=== PATIENT | female | born 1940 | race Caucasian/White ===

== ENCOUNTER 2019-11-28 21:37 | Inpatient (IN) | payer MEDICARE, OTHER ==
[~2019-11-28] VITALS: Ht 160 cm; Wt 57.7 kg
[~2019-11-28 21:37] MED LIST: CORDARONE200 MG PO; LOSARTAN-HCTZ1 EACH PO; METOPROLOL SUCC25 MG PO; PILOCARPINE HCL5 MG PO; Z.0.HYZAAR 50-12.51 PO; Z.0.PRILOSEC20 MG PO
--- OUTSIDE RECORDS SUMMARY | 2019-11-28 21:40 | XMS REPORT ---
Author Author [facility] Address Unknown Phone Unavailable Care Team Providers Care Assistant Corporate Controller Name Role Phone Unavailable Unavailable Problems This patient has no known problems. Allergies, Adverse Reactions, Alerts This patient has no known allergies or adverse reactions. Medications This patient has no known medications. Encounters Start Date/Time End Date/Time Encounter Type Admission Type Attending Clinicians Care Facility Care Department Encounter ID 2019-10-13 06:11:00 2019-10-13 06:11:00 Outpatient [facility] [id number] Results Test Description Test Time Test Comments Text Results Atomic Results Result Comments BREAST ULTRASOUND BILATERAL 2019-06-17 09:25:17 - BREAST ULTRASOUND BILATERALULTRASOUND OF BOTH BREASTS AND BOTH AXILLA: 06/16/2019CLINICAL: Supplemental Screening for Dense Breast. Comparison is made to exams dated 05/19/2019 mammogram, 04/24/2016 mammogram, 05/09/2015 mammogram, and 05/09/2015 ultrasound - [facility]. Real-time ultrasound of both breasts and both axilla and clinical breast exam were performed. No abnormalities were seen sonographically in either axilla. Benign cysts and dilated ducts were seen bilaterally. No solid masses were seen. IMPRESSION: BENIGN There is no sonographic evidence of malignancy. Patient has been informed that she has areas of dense breast tissue that could make it difficult to find a small cancer. A screening mammogram and supplemental ultrasound for dense breast tissue is recommended in 1 year.Stephany Ramsey M.D. dm/:06/17/2019 09:25:17 Supervisor Intermediates: Dory Clemente FW, [facility] sent: BIRADS 1-2 Combo FU Letter Ultrasound BI-RADS: 2 Benign SCR MAMM BILATERAL LORENA CAD DIGITAL 2019-05-20 18:03:23 - SCR MAMM BILATERAL LORENA CAD DIGITALBILATERAL DIGITAL SCREENING MAMMOGRAM 3D/2D WITH CAD: 05/19/2019CLINICAL: Asymptomatic. Digital breast tomosynthesis was performed in addition to routine CC and MLO views. Current mammographic images were evaluated by either a Altruja M-Vu or a MobiTX ImageChecker CAD (computer aided detection system). Comparison is made to exams dated 04/24/2016 mammogram, 04/23 mammogram, and 04/20/2014 mammogram - [facility]. The tissue of both breasts is heterogeneously dense. This may lower the sensitivity of mammography. There is a benign calcification in the left breast. No suspicious mass, architectural distortion, malignant type calcification, or lymph node abnormality detected. Breast architecture is stable compared to prior exams.IMPRESSION: BENIGNThere is no mammographic evidence of malignancy. Resume annual screening mammography in one year. [facility]inai goetz/scooter:05/20/2019 18:03:23 Supervisor Intermediates: Regina WILDE, [facility] sent: BIRADS 1-2 Normal Mammogram BI-RADS: 2 Benign
[2019-11-28] MEDS ORDERED: SODIUM CHLORIDE 0.9% 1000ML 1,000 ML IV ONE (22:00)
[2019-11-28 22:03] LABS: BASOPHILS % 0.3 % (0.0-1.0); EOSINOPHILS # (AUTO) 0.2 (0.0-0.4); EOSINOPHILS % 1.6 % (0.0-6.0); HEMATOCRIT 34.7 % (34.2-44.1); LYMPHOCYTES # (AUTO) 1.9 (1.0-3.2); LYMPHOCYTES % 17.3 % (18.0-39.1); MEAN CORPUSCULAR HEMOGLOBIN 25.7 pg (28-32); MEAN CORPUSCULAR HGB CONC 31.7 g/dL (31-35); MEAN CORPUSCULAR VOLUME 81.1 fL (81-99); MONOCYTES # (AUTO) 1.1 (0.2-0.8); MONOCYTES % 10.3 % (4.4-11.3); NEUTROPHILS # (AUTO) 7.7 (2.1-6.9); NEUTROPHILS % 70.1 % (38.7-80.0); PLATELET COUNT 430 x10e3/uL (140-360); RED BLOOD COUNT 4.28 x10e6/uL (3.6-5.1); RED CELL DISTRIBUTION WIDTH 15.1 % (11.7-14.4)
[2019-11-28] MEDS ORDERED: ONDANSETRON HCL INJ 2MG/ML 2ML 2 MG/ML VIAL IV STA (22:08)
[2019-11-28] MEDS ORDERED: CIPROFLOXACIN 400 MG/D5W 200ML 200 ML IV STA (22:08)
[2019-11-28] MEDS ORDERED: METRONIDAZOLE 500MG/NS 100ML 100 ML IV STA (22:08)
[2019-11-28] MEDS ORDERED: MORPHINE SULFATE INJ 4 MG/ML INJ 1ML IV PRN (22:15)
[2019-11-28 22:21] LABS: ALANINE AMINOTRANSFERASE 13 IU/L (0-55); ALBUMIN 3.8 g/dL (3.5-5.0); ALBUMIN/GLOBULIN RATIO 0.7 (0.8-2.0); ALKALINE PHOSPHATASE 84 IU/L (40-150); ANION GAP 16.6 mmol/L (8-16); BLOOD UREA NITROGEN 12 mg/dL (7-26); BUN/CREATININE RATIO 13 (6-25); CALCIUM 9.7 mg/dL (8.4-10.2); CARBON DIOXIDE 26 mmol/L (22-29); CHLORIDE 99 mmol/L (98-107); CREATINE KINASE 37 IU/L (29-168); EST GLOMERULAR FILTRATION RATE > 60 ML/MIN (60-); GLUCOSE 111 mg/dL (74-118); POTASSIUM 3.6 mmol/L (3.5-5.1); SODIUM 138 mmol/L (136-145)
--- NOTE | 2019-11-28 23:59 | Diagnostic Imaging Report ---
EXAMINATION: CHEST SINGLE (PORTABLE) INDICATION: Abdominal pain COMPARISON: None FINDINGS: TUBES and LINES: None. LUNGS: Normal lung volumes. Lungs are clear. No consolidations. PLEURA: No pleural effusion or pneumothorax. HEART AND MEDIASTINUM: Lobular soft tissue fullness in the lower mediastinum. The cardiomediastinal silhouette is within normal size limits. Aortic calcifications. BONES AND SOFT TISSUES: Degenerative changes in the spine and shoulders. Soft tissues are unremarkable. UPPER ABDOMEN: No free air under the diaphragm. IMPRESSION: Findings of a sliding hiatal hernia. Signed by: Morales Jimenez DO on 11/28/2019 11:55 PM
[2019-11-29] VITALS (7 sets, daily range): BP systolic 102–151; BP diastolic 74–95
[2019-11-29 00:02] LABS: CLARITY,URINE CLEAR (CLEAR); COLOR,URINE YELLOW (YELLOW); LEUKOCYTE ESTERASE ,URINE NEGATIVE (NEGATIVE); NITRITE,URINE NEGATIVE (NEGATIVE)
[2019-11-29 00:03] LABS: BILIRUBIN,URINE NEGATIVE (NEGATIVE); KETONES,URINE NEGATIVE (NEGATIVE); PROTEIN,URINE DIPSTICK NEGATIVE (NEGATIVE); URINE UROBILINOGEN 0.2 mg/dL (0.2 - 1)
[2019-11-29 00:19] LABS: BACTERIA,URINE RARE /HPF; EPITHELIAL CELLS,URINE FEW /LPF; RBC,URINE 0-5 /HPF (0-5); WBC,URINE (MAN) 0-5 /HPF (0-5)
[2019-11-29] MEDS ORDERED: SODIUM CHLORIDE 0.9% 50ML 50 ML ONE (00:30)
[2019-11-29] MEDS ORDERED: IOPAMIDOL 370 MG/ML 200 ML INFUS..BTL INJ ONE (00:30)
--- NOTE | 2019-11-29 01:16 | Diagnostic Imaging Report ---
EXAM: CT Abdomen and Pelvis WITH contrast INDICATION: Diarrhea, cough COMPARISON: Chest x-ray 11/28/2019 TECHNIQUE: Abdomen and pelvis were scanned utilizing a multidetector helical scanner from the lung base to the pubic symphysis after administration of IV contrast. Coronal and sagittal reformations were obtained. Routine protocol was performed. Scan was performed when during portal venous phase. IV CONTRAST: 100 mL of Isovue 370 ORAL CONTRAST: None COMPLICATIONS: None RADIATION DOSE: Total DLP: 567 mGy*cm Estimated effective dose: (DLP x 0.015 x size factor) mSv CTDIvol has been reviewed. It is below the limits set by the Radiation Protocol Committee (RPC). Dose modulation, iterative reconstruction, and/or weight based adjustment of the mA/kV was utilized to reduce the radiation dose to as low as reasonably achievable. FINDINGS: LINES and TUBES: None. LOWER THORAX: Unremarkable HEPATOBILIARY: Subcentimeter hypodensity in the right hepatic lobe, too small to characterize, likely benign. No biliary ductal dilation. GALLBLADDER: There are cholecystectomy clips. SPLEEN: No splenomegaly. PANCREAS: There is fatty infiltration of the pancreas. No focal mass. ADRENALS: No adrenal nodules KIDNEYS/URETERS: Kidneys enhance symmetrically. No hydronephrosis. Right renal superior pole simple cyst. There are a few other scattered too small to characterize hypodensites, likely benign. No stones. GI TRACT: Partially visualized large sliding gastric hiatal hernia. Sigmoid colonic wall thickening and pericolonic fat stranding, with a 7 mm hypodensity within the wall of the sigmoid colon (series 300 image 55).. Extensive colonic diverticulosis, worst in the sigmoid colon. No abnormal distention evidence of bowel obstruction. Appendix is not clearly identified. There is however no fat stranding or adenopathy in the right lower quadrant to suggest appendicitis. PELVIC ORGANS/BLADDER: Hysterectomy. No adnexal masses. Urinary bladder unremarkable. LYMPH NODES: No lymphadenopathy. VESSELS: Scattered mild arterial vascular calcifications. PERITONEUM / RETROPERITONEUM: No free air or fluid. BONES: Degenerative changes in the spine hips and pelvis. SOFT TISSUES: Unremarkable. IMPRESSION: 1. Acute sigmoid diverticulitis, with a 7 mm intramural abscess. 2. Partially visualized large sliding gastric hiatal hernia. Signed by: Morales Jimenez DO on 11/29/2019 1:13 AM
[2019-11-29] MEDS ORDERED: METRONIDAZOLE 500MG/NS 100ML 100 ML IV STA (01:31)
[2019-11-29] MEDS ORDERED: CIPROFLOXACIN 400 MG/D5W 200ML 200 ML IV SCH ×2 (01:45→09:00)
[2019-11-29] MEDS ORDERED: OMEPRAZOLE40 MG PO (02:39)
[2019-11-29] MEDS ORDERED: AMLODIPINE BESYL5 MG PO (02:39)
[2019-11-29] MEDS ORDERED: LOSARTAN POTAS100 MG PO (02:39)
[2019-11-29] MEDS ORDERED: HYDROCHLOROTH12.5 MG PO (02:39)
[2019-11-29] MEDS ORDERED: GABAPENTIN100 MG PO (02:39)
--- NOTE | 2019-11-29 02:42 | NUR ---
Patient placed in hospital bed at this time.
[2019-11-29] MEDS: FENTANYL CITRATE/PF 100MCG/2 ML INJ IV ONE ×2 (03:21→05:24)
[2019-11-29] MEDS: METRONIDAZOLE 500MG/NS 100ML 100 ML IV SCH ×3 (05:12→21:39)
[2019-11-29] MEDS: ONDANSETRON HCL INJ 2MG/ML 2ML 2 MG/ML VIAL IV PRN (05:24)
--- NOTE | 2019-11-29 06:48 | History and Physical ---
REASON FOR ADMISSION: Diverticulitis with abscess. HISTORY OF PRESENT ILLNESS: The patient is a 79-year-old lady with a history of irritable bowel syndrome with diarrhea, who presented with a 1-week history of diarrhea, low-grade temps and increasing abdominal pain, last week went to the emergency room where she was found to have sigmoid diverticulitis with about a 7-mm abscess, so she has been admitted for further evaluation and treatment. PAST MEDICAL HISTORY: Significant for irritable bowel syndrome and hypertension. MEDICATIONS: See MAR. ALLERGIES: CODEINE, MORPHINE, SULFA, AND TRAZODONE. SOCIAL HISTORY: Nonsmoker and nondrinker. FAMILY HISTORY: Noncontributory. PHYSICAL EXAMINATION: VITAL SIGNS: Temperature 98.6, blood pressure 156/74, pulse 74, and sats 97%. GENERAL: She is in no apparent distress, lying in bed. NECK: Supple. CARDIOVASCULAR: Regular rate and rhythm. LUNGS: Clear to auscultation bilaterally. ABDOMEN: Good bowel sounds. She is soft and nondistended, but she is tender in the left lower quadrant area without peritoneal signs. EXTREMITIES: No clubbing or cyanosis. NEUROLOGIC: Nonfocal. ASSESSMENT AND PLAN: 1. Sigmoid diverticulitis with abscess. Continue with the current antibiotic regimen and we will consult Surgery to evaluate her. 2. Hypertension. We will continue to monitor. 3. Leukocytosis. Continue to monitor. 4. Anemia. We will continue to monitor. 5. Irritable bowel syndrome with diarrhea. We will also continue to monitor. Place the patient on antibiotics. Please see hospital chart for full details. MD MAURILIO Lerma/LEONARD /[id number]
--- NOTE | 2019-11-29 06:49 | NUR ---
Report to ANNAMARIE Watts.
--- NOTE | 2019-11-29 08:00 | NUR ---
Patient arrived from the ER at 0742 via a wheelchair. Patient was AOx3, VS WNL, c/o of pain in her knee and Dr. Saldana was called. Dr. Saldana did continue all over her medications and also ordered saline nasal spray due to SJ syndrome (c/o dry nasal cavity). Patient is NPO until the next steps are determined. Patient has a 20g in the R AC. Patient is ordered 2 IV antibiotics. Will continue to monitor.
[2019-11-29] MEDS ORDERED: SODIUM CHLORIDE 0.9% 250ML 250 ML ONE (08:38)
[2019-11-29] MEDS: PIPER-TAZ 3.375 GM 50 ML IV SCH ×3 (08:49→16:39)
--- NOTE | 2019-11-29 10:24 | Consultation ---
DATE OF CONSULTATION: 11/29/2019 CHIEF COMPLAINT: Abdominal pain. HISTORY OF PRESENT ILLNESS: This patient is a 79-year-old female with 1-week history of progressive abdominal pain, particularly in the lower abdomen with anorexia, nausea, but no vomiting. Obstipations and constipations present. The patient denies fever or chills. PAST MEDICAL HISTORY: Positive for atrial fibrillation, hypertension, and Sjogren syndrome. PAST SURGICAL HISTORY: 1. Positive for hysterectomy. 2. Cholecystectomy. 3. Bilateral knee replacement. ALLERGIES: SHE HAS ALLERGIC REACTIONS TO SULFA, TRAZODONE, CODEINE AND MORPHINE. SOCIAL HABITS: She denies smoking or alcohol use. REVIEW OF SYSTEMS: As in HPI. PHYSICAL EXAMINATION: VITAL SIGNS: Stable. She had a T-max of 100. GENERAL: The patient is awake, alert, in moderate discomfort. HEENT: Sclerae anicteric. NECK: Supple. LUNGS: Clear. HEART: Regular rate and rhythm. ABDOMEN: Soft with mild distention and some minimal guarding in the left lower quadrant with no rebound. EXTREMITIES: No cyanosis or edema. LABORATORY DATA: White cell count is 11, hemoglobin 11. Creatinine of 0.9. CT of the abdomen shows sigmoid diverticulitis with a small 7 mm focus of intramural abscess. Large gastric hiatal hernia noted. ASSESSMENT: Acute sigmoid diverticulitis with small perforations intramurally. PLAN: Continue IV antibiotics. N.p.o. until the GI activity resume. We will follow the patient. MD NICO Soares/LEONARD /[id number]
[2019-11-29] MEDS: GABAPENTIN 300 MG CAP PO SCH ×2 (11:50→16:39)
[2019-11-29] MEDS ORDERED: SALINE 0.65% NAS SOLN 1 SPRAY BTL PRN (12:15)
[2019-11-29] MEDS: AMLODIPINE BESYLATE 5 MG TAB PO SCH (16:39)
--- NOTE | 2019-11-29 19:14 | NUR ---
Received bedside from day nurse. Patient awake and sitting up in bed, no s/s of distress at this time. Bed locked and in low position, call light placed within reach. All safety measures in place. Will continue to monitor.
--- NOTE | 2019-11-29 21:47 | NUR ---
Patient complaining of abdominal pain. Paged Dr. Saldana and received orders to give IV Tylenol Q6 PRN.
[2019-11-29] MEDS ORDERED: ACETAMINOPHEN 1000 MG/100 ML IV PRN (22:00)
[2019-11-30] VITALS (9 sets, daily range): BP systolic 94–116; BP diastolic 53–70
[2019-11-30] MEDS: PIPER-TAZ 3.375 GM 50 ML IV SCH ×4 (00:17→17:11)
[2019-11-30] MEDS: METRONIDAZOLE 500MG/NS 100ML 100 ML IV SCH ×3 (05:14→21:42)
[2019-11-30 05:28] LABS: BASOPHILS % 0.4 % (0.0-1.0); EOSINOPHILS # (AUTO) 0.3 (0.0-0.4); EOSINOPHILS % 3.5 % (0.0-6.0); HEMATOCRIT 31.4 % (34.2-44.1); HEMOGLOBIN 9.7 g/dL (12.0-16.0); LYMPHOCYTES # (AUTO) 1.6 (1.0-3.2); LYMPHOCYTES % 19.9 % (18.0-39.1); MEAN CORPUSCULAR HEMOGLOBIN 25.3 pg (28-32); MEAN CORPUSCULAR HGB CONC 30.9 g/dL (31-35); MONOCYTES # (AUTO) 1.2 (0.2-0.8); MONOCYTES % 14.3 % (4.4-11.3); NEUTROPHILS % 61.5 % (38.7-80.0); PLATELET COUNT 369 x10e3/uL (140-360); RED BLOOD COUNT 3.83 x10e6/uL (3.6-5.1); RED CELL DISTRIBUTION WIDTH 15.1 % (11.7-14.4)
[2019-11-30 06:00] LABS: ALANINE AMINOTRANSFERASE 11 IU/L (0-55); ALBUMIN/GLOBULIN RATIO 0.7 (0.8-2.0); ALKALINE PHOSPHATASE 65 IU/L (40-150); ANION GAP 10.4 mmol/L (8-16); BLOOD UREA NITROGEN 13 mg/dL (7-26); BUN/CREATININE RATIO 15 (6-25); CALCIUM 8.8 mg/dL (8.4-10.2); CARBON DIOXIDE 26 mmol/L (22-29); CHLORIDE 104 mmol/L (98-107); CREATININE, SERUM 0.87 mg/dL (0.57-1.11); EST GLOMERULAR FILTRATION RATE > 60 ML/MIN (60-); GLUCOSE 75 mg/dL (74-118); POTASSIUM 3.4 mmol/L (3.5-5.1); SODIUM 137 mmol/L (136-145)
--- NOTE | 2019-11-30 07:04 | NUR ---
Paged Dr. Saldana regarding patient's potassium level of 3.4. Awaiting reply at this time.
--- NOTE | 2019-11-30 07:06 | NUR ---
Bedside report given to day nurse. Patient awake and resting in bed, no s/s of distress at this time. All safety measures in place.
[2019-11-30] MEDS ORDERED: POTASSIUM CHLORIDE 20 MEQ TAB CR PO STA (07:11)
--- NOTE | 2019-11-30 07:11 | NUR ---
Received orders from Dr. Saldana to give 40 mEq potassium PO once. Addendum: 11/30/19 at 0713 by Madalyn Matthews RN Give IV, not PO, due to patient's NPO status.
[2019-11-30] MEDS ORDERED: PANTOPRAZOLE SOD 40 MG TABEC PO SCH (07:30)
[2019-11-30] MEDS: POTASSIUM CHLORIDE 20MEQ/100ML 200 ML IV ONE ×2 (08:04→09:50)
[2019-11-30] MEDS ORDERED: SODIUM CHLORIDE 0.9% 250ML 250 ML ONE (08:37)
[2019-11-30] MEDS: PANTOPRAZOLE SOD 40 MG TABEC PO SCH ×3 (09:00→17:11)
[2019-11-30] MEDS ORDERED: HYDROCHLOROTHIAZIDE 25 MG TAB PO SCH (09:00)
[2019-11-30] MEDS: AMLODIPINE BESYLATE 5 MG TAB PO SCH ×2 (09:00→17:11)
[2019-11-30] MEDS ORDERED: LOSARTAN POTASSIUM 100 MG TAB PO SCH (09:00)
[2019-11-30] MEDS: GABAPENTIN 300 MG CAP PO SCH ×3 (09:00→17:11)
[2019-11-30] MEDS: ONDANSETRON HCL INJ 2MG/ML 2ML 2 MG/ML VIAL IV PRN (09:51)
[2019-11-30] MEDS ORDERED: POTASSIUM CHLORIDE 20 MEQ TAB CR PO ONE (10:55)
[2019-11-30] MEDS: ZOLPIDEM TARTRATE 5 MG TAB PO PRN (23:24)
[2019-12-01] VITALS (11 sets, daily range): BP systolic 95–127; BP diastolic 59–70
[2019-12-01] MEDS: PIPER-TAZ 3.375 GM 50 ML IV SCH ×4 (00:06→18:19)
--- NOTE | 2019-12-01 03:50 | NUR ---
PATIENT WAS GIVEN AMBIEN OVERNIGHT FOR SLEEPLESSNESS, PATIENT SEEN DURING HOURLY ROUNDING AWAKE IN BED, C/O RIGHT LEG PAIN, R/T SCIATIC NERVE PAIN 12/15, ASKING FOR HEATING PAD, GIVEN DIY WARM COMPRESS FOR RIGHT LEG, PATIENT TOLERATED WARMTH OF COMPRESS WELL, RESTING IN BED CALL LIGHT WITHIN RECH
[2019-12-01] MEDS: METRONIDAZOLE 500MG/NS 100ML 100 ML IV SCH ×3 (05:24→21:59)
--- NOTE | 2019-12-01 09:00 | NUR ---
aware of B/P 102/59. BP medications on hold.
[2019-12-01] MEDS: PANTOPRAZOLE SOD 40 MG TABEC PO SCH ×2 (09:20→17:56)
[2019-12-01] MEDS: GABAPENTIN 300 MG CAP PO SCH ×2 (09:20→17:56)
[2019-12-01] MEDS ORDERED: MAGNESIUM HYDROXIDE 30 ML UDC PO ONE (10:20)
[2019-12-01] MEDS ORDERED: SODIUM CHLORIDE 0.9% 250ML 250 ML ONE (11:58)
[2019-12-01] MEDS: ONDANSETRON HCL INJ 2MG/ML 2ML 2 MG/ML VIAL IV PRN (12:20)
[2019-12-01] MEDS: DOCUSATE SODIUM 100 MG CAP PO SCH (17:00)
--- NOTE | 2019-12-01 19:04 | NUR ---
Report given to oncoming nurse. AAOx4. Call light within reach, bed locked and in low position, and SR up X2.
--- NOTE | 2019-12-01 22:00 | NUR ---
PATIENT REQUESTING PRN INSOMNIA MEDICATION, REQUEST CARRIED OUT, GIVEN AMBIEN PO, TOLERATED WELL
[2019-12-02] VITALS (10 sets, daily range): BP systolic 102–149; BP diastolic 61–81
[2019-12-02] MEDS: PIPER-TAZ 3.375 GM 50 ML IV SCH ×4 (00:50→18:50)
--- NOTE | 2019-12-02 01:49 | NUR ---
call light answered, pt seen lying in bed, grimacing, c/o pain level 7-8/10 r/t sciatic right leg pain,
[2019-12-02] MEDS: ONDANSETRON HCL 4 MG ORAL DISINTEGRATING TAB PO PRN ×2 (02:10→16:12)
[2019-12-02] MEDS: HYDROCODONE/APAP 5MG-325MG TAB PO PRN ×2 (02:11→12:53)
--- NOTE | 2019-12-02 04:57 | NUR ---
patient c/o heartburn and diarrhea, MD JACKSON MADE AWARE VERBALLY DURING ROUNDING, ORDER MAALOX q4H PRN FOR INDIGESTION TO START CHYNA, ORDER CARRIED OUT Addendum: 12/02/19 at 0459 by ALMA RECINOS RN PER MD JACKSON HE WILL ADD TO eMAR MEDICATION FOR DIARRHEA PRN
[2019-12-02] MEDS: METRONIDAZOLE 500MG/NS 100ML 100 ML IV SCH ×2 (05:02→13:38)
[2019-12-02 05:23] LABS: BASOPHILS % 0.4 % (0.0-1.0); EOSINOPHILS # (AUTO) 0.3 (0.0-0.4); EOSINOPHILS % 4.4 % (0.0-6.0); HEMATOCRIT 29.8 % (34.2-44.1); HEMOGLOBIN 9.4 g/dL (12.0-16.0); LYMPHOCYTES # (AUTO) 1.8 (1.0-3.2); LYMPHOCYTES % 23.2 % (18.0-39.1); MEAN CORPUSCULAR HEMOGLOBIN 25.8 pg (28-32); MEAN CORPUSCULAR HGB CONC 31.5 g/dL (31-35); MEAN CORPUSCULAR VOLUME 81.6 fL (81-99); MONOCYTES # (AUTO) 0.9 (0.2-0.8); NEUTROPHILS # (AUTO) 4.7 (2.1-6.9); NEUTROPHILS % 59.6 % (38.7-80.0); PLATELET COUNT 377 x10e3/uL (140-360); RED BLOOD COUNT 3.65 x10e6/uL (3.6-5.1); RED CELL DISTRIBUTION WIDTH 14.8 % (11.7-14.4)
[2019-12-02] MEDS: MAGNESIUM/ALUMINUM/SIMETHICONE 30 ML UDC PO PRN ×2 (05:30→16:11)
[2019-12-02] MEDS ORDERED: LOPERAMIDE HCL 2 MG CAP PO PRN (05:30)
[2019-12-02] MEDS: LOPERAMIDE HCL 2 MG CAP PO SCH ×2 (05:30→05:57)
[2019-12-02] MEDS ORDERED: OMEPRAZOLE 20 MG CAP PO STA (05:31)
[2019-12-02 05:57] LABS: ALANINE AMINOTRANSFERASE 11 IU/L (0-55); ALBUMIN 2.9 g/dL (3.5-5.0); ALBUMIN/GLOBULIN RATIO 0.6 (0.8-2.0); ALKALINE PHOSPHATASE 67 IU/L (40-150); ANION GAP 11.6 mmol/L (8-16); BLOOD UREA NITROGEN 7 mg/dL (7-26); BUN/CREATININE RATIO 9 (6-25); CALCIUM 8.8 mg/dL (8.4-10.2); CARBON DIOXIDE 22 mmol/L (22-29); CHLORIDE 105 mmol/L (98-107); CREATININE, SERUM 0.76 mg/dL (0.57-1.11); EST GLOMERULAR FILTRATION RATE > 60 ML/MIN (60-); GLUCOSE 103 mg/dL (74-118); MAGNESIUM 1.5 MG/DL (1.3-2.1); POTASSIUM 3.6 mmol/L (3.5-5.1); SODIUM 135 mmol/L (136-145)
[2019-12-02] MEDS: ONDANSETRON HCL INJ 2MG/ML 2ML 2 MG/ML VIAL IV PRN (05:57)
--- NOTE | 2019-12-02 07:00 | NUR ---
Notified of blood culture results. No new orders at this time.
[2019-12-02] MEDS: DOCUSATE SODIUM 100 MG CAP PO SCH ×2 (07:07→16:13)
[2019-12-02] MEDS: LOPERAMIDE HCL 2 MG CAP PO PRN ×2 (07:08→15:27)
--- NOTE | 2019-12-02 07:52 | NUR ---
Patient c/o heartburn see orders.
[2019-12-02] MEDS: PANTOPRAZOLE SOD 40 MG TABEC PO SCH ×2 (08:18→16:11)
[2019-12-02] MEDS: GABAPENTIN 300 MG CAP PO SCH ×2 (08:18→16:11)
[2019-12-02] MEDS: CALCIUM CARBONATE 500 MG CHEWABLE TABS PO PRN ×2 (13:13→13:15)
--- NOTE | 2019-12-02 19:10 | NUR ---
Report given to oncoming nurse. AAOx4. Resting in bed. Bed locked and in low position, SR up x2, call light within reach.
[2019-12-03] VITALS (9 sets, daily range): BP systolic 112–159; BP diastolic 70–90
[2019-12-03] MEDS: METRONIDAZOLE 500MG/NS 100ML 100 ML IV SCH ×4 (00:40→22:15)
[2019-12-03] MEDS: PIPER-TAZ 3.375 GM 50 ML IV SCH ×4 (00:50→20:20)
[2019-12-03] MEDS: LOPERAMIDE HCL 2 MG CAP PO SCH (03:52)
--- NOTE | 2019-12-03 06:11 | Progress Note ---
DATE: SUBJECTIVE: The patient came in with diverticulitis with abscess, currently on a soft mechanical diet. The patient had diarrhea yesterday, 1 bout of diarrhea and 1 bowel movement. No chest pain. No shortness of breath. Complains of allergic symptoms, which she takes nasal spray at home. CURRENT MEDICATIONS: Include amlodipine for blood pressure, hydrochlorothiazide, hydrocodone as needed, losartan, magnesium, Zofran as needed, pantoprazole, and Zosyn. OBJECTIVE: VITAL SIGNS: Temperature is 98.2, pulse of 76, respirations of 18, blood pressure is 112/70, pulse oximetry of 97% on room air. HEENT: Normocephalic and atraumatic. Pupils are reactive. CVS: S1 and S2 normal. Regular rate and rhythm. ABDOMEN: Soft, slightly tender in the left lower quadrant. EXTREMITIES: No clubbing, no cyanosis, no edema. LABORATORY VALUES: From yesterday, white count 7.1, hemoglobin of 9.4, hematocrit of 29.8. Chemistries; sodium of 135, potassium is 3.6. MICROBIOLOGY: Blood culture grew Staphylococcus aureus, sensitive to Levaquin. PLAN: Continue to monitor the patient. The patient is doing better. Continue current diet. X-rays and CT scans reviewed. Again, diagnosis will be diverticular abscess and positive blood culture Gram stain. Further recommendation per clinical course. We will continue to monitor the patient and blood work in the morning. DISPOSITION: Plan to discharge in 1 to 2 days. MD TESSIE Martinez/MODL /[id number]
[2019-12-03] MEDS: AZELASTINE HCL 137 MCG NASAL SPRAY NS SCH ×2 (09:00→12:42)
[2019-12-03] MEDS: DOCUSATE SODIUM 100 MG CAP PO SCH ×2 (09:00→12:42)
[2019-12-03] MEDS: LORATADINE 10 MG TAB PO SCH (11:20)
[2019-12-03] MEDS: GABAPENTIN 300 MG CAP PO SCH ×2 (11:20→17:26)
[2019-12-03] MEDS: PANTOPRAZOLE SOD 40 MG TABEC PO SCH ×2 (11:20→17:27)
[2019-12-03] MEDS: HYDROCODONE/APAP 5MG-325MG TAB PO PRN (17:44)
--- NOTE | 2019-12-03 19:41 | NUR ---
Received bedside report from day nurse. Patient awake and resting in place, no s/s of distress at this time. Bed locked and in low position, call light placed within reach. All safety measures in place. Will continue to monitor.
[2019-12-03] MEDS: ZOLPIDEM TARTRATE 5 MG TAB PO PRN (22:30)
[2019-12-04] VITALS (9 sets, daily range): BP systolic 126–147; BP diastolic 69–91
[2019-12-04] MEDS: PIPER-TAZ 3.375 GM 50 ML IV SCH ×4 (01:30→20:29)
[2019-12-04] MEDS: METRONIDAZOLE 500MG/NS 100ML 100 ML IV SCH ×3 (05:44→21:37)
[2019-12-04 06:02] LABS: BASOPHILS % 0.6 % (0.0-1.0); EOSINOPHILS # (AUTO) 0.5 (0.0-0.4); HEMATOCRIT 29.9 % (34.2-44.1); HEMOGLOBIN 9.6 g/dL (12.0-16.0); LYMPHOCYTES # (AUTO) 1.7 (1.0-3.2); LYMPHOCYTES % 33.5 % (18.0-39.1); MEAN CORPUSCULAR HGB CONC 32.1 g/dL (31-35); MONOCYTES # (AUTO) 0.8 (0.2-0.8); MONOCYTES % 14.7 % (4.4-11.3); NEUTROPHILS # (AUTO) 2.1 (2.1-6.9); PLATELET COUNT 408 x10e3/uL (140-360); RED BLOOD COUNT 3.69 x10e6/uL (3.6-5.1); RED CELL DISTRIBUTION WIDTH 14.9 % (11.7-14.4)
[2019-12-04 06:29] LABS: ANION GAP 9.6 mmol/L (8-16); BLOOD UREA NITROGEN 5 mg/dL (7-26); BUN/CREATININE RATIO 7 (6-25); CARBON DIOXIDE 27 mmol/L (22-29); CHLORIDE 106 mmol/L (98-107); CREATININE, SERUM 0.69 mg/dL (0.57-1.11); EST GLOMERULAR FILTRATION RATE > 60 ML/MIN (60-); GLUCOSE 89 mg/dL (74-118); POTASSIUM 3.6 mmol/L (3.5-5.1); SODIUM 139 mmol/L (136-145)
--- NOTE | 2019-12-04 07:06 | NUR ---
Bedside report given to day nurse. Patient awake and resting in bed, no s/s of distress at this time. Bed locked and in low position, call light placed within reach. All safety measures in place.
--- NOTE | 2019-12-04 07:06 | NUR ---
bedside shift report received from PM nurse. pt in stable condition. will continue to monitor.
--- NOTE | 2019-12-04 08:09 | Progress Note ---
DATE: SUBJECTIVE: The patient is a 79-year-old female, who came in with diverticulitis with an abscess, which is contained. Currently, the patient is feeling better. Positive for flatus and positive for bowel movements, which are more consistent compared to diarrhea yesterday. Medicines are reviewed. The patient's nasal congestion is better. OBJECTIVE: VITAL SIGNS: Temperature is 96.9, afebrile, pulse of 75, respirations of 18, blood pressure is 147/91, pulse oximetry of 98%. HEENT: Normocephalic and atraumatic. Pupils are reactive to light and accommodation. CVS: S1 and S2 are normal. Regular rate and rhythm. ABDOMEN: Nontender, nondistended. EXTREMITIES: No clubbing, no cyanosis, no edema. LABORATORY VALUES: White count today was 5.10, hemoglobin of 9.6, hematocrit of 29.2. Chemistry shows sodium of 139, potassium of 3.6, BUN of 5, and creatinine of 0.69. ASSESSMENT: Ms. Lan Cuff with: 1. Diverticulitis with abscess. Plan, continue to monitor the patient. X-rays and CT scans are reviewed, doing better. 2. Nasal congestion. Continue on current medication. 3. Nausea. Continue medication. 4. Pain medicine management, [place] 5/325. The patient is currently on and metronidazole. Further recommendation per clinical course. We will continue to monitor the patient. Advance her diet today and possible discharge in 1 to 2 days. MD TESSIE Martinez/LEONARD /[id number]
[2019-12-04] MEDS: LORATADINE 10 MG TAB PO SCH (08:38)
[2019-12-04] MEDS: DOCUSATE SODIUM 100 MG CAP PO SCH ×2 (08:38→16:11)
[2019-12-04] MEDS: GABAPENTIN 300 MG CAP PO SCH ×2 (08:38→17:49)
[2019-12-04] MEDS: PANTOPRAZOLE SOD 40 MG TABEC PO SCH ×2 (08:38→17:49)
[2019-12-04] MEDS: AZELASTINE HCL 137 MCG NASAL SPRAY NS SCH ×2 (08:38→16:11)
[2019-12-04] MEDS: HYDROCODONE/APAP 5MG-325MG TAB PO PRN ×2 (08:44→21:10)
--- NOTE | 2019-12-04 19:32 | NUR ---
Received bedside report from day nurse. Patient awake and resting in bed, no s/s of distress at this time. Bed locked and in low position, call light placed within reach. All safety measures in place. Will continue to monitor.
[2019-12-04] MEDS: ZOLPIDEM TARTRATE 5 MG TAB PO PRN (23:34)
[2019-12-05] VITALS (8 sets, daily range): BP systolic 126–161; BP diastolic 82–88
[2019-12-05] MEDS: PIPER-TAZ 3.375 GM 50 ML IV SCH ×4 (01:39→20:58)
--- NOTE | 2019-12-05 04:58 | NUR ---
Per radiology, keep patient NPO until CT scan scheduled for 0800. Patient verbalized understanding.
[2019-12-05] MEDS: METRONIDAZOLE 500MG/NS 100ML 100 ML IV SCH ×3 (05:02→21:49)
[2019-12-05 06:07] LABS: ANION GAP 8.6 mmol/L (8-16); BLOOD UREA NITROGEN 6 mg/dL (7-26); BUN/CREATININE RATIO 8 (6-25); CALCIUM 8.6 mg/dL (8.4-10.2); CARBON DIOXIDE 28 mmol/L (22-29); CHLORIDE 106 mmol/L (98-107); CREATININE, SERUM 0.76 mg/dL (0.57-1.11); EST GLOMERULAR FILTRATION RATE > 60 ML/MIN (60-); GLUCOSE 91 mg/dL (74-118); POTASSIUM 3.6 mmol/L (3.5-5.1); SODIUM 139 mmol/L (136-145)
--- NOTE | 2019-12-05 07:19 | NUR ---
Bedside report given to day nurses. Patient awake and resting in bed, no s/s of distress at this time. Bed locked and in low position, call light placed within reach. All safety measures in place.
[2019-12-05] MEDS ORDERED: SODIUM CHLORIDE 0.9% 50ML 50 ML ONE (08:49)
[2019-12-05] MEDS ORDERED: IOPAMIDOL 370 MG/ML 200 ML INFUS..BTL INJ ONE (08:49)
--- NOTE | 2019-12-05 08:57 | NUR ---
Nutrition Screen Note RD Recommendation for Physician: -Continue current diet per MD. Plan of Care: RD following, monitoring for tolerance and adequacy Nutrition reason for involvement: (LOS) Primary Diagnose(s): Generalized ab pain PMH: significant for irritable bowel syndrome and hypertension. Ht: 63 in Wt: 127 lb BMI: 22.5 kg/m2 IBW:[address] Assessment: (12/04) 79 YOF admitted for ab pain with PMH listed above. Per MD note the pt came in with diverticulitis with an abscess, which is contained. The pt was seen resting in bed. She reported her appetite has been in the middle of poor and good. Pt has been consuming 25-75% of her meals per EMR. Pt was unsure of any weight loss. Pt was here in Sep and she was 120 lbs suggesting no recent weight loss. The pt denied N/V/C/chewing or swallowing issues as well as any food allergies. Pt reported she did have some diarrhea but it is better now, LBM: 12/03. Pt is on colace and Imodium. Chart reviewed. Labs and meds reviewed. Pt had no other questions or concerns regarding her low fiber diet. Chart reviewed. Will continue to monitor. Current Diet: Gi soft Malnutrition Evaluation (12/04) The patient does not meet criteria for a specified degree of malnutrition at this time. Will re-evaluate at follow-up as appropriate. Diet Education Needs Assessment: Diet education not indicated. Diet Adequacy: (Meeting calorie needs, Meeting protein needs) Nutrition Care Level: low Signed: Laisha Dozier, RD, LD
[2019-12-05] MEDS: PANTOPRAZOLE SOD 40 MG TABEC PO SCH ×2 (11:34→16:47)
[2019-12-05] MEDS: GABAPENTIN 300 MG CAP PO SCH ×2 (11:34→16:47)
[2019-12-05] MEDS: DOCUSATE SODIUM 100 MG CAP PO SCH ×2 (11:34→16:47)
[2019-12-05] MEDS: LORATADINE 10 MG TAB PO SCH (11:35)
--- NOTE | 2019-12-05 12:24 | Diagnostic Imaging Report ---
EXAM: CT Abdomen and Pelvis WITH intravenous contrast INDICATION: Diverticular abscess COMPARISON: CT abdomen and pelvis of 11/29/2019 TECHNIQUE: Abdomen and pelvis were scanned utilizing a multidetector helical scanner from the lung base to the pubic symphysis after administration of IV contrast. Coronal and sagittal reformations were obtained. Routine protocol was performed. Scan was performed during portal venous phase. IV CONTRAST: 100mL of Isovue 370 ORAL CONTRAST: None RADIATION DOSE: Total DLP: 263 mGy*cm Dose modulation, iterative reconstruction, and/or weight based adjustment of the mA/kV was utilized to reduce the radiation dose to as low as reasonably achievable. FINDINGS: LOWER THORAX: Normal. HEPATOBILIARY: Diffuse hepatic steatosis. No focal liver lesion. Unchanged right hepatic cyst. No biliary ductal dilation. Status post cholecystectomy. SPLEEN: No splenomegaly. PANCREAS: No focal masses or ductal dilatation. ADRENALS: No adrenal nodules. KIDNEYS/URETERS: No hydronephrosis or renal calculi. Unchanged right renal cyst. PELVIC ORGANS/BLADDER: Hysterectomy. PERITONEUM / RETROPERITONEUM: No free air or fluid. LYMPH NODES: No lymphadenopathy. VESSELS: Moderate atherosclerotic calcifications of the nonaneurysmal abdominal aorta and major branches. GI TRACT: Diverticulosis. Interval resolution of intramural diverticular abscess. Reduction in wall thickening and fat stranding associated with the previously involved segment of sigmoid colon consistent with resolving diverticulitis. Unchanged hiatal hernia. BONES AND SOFT TISSUES: No acute osseous injury. IMPRESSION: Resolving diverticulitis. Interval resolution of intramural sigmoid colon diverticular abscess. Signed by: Oj Da Silva MD on 12/05/2019 12:21 PM
[2019-12-05] MEDS: AZELASTINE HCL 137 MCG NASAL SPRAY NS SCH ×2 (12:55→16:47)
[2019-12-05] MEDS: HYDROCODONE/APAP 5MG-325MG TAB PO PRN ×2 (15:11→21:24)
--- NOTE | 2019-12-05 19:15 | NUR ---
Received patient awake, not in distress, call light within easy reach, advised to call for assistance when needed, will continue to monitor closely
[2019-12-06] VITALS (10 sets, daily range): BP systolic 121–162; BP diastolic 65–97
[2019-12-06] MEDS: PIPER-TAZ 3.375 GM 50 ML IV SCH ×4 (02:04→20:19)
[2019-12-06] MEDS: HYDROCODONE/APAP 5MG-325MG TAB PO PRN ×3 (04:49→16:45)
[2019-12-06] MEDS: METRONIDAZOLE 500MG/NS 100ML 100 ML IV SCH ×3 (05:33→22:16)
[2019-12-06] MEDS: CYCLOBENZAPRINE HCL 10 MG TAB PO PRN ×2 (06:10→20:19)
[2019-12-06] MEDS ORDERED: SODIUM CHLORIDE 0.9% 250ML 250 ML ONE (06:17)
--- NOTE | 2019-12-06 07:12 | NUR ---
bedside rounding done with dayshift RN, call light within easy reach
[2019-12-06] MEDS: DOCUSATE SODIUM 100 MG CAP PO SCH ×2 (08:15→17:26)
[2019-12-06] MEDS: LORATADINE 10 MG TAB PO SCH (08:15)
[2019-12-06] MEDS: GABAPENTIN 300 MG CAP PO SCH ×2 (08:16→17:26)
[2019-12-06] MEDS: PANTOPRAZOLE SOD 40 MG TABEC PO SCH ×2 (08:16→17:26)
[2019-12-06] MEDS: AZELASTINE HCL 137 MCG NASAL SPRAY NS SCH ×2 (08:16→17:26)
[2019-12-06] MEDS: ZOLPIDEM TARTRATE 5 MG TAB PO PRN (22:24)
[2019-12-07] VITALS (8 sets, daily range): BP systolic 129–149; BP diastolic 81–89
[2019-12-07] MEDS: HYDROCODONE/APAP 5MG-325MG TAB PO PRN ×3 (00:46→23:40)
[2019-12-07] MEDS: PIPER-TAZ 3.375 GM 50 ML IV SCH ×4 (02:25→20:42)
[2019-12-07] MEDS: METRONIDAZOLE 500MG/NS 100ML 100 ML IV SCH ×3 (06:04→21:57)
--- NOTE | 2019-12-07 07:00 | NUR ---
bedside shift report received pt in stable condition, denies pain at this time, updated on poc voiced understanding, l fa 22 g no ss of infiltration noted , no other co voiced call light in reach will continue to monitor
[2019-12-07] MEDS: DOCUSATE SODIUM 100 MG CAP PO SCH ×2 (09:00→17:00)
[2019-12-07] MEDS: AZELASTINE HCL 137 MCG NASAL SPRAY NS SCH ×2 (09:37→17:00)
[2019-12-07] MEDS: LORATADINE 10 MG TAB PO SCH (09:37)
[2019-12-07] MEDS: GABAPENTIN 300 MG CAP PO SCH ×2 (09:38→17:00)
[2019-12-07] MEDS: PANTOPRAZOLE SOD 40 MG TABEC PO SCH ×2 (09:38→17:00)
[2019-12-07] MEDS: CYCLOBENZAPRINE HCL 10 MG TAB PO PRN (09:44)
--- NOTE | 2019-12-07 19:06 | NUR ---
RECEIVED THE PATIENT IN REPORT.AAOX3.SITTING IN THE RECYLINER.STABLE CONDITION.
[2019-12-07] MEDS: ZOLPIDEM TARTRATE 5 MG TAB PO PRN (21:57)
[2019-12-08 00:13] VITALS: BP 140/90
--- NOTE | 2019-12-08 01:19 | NUR ---
Resting well.phone and call light within reach.instructed to call for assistance as needed.
[2019-12-08] MEDS: PIPER-TAZ 3.375 GM 50 ML IV SCH ×3 (02:07→14:00)
[2019-12-08 04:00] VITALS: BP 150/85
[2019-12-08] MEDS: METRONIDAZOLE 500MG/NS 100ML 100 ML IV SCH ×2 (05:32→14:00)
--- NOTE | 2019-12-08 05:46 | Discharge Summary ---
DISCHARGE DIAGNOSIS: Diverticular abscess. HOSPITAL COURSE: The patient is a lady, who presented with lower abdominal pain, where she was noticed on CT scan to have a diverticulitis with an abscess formation. So, she was brought and placed on IV antibiotics. She did have 1 culture grew out Staph aureus out of 2. The patient made significant improvement in a very short period of time with her abdominal pain and repeat CT scan at a later date showed resolution of the abscess with just mild stranding in the diverticulitis area, so she was continued on IV antibiotics for a couple of more days. At discharge, the patient felt great. She really wanted to go home. Her belly exam was completely benign. White count was normal. She was afebrile. She was discharged home with p.o. Levaquin, to take for 10 more days, 500 mg, and she will follow up with me in 1 week. Please see hospital chart for full details. MD MAURILIO Lerma/LEONARD /[id number]
[2019-12-08] MEDS: HYDROCODONE/APAP 5MG-325MG TAB PO PRN (05:50)
--- NOTE | 2019-12-08 07:05 | NUR ---
Bed side shift report given to oncoming Rn.stable condition.
--- NOTE | 2019-12-08 07:10 | NUR ---
RECEIVED BEDSIDE SHIFT REPORT, PATIENT ASLEEP BUT EASILY AROUSED. NO VISIBLE SIGNS OF DISTRESS NOTED. CALL LIGHT WITHIN REACH.
[2019-12-08 07:46] VITALS: BP 158/89
[2019-12-08 08:50] VITALS: BP 158/89
--- NOTE | 2019-12-08 08:56 | NUR ---
DARK GREEN SOFT/LIQUID MEDIUM SIZED STOOL X1, NO FLATULENCE Addendum: 12/08/19 at 0857 by MICHAEL ROCK RN Amended: Links added. Addendum: 12/08/19 at 1140 by MICHAEL ROCK RN Error, wrong patient
[2019-12-08] MEDS: GABAPENTIN 300 MG CAP PO SCH (09:40)
[2019-12-08] MEDS: PANTOPRAZOLE SOD 40 MG TABEC PO SCH (09:40)
[2019-12-08] MEDS: DOCUSATE SODIUM 100 MG CAP PO SCH (09:41)
[2019-12-08] MEDS: AZELASTINE HCL 137 MCG NASAL SPRAY NS SCH (09:41)
[2019-12-08] MEDS: LORATADINE 10 MG TAB PO SCH (09:41)
--- NOTE | 2019-12-08 10:34 | NUR ---
GAVE BPCI LETTER FROM MEDICARE AND REPORTED PLAN OF HOME TO ADMIN FOR TRACKING
[2019-12-08] MEDS: CYCLOBENZAPRINE HCL 10 MG TAB PO PRN (11:55)
--- NOTE | 2019-12-08 13:45 | NUR ---
PATIENT DISCHARGED HOME WITHOUT INCIDENT. DISCHARGE INSTRUCTIONS AND PRESCRIPTIONS GIVEN TO PATIENT. VERBALIZED UNDERSTANDING OF INSTRUCTIONS. TRANSFERRED TO PRIVATE VEHICLE VIA WHEELCHAIR. ALL BELONGING RETURNED TO PATIENT.
== END 2019-12-08 18:12 | disposition home or self-care (01) | DRG 872 ==
LOC: ER 21:37 → ERHOLD 11-29 02:21 → MED/SURG 11-29 07:31
PROVIDERS: ADMIT Internal Medicine; ATTEND Internal Medicine
DX: A41.9 Sepsis, unspecified organism (principal); K57.20 Diverticulitis of large intestine with perforation and abscess without bleeding; I10 Essential (primary) hypertension; D64.9 Anemia, unspecified; K58.0 Irritable bowel syndrome with diarrhea; Z88.5 Allergy status to narcotic agent; Z88.2 Allergy status to sulfonamides; Z88.8 Allergy status to other drugs, medicaments and biological substances; Z90.49 Acquired absence of other specified parts of digestive tract; Z96.653 Presence of artificial knee joint, bilateral; B95.61 Methicillin susceptible Staphylococcus aureus infection as the cause of diseases classified elsewhere; R09.81 Nasal congestion; K21.9 Gastro-esophageal reflux disease without esophagitis; F41.9 Anxiety disorder, unspecified
CPT/HCPCS: 36415; 71045; 74177; 80048; 80053; 81001; 82550; 82553; 83735; 84484; 85025; 87040; 87071; 87186; 87205; 87400; 93005; 99284; J2405; J2543; J3010; J3480; J7030; J7050; Q0162; Q9967

== ENCOUNTER 2020-02-02 10:55 | Inpatient (IN) | payer MEDICARE, OTHER ==
[~2020-02-02] VITALS: Ht 160 cm; Wt 56.4 kg
[~2020-02-02 10:55] MED LIST changes: +AMLODIPINE BESYL5 MG PO; +GABAPENTIN100 MG PO; +HYDROCHLOROTH12.5 MG PO; +LOSARTAN POTAS100 MG PO; +OMEPRAZOLE40 MG PO
--- OUTSIDE RECORDS SUMMARY | 2020-02-02 11:20 | XMS REPORT | Summary of Care ---
Author Author [facility] Outpatient Imaging - [facility] Organization [facility] Outpatient Imaging - [facility] Address Unknown Phone Unavailable Encounter HQ Raul(FIN) [id number] Date(s): 05/14/18 - 05/14/18 [facility] Outpatient Imaging [address], [address] [place] [phone] Encounter Diagnosis Other specified abnormal immunological findings in serum (Final) - 05/19/18 Sicca syndrome, unspecified (Final) - Vitamin D deficiency, unspecified (Final) - Discharge Disposition: Home or Self Care Attending Physician: Briana Casarez MD Referring Physician: Briana Casarez MD Vital Signs No data available for this section Problem List No data available for this section Allergies, Adverse Reactions, Alerts Substance Reaction Severity Status sulfa drugs swelling, hives Active NKFA Active Medications No data available for this section Results No data available for this section Immunizations Given and Recorded Vaccine Date Status Refusal Reason pneumococcal 23-valent vaccine 06/05/07 Given Procedures No data available for this section Social History No data available for this section Assessment and Plan No data available for this section
--- OUTSIDE RECORDS SUMMARY | 2020-02-02 11:20 | XMS REPORT | Continuity of Care Document ---
Author Author Octavio Ashu [employer] CHRISTIANO [place] Organization [facility] [employer] Address Unknown Phone Unavailable Care Team Providers Care Human Relations Professor Name Role Phone [facility] Information [place] Unavailable Un available Problems Problem Status Onset Date Classification Date Reported Comments Source SPONDYLOSIS, CERVICAL DDD Acti ve 10/05/2019 [facility] Other specified abnormal immunological f indings in serum 05/20/2018 12/01/2018 DENNIS Mandujano R42 - DIZZINESS AND GIDDINESS Active 11/11/2017 DENNIS Torre 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 Active 08/08/2015 [facility] Sicca syndrome, unspecified [facility]01[facility] Vitamin D deficiency, unspecified 12/01/2018 [facility] Agency Anxiety (finding) Resolved Problem 10/16/2019 [facility] Colitis (disorder) Resolved Problem 10/16/2019 [facility] Depression - motion (qualifier value) Resolved Problem 10/16/2019 [facility] Diverticulitis (disorder) Reso lved Problem 05/2020 [facility] Gastroesophageal reflux disease (disorder) Active Problem 10/16/2019 [facility] Hypertensive disorder, systemic arterial (disorder) Active Problem 10/16/2019 [facility] Osteoporosis (disorder) Active Problem 10/16/2019 [facility] Sjgren's syndrome (disorder) Active Problem 05/2020 [facility] Medications Medication Details Route Status Patient Instructions Ordering Provider Order Date Source Ibuprofen Notes: (Same as: Mot rin) "Do Not Crush" Give with food. No Longer Active 10/13/2019 [facility] Sodium Chloride 0.9% IV 1,000 mL 1,000 mL, Rate: 75 ml/hr, Infuse over: 13.3 hr, Route: IV, Dosing Weight 60.909 kg, Total Volume: 1,000, Start date: 10/13/19 8:51:00 LEVELER, Duration: 30 day, Stop date: 11/12/19 8:50:00 LEVELER, 1.66, m2, 0 No Longer Active 10/13/2019 [facility] Acetaminophen 325 MG / Hydrocodone Henrique trate 10 MG Oral Tablet Notes: Do not exceed 4gm/day of acetamin ophen. (Same as: Kirkman 325/10) No Longer Active 10/13/2019 [facility] Hydromorphone Notes: Same as D ilaudid No Longer Active 10/13/2019 [facility] Ondansetron Notes: (Same as: Archie hoang) MEDICATION WASTE Product Size: 4 mg Product Wasted: ___ mg No Longer Active 10/13/2019 [facility] Lactated Ringers IV 1,000 mL 1 ,000 mL, Rate: 125 ml/hr, Infuse over: 8 hr, Route: IV, Dosing Weight 60.909 kg, Total Volume: 1,000, Start date: 10/13/19 8:51:00 LEVELER, Duration: 30 day, Stop date: 11/12/19 8:50:00 LEVELER, 1.66, m2, 0 No Longer Active 10/13/2019 [facility] Lactated Ringers IV 1,000 mL 1 ,000 mL, Rate: 125 ml/hr, Infuse over: 8 hr, Route: IV, Dosing Weight 60.909 kg, Total Volume: 1,000, Start date: 10/13/19 7:42:00 LEVELER, Duration: 30 day, Stop date: 11/12/19 7:41:00 LEVELER, 1.66, m2, 0 Inactive 10/13/2019 [facility] Saline Flush 0.9% Notes: (Same as: BD Posiflush) No Longer Active 10/13/2019 [facility] Calcium 500+D 1, PO, Daily, 0 Refill(s) Active 10/13/2019 [facility] tizanidine 2 mg oral capsule 2 mg = 1 cap, PO, Q8H, PRN for muscle spasms Active 10/10/2019 [facility] Melatonin 10 mg oral capsule 1 0 mg = 1 cap, PO, Bedtime, 0 Refill(s) Active 10/10/2019 [facility] meloxicam 7.5 mg oral tablet 7 .5 mg = 1 tab, PO, Daily, 0 Refill(s) Active 10/10/2019 [facility] gabapentin 200 mg, PO, TID, 0 Refill(s) Active 10/10/2019 [facility] Hydrochlorothiazide 12.5 MG / Losartan P otassium 100 MG Oral Tablet 1 tab, PO, Daily, 0 Refill(s) Active 10/10/2019 [facility] Amlodipine 5 MG Oral Tablet [Norvasc] 5 mg = 1 tab, PO, Daily, 0 Refill(s) Active 10/10/2019 [facility] Hydroxyzine Hydrochloride 10 MG Oral Tablet 20 mg = 2 tab, PO, Bedtime, PRN Insomnia, 0 Refill(s) Active 10/10/2019 [facility] omeprazole 20 mg oral delayed release capsule 20 mg = 1 cap, PO, Daily, 0 Refill(s) Active 10/10/2019 [facility] Allergies, Adverse Reactions, Alerts Substance Category Reaction Severity Reaction type Status Date Reported Comments Source sulfa drugs Assertion swelling, hives Drug allergy Active [facility] NKFA Assertion Propensity to adverse reacti ons to substance Active [facility] codeine Assertion Drug allergy Active [facility] Immunizations Immunization Date Given Site Status Last Updated Comments Source pneumococcal 23-valent vaccine 06/05/2007 Right gluteus medius completed [facility], DENNIS Torre, DENNIS Agency Results No Data Provided for This Section Pathology Reports No Data Provided for This Section Diagnostic Reports Report Value Date Source Spine cervical wo contrast MRI Spine cervical wo contrast MRI 09/02/2019 14:57 LEVELER CLINICAL: - M54.12 Radiculopathy, cervical region TECHNIQUE: Multiplanar multisequence imaging of the cervical spine was performed without administration of intravenous gadolinium. COMPARISON: No prior exam. FINDINGS: Multilevel disc desiccation is seen. The cervical cord signal is normal. C1-C2: No spinal stenosis or neural foraminal stenosis. C2-C3: Mild bilateral facet arthrosis. Mild left foraminal stenosis. No central canal stenosis. C3-C4: Severe left facet arthrosis with 1.2 mm anterolisthesis. No central canal stenosis. Severe left foraminal stenosis. C4-C5: Moderate to severe bilateral facet arthrosis with mild bilateral foraminal stenosis. 1.2 mm left paracentral osteophytes. No central canal stenosis. C5-C6: 2 mm right asymmetric disc bulge versus broad-based right paracentral disc protrusion. No central canal stenosis. Moderate bilateral facet arthrosis with mild bilateral foraminal stenosis. C6-C7: Severe disc narrowing with 2 mm broad-based central disc protrusion with mild central canal stenosis. No mass effect on spinal cord. Severe left facet arthrosis with right foraminal osteophytes, with moderate right foraminal stenosis and mild left foraminal stenosis. C7-T1: Mild bilateral facet arthrosis without central canal or foraminal stenosis. 1.2 mm left paracentral broad-based disc protrusion. Left thyroid lobe 1.2 cm lesion is likely benign and no additional follow-up is recommended based on current guidelines. IMPRESSION: 1. Multilevel cervical spine degenerativ e changes. 2. C5-C6, C6-C7, C7-T1 shallow disc prot rusions with mild central canal stenosis. C6-C7 and C7-T1 levels. 3. C3-C4 grade 1 degenerative anterolist hesis. 4. Several levels of [id number] fo raminal stenosis. 09/02/2019 DENNIS Torre Chest 2 views DX STUDY: Chest, 2 views. COMPARISON: None HISTORY: - R05 Cough. FINDINGS: The lungs are clear. No consolidation is seen. No pleural effusion is seen. No pneumothorax is seen. The heart is normal in size. Mild degenerative changes of spine are seen. Osteopenia is seen. Moderate to large hiatal hernia is seen. IMPRESSION: No acute cardiopulmonary abnormality. Moderate to large hiatal hernia. 09/02/2019 DENNIS Torre Spine thoracic 2 views DX EXAM : Spine cervical 2 or 3 view DX, Spine thoracic 2 views DX HISTORY: - M81.0 Age-related osteoporosis without current pathological fracture; M54.12 Radiculopathy, cervical region COMPARISON: None AP, lateral and odontoid views of the cervical spine AP and lateral views of the thoracic spine FINDINGS: Osteopenia. Cervical spine: AP alignment is normal. There is moderate to severe disc space narrowing from C4 through T2. Prevertebral soft tissues are normal. There is uncovertebral hypertrophic change and narrowing throughout the cervical spine. Thoracic spine: There is diffuse mild to moderate disc space narrowing. No vertebral body height loss. IMPRESSION: Degenerative changes of the spine as above. 09/02/2019 DENNIS Torre Spine cervical 2 or 3 view DX EXAM: Spine cervical 2 or 3 view DX, Spine thoracic 2 views DX HISTORY: - M81.0 Age-related osteoporosis without current pathological fracture; M54.12 Radiculopathy, cervical region COMPARISON: None AP, lateral and odontoid views of the cervical spine AP and lateral views of the thoracic spine FINDINGS: Osteopenia. Cervical spine: AP alignment is normal. There is moderate to severe disc space narrowing from C4 through T2. Prevertebral soft tissues are normal. There is uncovertebral hypertrophic change and narrowing throughout the cervical spine. Thoracic spine: There is diffuse mild to moderate disc space narrowing. No vertebral body height loss. IMPRESSION: Degenerative changes of the spine as above. 09/02/2019 DENNIS Torre Hand 3 views Bilateral DX EXAM : XR BILATERAL HAND 3 VIEWS DATE: 05/14/2018 11:40 AM CDT INDICATION: - R76.8 Other specified abnormal immunological findings in serum COMPARISON: 08/08/2015 3 view bilateral hand. TECHNIQUE: PA, lateral and oblique radiographs of the bilateral hands. FINDINGS: Minimal increase in bone demineralization relative to prior imaging. No acute fracture or malalignment is identified. Severe carpometacarpal joint space narrowing seen most prominently in the first CMC joint bilateral hands. Continued mild interphalangeal joint space narrowing with underlying subchondral sclerosis and bone cysts more severe in distal interphalangeal joints than proximal. No soft tissue abnormality is identified. IMPRESSION: Minimally increased osteopenia with unchanged degenerative joint disease relative to prior imaging. 05/14/2018 [facility] Knee 3 Views Bilateral DX EXAM : XR BILATERAL KNEE 3 VIEWS DATE: 08/08/2015 at 1542 hours INDICATION: M06.4 Inflammatory polyarthropathy COMPARISON: None available TECHNIQUE: Standing AP, sunrise and lateral radiographs of both knees FINDINGS: Bilateral medial compartment unicompartmental arthroplasties are present, without displacement of the polyethylene spacer on either side. Slight rotation of the right femoral component is present, without perihardware lucency. Lateral compartment osteoarthrosis is present, with calcified bodies most evident on the right. Subchondral cystic change is present at the dorsal aspect of the patella bilaterally, left greater than right. Osteopenia is present. IMPRESSION: 1. Bilateral medial unicompartmental art hroplasties without spacer displacement. Slight rotation of the right femoral component may be positional. 2. Osteophyte formation in the lateral a nd patellofemoral compartments. Subchondral cystic change most evident at the left patella. 08/08/2015 [facility] Foot 3 views bilateral DX EXAM : XR BILATERAL FOOT 3 VIEWS DATE: 08/08/2015 at 1542 hours INDICATION: M06.4 Inflammatory polyarthropathy COMPARISON: None available TECHNIQUE: AP, lateral and oblique radiographs of the bilateral feet FINDINGS: No acute fracture is identified. Lateral subluxation of the third metatarsophalangeal joint bilaterally is present, with mild lateral subluxation at the first and second MTP joints on the left. Osteophyte formation a nonspecific cystic change is most evident at the tarsometatarsal joints bilaterally, most evident at the third TMT joints. No soft tissue abnormality is identified. IMPRESSION: Subluxation at the metatarsophalangeal joints, and osteophyte formation is most evident at the tarsometatarsal joints. Nonspecific cystic change at the third tarsometatarsal joints bilaterally. 08/08/2015 [facility] Hand 3 views Bilateral DX EXAM : XR BILATERAL HAND 3 VIEWS DATE: 08/08/2015 at 1541 hours INDICATION: M06.4 Inflammatory polyarthropathy COMPARISON: None available TECHNIQUE: PA, lateral, and oblique radiographs of both hands FINDINGS: No fracture, dislocation or other acute bony abnormality is identified. Severe carpometacarpal joint space narrowing is present, with subchondral sclerosis, small fragmented intra-articular bodies. Milder interphalangeal joint narrowing is present, right slightly greater than left. Tiny, nonspecific cysts are present at the DIP joint of the right long finger, without definite erosions. No soft tissue abnormality is identified. IMPRESSION: Multifocal osteoarthrosis, most evident at the carpometacarpal joint of the thumb bilaterally. No definite erosions. 08/08/2015 [facility] Consultation Notes No Data Provided for This Section Discharge Summaries No Data Provided for This Section History and Physicals No Data Provided for This Section Vital Signs Vital Sign Value Date Comments Source Respitory Rate 16 10/13/2019 [facility] Systolic (mm Hg) 149 10/13/2019 [facility] Diastolic (mm Hg) 75 10/13/2019 [facility] Respitory Rate 16 10/13/2019 [facility] Systolic (mm Hg) 134 10/13/2019 [facility] Diastolic (mm Hg) 73 10/13/2019 [facility] Respitory Rate 17 10/13/2019 [facility] Systolic (mm Hg) 138 10/13/2019 [facility] Diastolic (mm Hg) 73 10/13/2019 [facility] Height 160.02 cm 10/10/2019 [facility] Weight 60.909 10/10/2019 [facility] BMI Calculated 23.79 10/10/2019 [facility] Encounters Location Location Details Encounter Type Encounter Number Reason For Visit Attending Provider ADM Date DC Date Status Source [facility] Outpatient Imaging - [facility] [id number] 00 Angelina Lares 08/08/2015 08/09/2015 [facility] Outpatient Imaging - [place] [facility] [id number] 01 Daxa Brown 11/20/2017 11/20/[address] [place] [facility] Outpatient Imaging - [facility] [id number] 02 Briana Casarez 05/14/2018 05/15/2018 [facility] Outpatient Imaging - [place] [facility] [id number] 03 Briana Casarez 09/02/2019 09/03/2019 [facility] [place] [facility] [id number] Cecil Alves 10/13/2019 10/14/2019 [facility] Procedures Procedure Code Date Perfomer Comments Source Cholecystectomy 49421698 [facility] Partial hysterectomy 641025229 [facility] Tonsillectomy 111469192 [facility] Total knee replacement<sup>1</sup> [id number] bilateral [facility] Assessment and Plan Assessment and Plan Date Source Extracted from:Title: Clinical Document Author: Cecil Alves MD Date: 10/13/19 History and Physical Update: 1. Required on all H&P's completed prior admission, within last 30 days. 2. Update must be completed post admissi on, within 24 hrs or prior to procedure, whichever comes first. Based on examination of the patient: No change in patient current condition 10/14/2019 [facility] Plan of Care No Data Provided for This Section Social History Social History Date Source Social History TypeResponse Alcohol Never Substance Abuse Use: None. Smoking Status Never smoker; Exposure to Tobacco Smoke None; Cigarette Smoking Last 365 Days No; Reg Smoking Cessation Counseling No entered on: 10/13/19 10/10/2019 [facility] Social History TypeResponse 09/03/2019 DUANE Torre No data available for this section 05/15/2018 DUANE COLLINS Agency Family History No Data Provided for This Section Advance Directives No Data Provided for This Section Functional Status No Data Provided for This Section
--- OUTSIDE RECORDS SUMMARY | 2020-02-02 11:20 | XMS REPORT | Summary of Care ---
Author Author [facility] Outpatient Imaging - [facility] Organization [facility] Outpatient Imaging - [facility] Address Unknown Phone Unavailable Care Team Providers Care Fighting Vehicle Infantryman Name Role Phone Daxa Brown PCP Encounter HQ Urielr_maksim(FIN) [id number] Date(s): 09/02/19 - 09/02/19 [facility] Outpatient Imaging - [employer] [address] [place], [place] [address] [phone] Discharge Disposition: Home or Self Care Attending [...] data available for this section Social History Social History Type Response Assessment and Plan No data available for this section
--- OUTSIDE RECORDS SUMMARY | 2020-02-02 11:20 | XMS REPORT | Summary of Care ---
Author Author [facility] Outpatient Imaging - [facility] Organization [facility] Outpatient Imaging - [facility] Address Unknown Phone Unavailable Encounter HQ Spencer_maksim(FIN) [id number] Date(s): 11/20/17 - 11/20/17 [facility] Outpatient Imaging - [address] [phone] Attending Physician: Daxa Brown MD Vital Signs No data available for [...]
--- OUTSIDE RECORDS SUMMARY | 2020-02-02 11:21 | XMS REPORT | Summary of Care ---
Author Author [facility] Outpatient Imaging - [facility] Organization [facility] Outpatient Imaging - [facility] Address Unknown Phone Unavailable Encounter HQ [email or web address](FIN) [id number] Date(s): 08/08/15 - 08/08/15 [facility] Outpatient Imaging - [place] [id number] [place] [address], [address] [place], [place] [id number] [place] [address] [phone] Discharge Disposition: Home Attending Physician: Angelina Lares MD Vital Signs No data available for this section Problem List No data available for this section Allergies, Adverse Reactions, Alerts Substance Reaction Severity Status NKFA Active sulfa drugs swelling, hives Active Medications No data available for this section Results No data available for this section Immunizations Vaccine Date Refusal Reason pneumococcal 23-valent vaccine 06/05/07 Procedures No data available for this section Social History No data available for this section Assessment and Plan No data available for this section
--- OUTSIDE RECORDS SUMMARY | 2020-02-02 11:21 | XMS REPORT | Summary of Care ---
Author Author [facility] Organization [facility] Address Unknown Phone Unavailable Care Team Providers Care Spray Foam Installer Name Role Phone Daxa Brown PCP Encounter HQ Raul([facility]) [phone] Date(s): 10/13/19 - 10/13/19 [facility] [address] [place] [phone] Discharge Disposition: Home or Self Care Attending Physician: Cecil Alves MD Referring Physician: Cecil Alves MD Vital Signs 1 2 3 Most recent to oldest [Reference Range]: 160.02 cm (10/10/19 8:31 AM) Height 149/75 mmHg *HI* (10/13/19 9:20 AM) 134/73 mmHg (10/13/19 9:05 AM) 138/73 mmHg (10/13/19 8:50 AM) Blood Pressure [90-140/60-90 mmHg] 16 BRMIN (10/13/19 9:20 AM) 16 BRMIN (10/13/19 9:05 AM) 17 BRMIN (10/13/19 8:50 AM) Respiratory Rate [14-20 BRMIN] 60.909 kg (10/10/19 8:31 AM) Weight 23.79 m2 (10/10/19 8:31 AM) Body Mass Index Problem List Condition Effective Dates Status Health Status Informan t Anxiety(Confirmed) Resolved Colitis(Confirmed) Resolved Depression(Confirmed Resolved ) Diverticulitis(Confi Resolved rmed) GERD Active (gastroesophageal reflux disease)(Confirmed) Hypertension(Confirm Active ed) Osteoporosis(Confirm Active ed) Sjogren's Active syndrome(Confirmed) Allergies, Adverse Reactions, Alerts Substance Reaction Severity Status sulfa drugs swelling, hives Active codeine Active NKFA Active Medications acetaminophen-hydrocodone 325 mg-10 mg oral tablet 1 tab, Route: PO, Drug Form: TAB, Dosing Weight 60.909, kg, Q4H, PRN Pain Score 4-6, Start date: 10/13/19 8:51:00 [employer], Duration: 30 day, Stop date: 11/12/19 8:5 0:00 [employer], 0 Notes: Do not exceed 4gm/day of acetaminophen. (Same as: [place] 325/10) Start Date: 10/13/19 Stop Date: 10/14/19 Status: Discontinued Calcium 500+D 1, PO, Daily, 0 Refill(s) Start Date: 10/13/19 Status: Ordered gabapentin 200 mg, PO, TID, 0 Refill(s) Start Date: 10/10/19 Status: Ordered hydrochlorothiazide-losartan 12.5 mg-100 mg oral tablet 1 tab, PO, Daily, 0 Refill(s) Start Date: 10/10/19 Status: Ordered hydromorphone 0.5 mg, 0.25 mL, Route: IVP, Drug form: INJ, PRN, Dosing Weight 60.909, kg, PRN Pain Score 4-6, Start date: 10/13/19 8:51:00 [employer], Duration: 30 day, Stop date: 0 11/12/19 8:50:00 [employer], 0 Notes: Same as Dilaudid Start Date: 10/13/19 Stop Date: 10/14/19 Status: Discontinued hydromorphone 1 mg, 0.5 mL, Route: IVP, Drug form: INJ, PRN, Dosing Weight 60.909, kg, PRN Deshawn n Score 7-10, Start date: 10/13/19 8:51:00 [employer], Duration: 30 day, Stop date: 03/26 8:50:00 [employer], 0 Notes: Same as Dilaudid Start Date: 10/13/19 Stop Date: 10/14/19 Status: Discontinued hydrOXYzine hydrochloride 10 mg oral tablet 20 mg = 2 tab, PO, Bedtime, PRN Insomnia, 0 Refill(s) Start Date: 10/10/19 Status: Ordered ibuprofen 800 mg, 2 tab, Route: PO, Drug form: TAB, Q8H, Dosing Weight 60.909, kg, Start d ate: 10/13/19 16:00:00 [employer], Duration: 30 day, Stop date: 11/12/19 8:00:00 [employer], 0 Notes: (Same as: Sharonarin)"Do Not Crush" Give with food. Start Date: 10/13/19 Stop Date: 10/14/19 Status: Discontinued Lactated Ringers IV 1,000 mL 1,000 mL, Rate: 125 ml/hr, Infuse over: 8 hr, Route: IV, Dosing Weight 60.909 kg , Total Volume: 1,000, Start date: 10/13/19 7:42:00 [employer], Duration: 30 day, Stop date: 11/12/19 7:41:00 [employer], 1.66, m2, 0 Start Date: 10/13/19 Stop Date: 10/13/19 Status: Discontinued Lactated Ringers IV 1,000 mL 1,000 mL, Rate: 125 ml/hr, Infuse over: 8 hr, Route: IV, Dosing Weight 60.909 kg , Total Volume: 1,000, Start date: 10/13/19 8:51:00 [employer], Duration: 30 day, Stop date: 11/12/19 8:50:00 [employer], 1.66, m2, 0 Start Date: 10/13/19 Stop Date: 10/14/19 Status: Discontinued Melatonin 10 mg oral capsule 10 mg = 1 cap, PO, Bedtime, 0 Refill(s) Start Date: 10/10/19 Status: Ordered meloxicam 7.5 mg oral tablet 7.5 mg = 1 tab, PO, Daily, 0 Refill(s) Start Date: 10/10/19 Status: Ordered Norvasc 5 mg oral tablet 5 mg = 1 tab, PO, Daily, 0 Refill(s) Start Date: 10/10/19 Status: Ordered omeprazole 20 mg oral delayed release capsule 20 mg = 1 cap, PO, Daily, 0 Refill(s) Start Date: 10/10/19 Status: Ordered ondansetron 4 mg, 2 mL, Route: IVP, Drug form: INJ, ONCE, Dosing Weight 60.909, kg, PRN Naus ea & Vomiting, Start date: 10/13/19 8:51:00 [employer], 0 Notes: (Same as: Jace) MEDICATION WASTE Product Size: 4 mgProduct Was ganga: ___ mg Start Date: 10/13/19 Stop Date: 10/14/19 Status: Discontinued Saline Flush 0.9% 10 ml, Route: IVP, Drug Form: INJ, Dosing Weight 60.909, kg, PRN, PRN Line Flush , Start date: 10/13/19 7:42:00 [employer], Duration: 30 day, Stop date: 11/12/19 7:41:0 0 [employer], 0 Notes: (Same as: BD Posiflush) Start Date: 10/13/19 Stop Date: 10/14/19 Status: Discontinued Sodium Chloride 0.9% IV 1,000 mL 1,000 mL, Rate: 75 ml/hr, Infuse over: 13.3 hr, Route: IV, Dosing Weight 60.909 kg, Total Volume: 1,000, Start date: 10/13/19 8:51:00 [employer], Duration: 30 day, Sto p date: 11/12/19 8:50:00 [employer], 1.66, m2, 0 Start Date: 10/13/19 Stop Date: 10/14/19 Status: Discontinued tizanidine 2 mg oral capsule 2 mg = 1 cap, PO, Q8H, PRN for muscle spasms Start Date: 10/10/19 Status: Ordered Results No data available for this section Immunizations Given and Recorded Vaccine Date Status Refusal Reason pneumococcal 23-valent vaccine 06/05/07 Given Procedures Procedure Date Related Diagnosis Body Site Status Cholecystectomy Completed Partial hysterectomy Completed Tonsillectomy Completed Total knee replacement1 Completed 1bilateral Social History Social History Type Response Alcohol Never Substance Abuse Use: None. Smoking Status Never smoker; Exposure to T obacco Smoke None; Cigarette Smoking Last 365 Days No; Reg Smoking Cessation Counseli ng No entered on: 10/13/19 Assessment and Plan Extracted from: Title: Clinical Document Author: Cecil Alves MD Sagar e: 10/13/19 History and Physical Update: 1. Required on all H&P's completed prior admission, within last 30 days. 2. Update must be completed post admissi on, within 24 hrs or prior to procedure, whichever comes first. Based on examination of the patient: No change in patient current condition
--- OUTSIDE RECORDS SUMMARY | 2020-02-02 11:21 | XMS REPORT ---
Author Author [facility] t Organization [facility] Address [address] [place] [address] Phone Unavailable Care Team Providers Care Welt Wheeler Name Role Phone Justien BROWN PCP CHIDI JACKSON Attphys Unavailable Carlo Alves Attphys Humaira Casarez Attphys Sayra Brown Attphys Kay Lares Attphys CHIDI JACKSON Admphys Unavailable Payers Payer Name Policy Type Policy Number Effective Date Expiration Date [id number] 2019 00:00:00 [facility] Medicare A & B [id number] 2007 00:00:00 [facility] Problems Condition Name Condition Details Condition Category Status Onset Date Resolution Date Last Treatment Date Treating Clinician Comments Source SPONDYLOSIS, CERVICAL DDD SPON DYLOSIS, CERVICAL DDD Active 10/05/2019 [facility] Diagnosis Active 2019-10-05 00:00: 00 2019-10-19 15:23:00 [facility] R42 - DIZZINESS AND GIDDINESS R42 - DIZZINESS AND GIDDINESS Active 11/11/2017 [facility] Diagnosis Active 2017-11-11 00:01:00 2018-02-23 21:11:00 [facility] Atrial fibrillation A-fib Problem Active 2015-09-08 00:00:00 [facility] 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 Active 08/08/2015 [facility] Diagnosis Active 2015-08-08 00:01:00 2015-08-08 15:50:00 M [facility] [place] GENERALIZED ABDOMINAL PAIN Problem Active [facility] Sicca syndrome, unspecified Si cca syndrome, unspecified 12/01/2018 [facility] Problem 2018-12-01 15:13:21 [facility] Vitamin D deficiency, unspecified Vitamin D deficiency, unspecified 12/01/2018 [facility] Problem 15:13:21 [facility] Anxiety (finding) Anxi ety (finding) Resolved Problem 10/16/2019 [facility] Problem Resolved 2019-10-16 00:21:07 [facility] Colitis (disorder) Coli tis (disorder) Resolved Problem 10/16/2019 [facility] Problem Resolved 2019-10-16 00:21:07 [facility] Depression - motion (qualifier value) Depression - motion (qualifier value) Resolved Problem 10/16/2019 [facility] Problem Resolved 2019-10-16 00:21:07 [facility] Diverticulitis (disorder) Dive rticulitis (disorder) Resolved Problem 10/16/2019 [facility] Problem Resolved 2019-10-16 00:21:07 [facility] Gastroesophageal reflux disease (disorder) Gastroesophageal reflux disease (disorder) Active Problem 10/16/2019 [facility] Problem Active 2019-10-16 00:21:07 [facility] Hypertensive disorder, systemic arterial (disorder) Hypertensive disorder, systemic arterial (disorder) Active Problem 10/16/2019 [facility] Problem Active 2019-10-16 00:21:07 [facility] Osteoporosis (disorder) Oste oporosis (disorder) Active Problem 10/16/2019 [facility] Problem Active 2019-10-16 0 0:21:07 [facility] Sjgren's syndrome (disorder) Sjgren's syndrome (disorder) Active Problem 10/16/2019 [facility] Problem Active 2019-10-16 00:21:07 [facility] Other specified abnormal immunological findings in ser um Other specified abnormal immunological findings in serum 05/20/2018 12/01/2018 [facility] Problem 2018-05-20 04:51:55 2018-12-01 15:13:21 2018-12-01 15:13:21 [facility] Allergies, Adverse Reactions, Alerts Allergy Name Allergy Type Status Severity Reaction(s) Onset Date Inacti ve Date Treating Clinician Comments Source Sulfa (Sulfonamide Antibiotics) Allergy to Substance Active 2019-11-28 00:00:00 [facility] Morphine Allergy to Substance Active 2019-11-28 00:00:00 [facility] Codeine Propensity to adverse reactions Active 2019-11-28 0 0:00:00 [facility] TRAZADONE Allergy to Substance Active 2019-11-28 00:00:00 [facility] sulfa drugs sulfa drugs Active [facility] NKFA NKFA Active [facility] codeine codeine Active [facility] Social History Social Habit Start Date Stop Date Quantity Comments Source Social History 2018-05-15 04:59:00 2018-05-15 04:59:00 [facility] Medications Ordered Medication Name Filled Medication Name Start Date Stop Da te Current Medication? Ordering Clinician Indication Dosage Frequency Signature (SIG) Comments Components Source Ibuprofen 2019-10-13 22:00:00 No Notes: (Same as: Motrin) "Do Not Crush" Give with food. [facility] Sodium Chloride 0.9% IV 1,000 mL 2019-10-13 14:51:00 No 1,000 mL, Rate: 75 ml/hr, Infuse over: 13.3 hr, Route: IV, Dosing Weight 60.909 kg, Total Volume: 1,000, Start date: 10/13/19 8:51:00 SPACE CONTROLLER, Duration: 30 day, Stop date: 11/12/19 8:50:00 SPACE CONTROLLER, 1.66, m2, 0 [facility] Acetaminophen 325 MG / Hydrocodone Bitartrate 10 MG Oral Tab let 2019-10-13 14:51:00 No Notes: Do not exceed 4gm/day of acetaminophen. (Same as: Pierson 325/10) [facility] Hydromorphone 2019-10-13 14:51:00 No Notes: Same as Dilaudid [facility] Ondansetron 2019-10-13 14:51:00 No Notes: (Same as: Jace) MEDICATION WASTE Product Size: 4 mg Product Wasted: ___ mg [facility] Lactated Ringers IV 1,000 mL 2019-10-13 14:51:00 No 1,000 mL, Rate: 125 ml/hr, Infuse over: 8 hr, Route: IV, Dosing Weight 60.909 kg, Total Volume: 1,000, Start date: 10/13/19 8:51:00 SPACE CONTROLLER, Duration: 30 day, Stop date: 11/12/19 8:50:00 SPACE CONTROLLER, 1.66, m2, 0 [facility] Lactated Ringers IV 1,000 mL 2019-10-13 13:42:00 No 1,000 mL, Rate: 125 ml/hr, Infuse over: 8 hr, Route: IV, Dosing Weight 60.909 kg, Total Volume: 1,000, Start date: 10/13/19 7:42:00 SPACE CONTROLLER, Duration: 30 day, Stop date: 11/12/19 7:41:00 SPACE CONTROLLER, 1.66, m2, 0 [facility] Saline Flush 0.9% 2019-10-13 13:42:00 No Notes: (Same as: BD Posiflush) [facility] Calcium 500+D 2019-10-13 12:58:00 Yes 1, PO, Daily, 0 Refill(s) [facility] tizanidine 2 mg oral capsule 2019-10-10 14:47:00 Yes 2 mg = 1 cap, PO, Q8H, PRN for muscle spasms [facility] Melatonin 10 mg oral capsule 2019-10-10 14:47:00 Yes 10 mg = 1 cap, PO, Bedtime, 0 Refill(s) [facility] meloxicam 7.5 mg oral tablet 2019-10-10 14:47:00 Yes 7.5 mg = 1 tab, PO, Daily, 0 Refill(s) [facility] gabapentin 2019-10-10 14:46:00 Yes 200 mg, P O, TID, 0 Refill(s) [facility] Hydrochlorothiazide 12.5 MG / Losartan Potassium 100 MG Oral Tablet 2019-10-10 14:45:00 Yes 1 tab, PO, Daily, 0 Refill(s) [facility] Amlodipine 5 MG Oral Tablet [Norvasc] 2019-10-10 14:45:00 Y es 5 mg = 1 tab, PO, Daily, 0 Refill(s) [facility] Hydroxyzine Hydrochloride 10 MG Oral Tablet 2019-10-10 14:45:00 Yes 20 mg = 2 tab, PO, Bedtime, PRN Insomnia, 0 Refill(s) [facility] omeprazole 20 mg oral delayed release capsule 2019-10-10 14:39:0 0 Yes 20 mg = 1 cap, PO, Daily, 0 Refill(s) [facility] Amiodarone Hcl (Cordarone) 200 Mg Tablet, 400 Mg Oral Amiodarone Hcl (Cordarone) 200 Mg Tablet, 400 Mg Oral 2015-09-13 00:00:00 2019-11-29 00:00:00 No Avni Wiley Md 400 Daily [facility] Metoprolol Succinate 25 Mg Tab.er.24h, 25 Mg Oral Meto prolol Succinate 25 Mg Tab.er.24h, 25 Mg Oral 2015-09-13 00:00:00 2019-11-29 00:00:00 No H juanita Wiley Md 25 Twice A Day [facility] Amlodipine Besylate 5 Mg Tablet Amlodipine Besylate 5 Mg Tablet Yes 5 Twice A Day [facility] Gabapentin 100 Mg Capsule Gabapentin 100 Mg Capsule Yes 300 Every 12 Hours [facility] Hydrochlorothiazide 12.5 Mg Tablet Hydrochlorothiazide 12.5 Mg Tablet Yes 12.5 Daily [facility] Losartan Potassium 100 Mg Tablet Losartan Potassium 100 Mg Tablet Yes 100 Daily [facility] Omeprazole 40 Mg Capsule. Omeprazole 40 Mg Capsule. Yes 40 Daily [facility] Omeprazole (Prilosec) 20 Mg Capsule., 20 Mg Oral Ome prazole (Prilosec) 20 Mg Capsule., 20 Mg Oral 2019-11-29 00:00:00 No 20 D aily [facility] Pilocarpine Hcl 5 Mg Tablet, 5 Mg Oral Pilocarpine Hcl 5 Mg Tabl et, 5 Mg Oral 2019-11-29 00:00:00 No 5 Three Times A Day [facility] Losartan/Hydrochlorothiazide (Losartan-H ctz 50-12.5 Mg Tab) 1 Each Tablet, 50 Mg Oral Losartan/Hydrochlorothiazide (Losartan-H ctz 50-12.5 Mg Tab) 1 Each Tablet, 50 Mg Oral 2015-09-13 00:00:00 No 50 Daily [facility] Losartan/Hydrochlorothiazide (Hyzaar 50-12.5 Tablet) 1 Each Tablet, 1 Each Oral Losartan/Hydrochlorothiazide (Hyzaar 50-12.5 Tablet) 1 Each Tablet, 1 Each Oral 2015-09-09 00:00:00 No 1 Daily [facility] Vital Signs Vital Name Observation Time Observation Value Comments Source Respitory Rate 2019-10-13 15:20:00 [facility] Systolic (mm Hg) 2019-10-13 15:20:00 [facility] Diastolic (mm Hg) 2019-10-13 15:20:00 [facility] Respitory Rate 2019-10-13 15:05:00 [facility] Systolic (mm Hg) 2019-10-13 15:05:00 [facility] Diastolic (mm Hg) 2019-10-13 15:05:00 [facility] Respitory Rate 2019-10-13 14:50:00 [facility] Systolic (mm Hg) 2019-10-13 14:50:00 [facility] Diastolic (mm Hg) 2019-10-13 14:50:00 [facility] Height 2019-10-10 14:31:00 160.02 cm [facility] Weight 2019-10-10 14:31:00 [facility] BMI Calculated 2019-10-10 14:31:00 [facility] Procedures Procedure Date / Time Performed Performing Clinician Sour e Computed tomography of abdomen and pelvis with contrast 2019 00:00:00 CHIDI JACKSON [facility] Computed tomography of abdomen and pelvis with contrast 2019 00:00:00 GRECIA GARCIA [facility] Cholecystectomy [facility] Partial hysterectomy [facility] Tonsillectomy [facility] Total knee replacement<sup>1</sup> [facility] Encounters Start Date/Time End Date/Time Encounter Type Admission Type Attendi [facility] Emergency Department Facility Care Department Encounter ID Source 2019-11-29 02:21:00 2019-12-08 18:12:00 Discharged Inpatient 1 CHIDI JACKSON [facility] [id number] [facility] 2019-10-13 12:11:00 2019-10-14 05:59:00 Day Surgery [facility] [id number] [facility] 2019-10-13 06:11:00 2019-10-13 23:59:00 Outpatient Cecil Alves [facility] [id number] 2019-10-13 06:11:00 2019-10-13 06:11:00 [facility] 2019-09-02 19:54:00 2019-09-03 05:59:00 [facility] [id number] [facility] 2019-09-02 13:54:00 2019-09-02 23:59:00 Outpatient Briana Casarez [facility] [id number] 2018-05-14 16:35:00 2018-05-15 04:59:00 [facility] [id number] [facility] 2018-05-14 11:35:00 2018-05-14 23:59:00 Outpatient Briana Casarez [facility] [id number] 2017-11-20 15:30:00 2017-11-20 15:30:00 [facility] [place] [id number] [facility] 2017-11-20 10:30:00 2017-11-20 10:30:00 Outpatient Daxa Brown [facility] [id number] 2015-08-08 21:39:00 2015-08-09 05:59:00 Outpt Di[facility] [place] [id number] [facility] 2015-08-08 15:39:00 2015-08-08 23:59:00 Outpatient Angelina Lares [facility] [id number] Results Test Description Test Time Test Comments Results Result Comments Source CT ABDOMEN/PELVIS W 2019-12-05 12:18:00 [facility] [address] [place], [place] [address] Patient Name: CHRISTIANO BAUTISTA MR #: [id number] : 1940 Age/Sex: 79/F Req #: [id number] Adm Physician: CHIDI JACKSON MD Ordered by: CHIDI JACKSON MD Report #: [id number] Location: MED/SURG Room/Bed: [facility] Procedure: [id number] CT/CT ABDOMEN/PELVIS W Exam Date: 12/05/19 Exam Time: 1020 REPORT STATUS: Signed EXAM: CT Abdomen and Pelvis WITH intravenous contrast INDICATION: Diverticular abscess COMPARISON: CT abdomen and pelvis of 11/29/2019 TECHNIQUE: Abdomen and pelvis were scanned utilizing a multidetector helical scanner from the lung base to the pubic symphysis after administration of IV contrast. Coronal and sagittal reformations were obtained. Routine protocol was performed. Scan was performed during portal venous phase. IV CONTRAST: 100mL of Isovue 370 ORAL CONTRAST: None RADIATION DOSE: Total DLP: 263 mGy*cm Dose modulation, iterative reconstruction, and/or weight based adjustment of the mA/kV was utilized to reduce the radiation dose to as low as reasonably achievable. FINDINGS: LOWER THORAX: Normal. HEPATOBILIARY: Diffuse hepatic steatosis. No focal liver lesion. Unchanged right hepatic cyst. No biliary ductal dilation. Status post cholecystectomy. SPLEEN: No splenomegaly. PANCREAS: No focal masses or ductal dilatation. ADRENALS: No adrenal nodules. KIDNEYS/URETERS: No hydronephrosis or renal calculi. Unchanged right renal cyst. PELVIC ORGANS/BLADDER: Hysterectomy. PERITONEUM / RETROPERITONEUM: No free air or fluid. LYMPH NODES: No lymphadenopathy. VESSELS: Moderate atherosclerotic calcifications of the nonaneurysmal abdominal aorta and major branches. GI TRACT: Diverticulosis. Interval resolution of intramural diverticular abscess. Reduc tion in wall thickening and fat stranding associated with the previously involved segment of sigmoid colon consistent with resolving diverticulitis. Unchanged hiatal hernia. BONES AND SOFT TISSUES: No acute osseous injury. IMPRESSION: Resolving diverticulitis. Interval resolution of intramural sigmoid colon diverticular abscess. Signed by: Vivi Rocha MD on 12/05/2019 12:21 PM Dictated By: VIVI ROCHA MD 1221 Transcribed By: AXEL on 12/05/19 1221 COPY TO: CHIDI JACKSON MD Sodium Level 2019-12-05 06:12:00 Test Item Sodium Level (test code = 2951-2) 139 136-145 [facility] Vwdvs9669-65-96 06:12:00* Test Item Value Reference Range Interpretation Comments Potassium Level (test code = 2823-3) 3.6 3.5-5.1 [facility] HospitalChloride Viowx3636-85-25 06:12:00* Test Item Value Reference Range Interpretation Comments Chloride Level (test code = 2075-0) 106 98-107 [facility] HospitalCarbon Dioxide Ppzfh2602-07-89 06:12:00* Test Item Value Reference Range Interpretation Comments Carbon Dioxide Level (test code = 2028-9) 28 22-29 [facility] HospitalAnion Cnu7217-15-83 06:12:00* Test Item Value Reference Range Interpretation Comments Anion Gap (test code = 41089-5) 8.6 8-16 [facility]Blood Urea Zpghacef7377-82-82 06:12:00* Test Item Value Reference Range Interpretation Comments Blood Urea Nitrogen (test code = 3094-0) 6 7-26 L [facility] HospitalCreatinine2020-03-30 06:12:00* Test Item Value Reference Range Interpretation Comments Creatinine (test code = 2160-0) 0.76 0.57-1.11 [facility] HospitalBUN/Creatinine Pevih3475-48-78 06:12:00* Test Item Value Reference Range Interpretation Comments BUN/Creatinine Ratio (test code = 3097-3) 8 6-25 [facility] HospitalEstimat Glomerular Filtration Rate 2019-12-05 06:12:00* Test Item Value Reference Range Interpretation Comments Estimat Glomerular Filtration Rate (test code = 057616301) > 60 >60 Ranges were taken from the National Kidney Disease Education Program and the [facility] Kidney Foundation literature.Reference ranges:60 or greater: Zdvcep61-67 ( for 3 consecutive months): Chronic kidney disease 15 or less: Kidney failureMemorial Hermann Southeast HospitalGlucose Yujjh4910-36-03 06:12:00* Test Item Value Reference Range Interpretation Comments Glucose Level (test code = XMF8945) 91 74-118 [facility] HospitalCalcium Mtpgr2457-61-00 06:12:00* Test Item Value Reference Range Interpretation Comments Calcium Level (test code = 62822-6) 8.6 8.4-10.2 [facility] HospitalBlood Wunfxvx2191-61-43 08:55:00* Test Item Value Reference Range Interpretation Comments Blood Culture (test code = 600-7) No Result Data Provided [facility] HospitalWhite Blood Ulctv7362-47-03 06:16:00* Test Item Value Reference Range Interpretation Comments White Blood Count (test code = 6690-2) 5.10 4.8-10.8 [facility] HospitalRed Blood Ppmno8462-34-65 06:16:00* Test Item Value Reference Range Interpretation Comments Red Blood Count (test code = 789-8) 3.69 3.6-5.1 [facility] HospitalHemoglobin2020-03-29 06:16:00* Test Item Value Reference Range Interpretation Comments Hemoglobin (test code = 89060-1) 9.6 12.0-16.0 L [facility] HospitalHematocrit2020-03-29 06:16:00* Test Item Value Reference Range Interpretation Comments Hematocrit (test code = 4544-3) 29.9 34.2-44.1 L [facility] HospitalMean Corpuscular Qkfznm8405-73-15 06:16:00* Test Item Value Reference Range Interpretation Comments Mean Corpuscular Volume (test code = 787-2) 81.0 81-99 [facility] HospitalMean Corpuscular Ytkfpbffgp3214-29-68 06:16:00* Test Item Value Reference Range Interpretation Comments Mean Corpuscular Hemoglobin (test code = 785-6) 26.0 28-32 L [facility] HospitalMean Corpuscular Hemoglobin Concent 2019-12-04 06:16:00* Test Item Value Reference Range Interpretation Comments Mean Corpuscular Hemoglobin Concent (test code = 786-4) 32.1 31-35 [facility] HospitalRed Cell Distribution Dxwrf3166-40-09 06:16:00* Test Item Value Reference Range Interpretation Comments Red Cell Distribution Width (test code = 30963-9) 14.9 11.7 -14.4 H [facility] HospitalPlatelet Nariu7539-49-12 06:16:00* Test Item Value Reference Range Interpretation Comments Platelet Count (test code = 777-3) 408 140-360 H [facility] HospitalNeutrophils (%) (Auto)2019-12-04 06:16:00 * Test Item Value Reference Range Interpretation Comments Neutrophils (%) (Auto) (test code = 13681-8) 42.0 38.7-80.0 [facility] HospitalLymphocytes (%) (Auto)2019-12-04 06:16:00 * Test Item Value Reference Range Interpretation Comments Lymphocytes (%) (Auto) (test code = 736-9) 33.5 18.0-39.1 [facility] HospitalMonocytes (%) (Auto)2019-12-04 06:16:00* Test Item Value Reference Range Interpretation Comments Monocytes (%) (Auto) (test code = 5905-5) 14.7 4.4-11.3 H [facility] HospitalEosinophils (%) (Auto)2019-12-04 06:16:00 * Test Item Value Reference Range Interpretation Comments Eosinophils (%) (Auto) (test code = 713-8) 9.0 0.0-6.0 H [facility] HospitalBasophils (%) (Auto)2019-12-04 06:16:00* Test Item Value Reference Range Interpretation Comments Basophils (%) (Auto) (test code = 706-2) 0.6 0.0-1.0 [facility] HospitalIM GRANULOCYTES %2019-12-04 06:16:00* Test Item Value Reference Range Interpretation Comments IM GRANULOCYTES % (test code = IM GRANULOCYTES %) 0.2 0.0- 1.0 [facility] HospitalNeutrophils # (Auto)2019-12-04 06:16:00* Test Item Value Reference Range Interpretation Comments Neutrophils # (Auto) (test code = 751-8) 2.1 2.1-6.9 [facility] HospitalLymphocytes # (Auto)2019-12-04 06:16:00* Test Item Value Reference Range Interpretation Comments Lymphocytes # (Auto) (test code = 50126-3) 1.7 1.0-3.2 [facility] HospitalMonocytes # (Auto)2019-12-04 06:16:00* Test Item Value Reference Range Interpretation Comments Monocytes # (Auto) (test code = 742-7) 0.8 0.2-0.8 [facility] HospitalEosinophils # (Auto)2019-12-04 06:16:00* Test Item Value Reference Range Interpretation Comments Eosinophils # (Auto) (test code = 711-2) 0.5 0.0-0.4 H [facility] HospitalBasophils # (Auto)2019-12-04 06:16:00* Test Item Value Reference Range Interpretation Comments Basophils # (Auto) (test code = 704-7) 0.0 0.0-0.1 [facility] HospitalAbsolute Immature Granulocyte (auto 2019-12-04 06:16:00* Test Item Value Reference Range Interpretation Comments Absolute Immature Granulocyte (auto (lenin t code = Absolute Immature Granulocyte (auto) 0.01 0-0.1 [facility] HospitalBlood Pbsnxwi8698-20-97 01:53:00* Test Item Value Reference Range Interpretation Comments Blood Culture (test code = 30936195) NO GROWTH AFTER 5 DAYS, FINAL REPORT [facility] HospitalMagnesium Rxpgv2878-85-61 05:58:00* Test Item Value Reference Range Interpretation Comments Magnesium Level (test code = 65156-9) 1.5 1.3-2.1 [facility] HospitalTotal Ynxldxbwk5481-30-13 05:58:00* Test Item Value Reference Range Interpretation Comments Total Bilirubin (test code = 1975-2) 0.2 0.2-1.2 [facility] HospitalAspartate Amino Transf (AST/SGOT) 2019-12-02 05:58:00* Test Item Value Reference Range Interpretation Comments Aspartate Amino Transf (AST/SGOT) (test code = Aspartate Amino Transf (AST/SGOT)) 20 5-34 [facility] HospitalAlanine Aminotransferase (ALT/SGPT) 2019-12-02 05:58:00* Test Item Value Reference Range Interpretation Comments Alanine Aminotransferase (ALT/SGPT) (test code = 1742-6) 11 0-55 [facility] HospitalTotal Wuqmmvo1789-29-66 05:58:00* Test Item Value Reference Range Interpretation Comments Total Protein (test code = 2885-2) 7.4 6.5-8.1 [facility] HospitalAlbumin2020-03-27 05:58:00* Test Item Value Reference Range Interpretation Comments Albumin (test code = 1751-7) 2.9 3.5-5.0 L [facility] HospitalGlobulin2020-03-27 05:58:00* Test Item Value Reference Range Interpretation Comments Globulin (test code = 45722-6) 4.5 2.3-3.5 H [facility] HospitalAlbumin/Globulin Xudjk3351-12-76 05:58:00 * Test Item Value Reference Range Interpretation Comments Albumin/Globulin Ratio (test code = 1759-0) 0.6 0.8-2.0 L [facility] HospitalAlkaline Ssshaooujyi8967-25-35 05:58:00* Test Item Value Reference Range Interpretation Comments Alkaline Phosphatase (test code = 6768-6) 67 40-150 [facility] [id number] 01:05:00 [facility] [address] [place] [address] Patient Name: CHRISTIANO BAUTISTA MR #: [id number] : 1940 Age/Sex: 79/F Req #: [id number] Adm Physician: Ordered by: GRECIA GARCIA DO Report #: [id number] Location: ER Room/Bed: Procedure: [id number] CT /CT ABDOMEN/PELVIS W Exam Date: 11/28/19 Exam Time: 2350 REPORT STATUS: Signed EXAM: CT Abdomen and Pelvis WITH contrast INDICATION: Diarrhea, cough COM PARISON: Chest x-ray 11/28/2019 TECHNIQUE: Abdomen and pelvis were scanned util izing a multidetector helical scanner from the lung base to the pubic symphysi s after administration of IV contrast. Coronal and sagittal reformations were obtained. Routine protocol was performed. Scan was performed when during marleny l venous phase. IV CONTRAST: 100 mL of Isovue 370 ORAL CONTRAS T: None COMPLICATIONS: None RADIATION DOSE: Total D LP: 567 mGy*cm Estimated effective dose: (DLP x 0.015 x size factor) mSv CTDIvol has been reviewed. It is below the limits set by the Radiation Protocol Committee (RPC). Dose modulation, iterative reconstruction, and/ or weight based adjustment of the mA/kV was utilized to reduce the radiation d ose to as low as reasonably achievable. FINDINGS: LINES and TUBES: None. LOWER THORAX: Unremarkable HEPATOBILIARY: Subcentimeter hypoden sity in the right hepatic lobe, too small to characterize, likely benign. No biliary ductal dilation. GALLBLADDER: There are cholecystectomy clips. SPLEEN: No splenomegaly. PANCREAS: There is fatty infiltration of the pancreas. No focal mass. ADRENALS: No adrenal nodules KIDN EYS/URETERS: Kidneys enhance symmetrically. No hydronephrosis. Right renal castellon perior pole simple cyst. There are a few other scattered too small to characte rize hypodensites, likely benign. No stones. GI TRACT: Partially visualize d large sliding gastric hiatal hernia. Sigmoid colonic wall thickening and per icolonic fat stranding, with a 7 mm hypodensity within the wall of the sigmoid colon (series 300 image 55).. Extensive colonic diverticulosis, worst in the sigmoid colon. No abnormal distention evidence of bowel obstruction. Devorah endix is not clearly identified. There is however no fat stranding or adenopat hy in the right lower quadrant to suggest appendicitis. PELVIC ORGANS/FELIPE DDER: Hysterectomy. No adnexal masses. Urinary bladder unremarkable. LYMPH NODES: No lymphadenopathy. VESSELS: Scattered mild arterial vascular calcifications. PERITONEUM / RETROPERITONEUM: No free air or fluid. YANIRA ISATU: Degenerative changes in the spine hips and pelvis. SOFT TISSUES: U nremarkable. IMPRESSION: 1. Acute sigmoid diverticulitis , with a 7 mm intramural abscess. 2. Partially visualized large sliding ga stric hiatal hernia. Signed by: Morlaes Li DO on 11/29/2019 1:13 AM Dictated By: MORALES LI DO 2 Transcribed By: AXEL on 11/29/19112 COPY TO: GRECIA GARCIA DO Urine [id number] 00:19:00* Test Item Value Reference Range Interpretation Comments Urine WBC (test code = 5821-4) 0-5 0-5 [facility] [id number] 00:19:00* Test Item Value Reference Range Interpretation Comments Urine RBC (test code = 26446-5) 0-5 0-5 [facility] [id number] 00:19:00* Test Item Value Reference Range Interpretation Comments Urine Bacteria (test code = 40669-7) RARE NONE [facility] Epithelial [id number] 00:19:00 * Test Item Value Reference Range Interpretation Comments Urine Epithelial Cells (test code = 26761-6) FEW NONE [facility] [id number] 00:03:00* Test Item Value Reference Range Interpretation Comments Urine Color (test code = 5778-6) YELLOW YELLOW [facility] [id number] 00:03:00* Test Item Value Reference Range Interpretation Comments Urine Clarity (test code = 99453-8) CLEAR CLEAR [facility] Specific [id number] 00:03:00 * Test Item Value Reference Range Interpretation Comments Urine Specific [place] (test code = 5811-5) 1.010 1.010-1.02 5 [facility] [id number] 00:03:00* Test Item Value Reference Range Interpretation Comments Urine pH (test code = 99615-0) 6 5-7 [facility] Leukocyte Egztfovh8677-06-76 00:03:00* Test Item Value Reference Range Interpretation Comments Urine Leukocyte Esterase (test code = 5799-2) NEGATIVE NEGATIVE [facility] [id number] 00:03:00* Test Item Value Reference Range Interpretation Comments Urine Nitrite (test code = 86628-9) NEGATIVE NEGATIVE [facility] [id number] 00:03:00* Test Item Value Reference Range Interpretation Comments Urine Protein (test code = 5804-0) NEGATIVE NEGATIVE [facility] Glucose (UA)2019-11-29 00:03:00* Test Item Value Reference Range Interpretation Comments Urine Glucose (UA) (test code = 2349-9) NEGATIVE NEGATIVE [facility] [id number] 00:03:00* Test Item Value Reference Range Interpretation Comments Urine Ketones (test code = 39740-9) NEGATIVE NEGATIVE [facility] Exjvikneysbd0627-47-19 00:03:00* Test Item Value Reference Range Interpretation Comments Urine Urobilinogen (test code = 87023-8) 0.2 0.2-1 [facility] Zxcjmtlet6911-25-82 00:03:00* Test Item Value Reference Range Interpretation Comments Urine Bilirubin (test code = 1978-6) NEGATIVE NEGATIVE [facility] Frefj1082-74-71 00:03:00* Test Item Value Reference Range Interpretation Comments Urine Blood (test code = 76046-6) NEGATIVE NEGATIVE [facility]2019-11-28 23:54:00 [facility] [address] [address] Patient Name: CHRISTIANO BAUTISTA MR #: [id number] : 1940 Age/Sex: 79/F Req #: [id number] Adm Physician: Ordered by: GRECIA GARCIA DO Report #: [id number] Location: ER Room/Bed: Procedure: [id number] DX /CHEST SINGLE (PORTABLE) Exam Date: 11/28/19 Exam Ti me: 2310 REPORT STATUS: Signed E XAMINATION: CHEST SINGLE (PORTABLE) INDICATION: Abdominal pain COMPARISON: None FINDINGS: TUBES and LINES: None. L UNGS: Normal lung volumes. Lungs are clear. No consolidations. PLEURA: No pleural effusion or pneumothorax. HEART AND MEDIASTINUM: Lobular soft ti ssue fullness in the lower mediastinum. The cardiomediastinal silhouette is wi thin normal size limits. Aortic calcifications. BONES AND SOFT TISSUES: Degenerative changes in the spine and shoulders. Soft tissues are unremarkabl e. UPPER ABDOMEN: No free air under the diaphragm. IMPRESSION: Findings of a sliding hiatal hernia. Signed by: Morales Li DO on 11:55 PM Dictated By: MORALES LI DO 2829 Transcribed By: AXEL on 11/28/19 COPY TO: GRECIA GARCIA DO Influenza Virus Types A,B [id number] 22:55:00* Test Item Value Reference Range Interpretation Comments Influenza Virus Types A,B Antigen (test code = 70808-7) NEGATIVE NEGATIVE [facility] [id number] 22:35:00* Test Item Value Reference Range Interpretation Comments Creatine Kinase (test code = 2157-6) 37 29-168 [facility] Kinase [id number] 22:35:00* Test Item Value Reference Range Interpretation Comments Creatine Kinase MB (test code = 00053-1) 1.40 0-5.0 [facility] [id number] 22:35:00* Test Item Value Reference Range Interpretation Comments Troponin I (test code = 23591-9) < 0.001 0-0.300 [facility] ULTR[facility]OUND [id number] 09:25:17- BREAST ULTRASOUND BILATERALULTRASOUND OF BOTH BREASTS AND BOTH AXILLA: 06/16/2019CLINICAL: Supplemental Screening for Dense Breast. Comparison is made to exams dated 05/19/2019 mammogram, 04/24/2016 mammogram, 05/09/2015 mammogram, and 05/09/2015 ultrasound - [facility]. Real-time ultrasound of both breasts [...] in 1 year.Stephany Ramsey M.D. dm/:06/17/2019 09:25:17 Paver Operator: Dory Clemente FW, [facility] sent: BIRADS 1-2 Combo FU Letter Ultrasound BI-RADS: 2 BenignSCR MAMM BILATERAL LORENA CAD [id number] 18:03:23 - SCR MAMM BILATERAL LORENA CAD DIGITALBILATERAL DIGITAL SCREENING MAMMOGRAM 3D/2D WITH CAD: 05/19/2019CLINICAL: Asymptomatic. Digital breast tomosynthesis was performed in addition to routine CC and MLO views. Current mammographic images were evaluated by either a [employer] M-Vu or a [employer] ImageChecker CAD (computer aided detection system). Comparison is made to exams dated 04/24/2016 mammogram, 04/23/2015 mammogram, and 04/20/2014 mammogram - [facility]. The tissue of both breasts is heterogeneously dense. This may lower the sensitivity of mammography. There is a benign calcification in the left breast. No suspici ous mass, architectural distortion, malignant type calcification, or lymph node abnormality detected. Breast architecture is stable compared to prior exams.IMP RESSION: BENIGNThere is no mammographic evidence of malignancy. Resume annual sc reening mammography in one year. [facility] goetz/scooter:05/20/2019 18: 03:23 Paver Operator: Regina Saul FW, [facility] r sent: BIRADS 1-2 Normal Mammogram BI-RADS: 2 Benign
--- OUTSIDE RECORDS SUMMARY | 2020-02-02 11:35 | XMS REPORT | Continuity of Care Document ---
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 (Same as: [place] 325/10) No Longer Active 10/13/2019 [facility] [...] Total Volume: 1,000, Start date: 10/13/19 8:51:00 [employer], Duration: 30 day, Stop date: 11/12/19 8:50:00 [employer], 1.66, m2, 0 No Longer Active 10/13/2019 [facility] Lactated Ringers IV 1,000 mL 1 ,000 mL, Rate: 125 ml/hr, Infuse over: 8 hr, Route: IV, Dosing Weight 60.909 kg, Total Volume: 1,000, Start date: 10/13/19 7:42:00 [employer], Duration: 30 day, Stop date: 11/12/19 7:41:00 [employer], 1.66, m2, 0 Inactive 10/13/2019 Ortho and [...] 23-valent vaccine 06/05/2007 Right gluteus medius completed [facility], DENNIS Torre, DENNIS [place] Results No Data Provided for This Section Pathology Reports No Data Provided for This Section Diagnostic Reports Report Value Date Source Spine cervical wo contrast MRI Spine cervical wo contrast MRI 09/02/2019 14:57 [facility] CLINICAL: - M54.12 Radiculopathy, cervical region TECHNIQUE: [...] degenerative anterolist hesis. 4. Several levels of ibks-fc-tmvkgdbc fo raminal stenosis. 09/02/2019 DENNIS Torre Chest [...] joint disease relative to prior imaging. 05/14/2018 [facility] Knee 3 Views Bilateral DX EXAM : [...] most evident at the left patella. 08/08/2015 [facility] Foot 3 views bilateral DX EXAM : [...] at the third tarsometatarsal joints bilaterally. 08/08/2015 [facility] Hand 3 views Bilateral DX EXAM : [...] the thumb bilaterally. No definite erosions. 08/08/2015 [facility] Consultation Notes No Data Provided for This [...] Provider ADM Date DC Date Status Source [facility] [place] [facility] [id number] 00 Angelina Lares 08/08/2015 08/09/2015 [facility] [place] Out[facility] [id number] 01 Daxa Brown 11/20/2017 11/20/2017 [facility] [place] [facility] [place] [facility] [id number] 02 Briana Casarez 05/14/2018 05/15/2018 [facility] [place] Out[facility] Di[facility] Services [id number] 03 Briana Casarez 09/02/2019 09/03/2019 [facility] [place] [facility] [phone] Cecil Alves 10/13/2019 10/14/2019 [facility] Procedures Procedure Code Date Perfomer Comments Source Cholecystectomy 10661719 [facility] Partial hysterectomy [id number] [facility] Tonsillectomy [id number] [facility] Total knee replacement<sup>1</sup> [id number] bilateral [facility] Assessment and Plan [...] available for this section 05/15/2018 DUANE COLLINS [place] Family History No Data Provided for This Section Advance Directives No Data Provided for This Section Functional Status No Data Provided for This Section
--- OUTSIDE RECORDS SUMMARY | 2020-02-02 11:35 | XMS REPORT ---
Author Author [facility] t Organization [facility] Address [address] [place] [address] Phone Unavailable Care Team Providers Care Provider Relations Advocate Name Role Phone Justine BROWN PCP CHIDI JACKSON Attphys Unavailable Carlo Alves Attphys Humaira Casarez Attphys Sayra Brown Attphys Kay Lares Attphys CHIDI JACKSON Admphys Unavailable Payers Payer Name Policy Type Policy Number Effective Date Expiration Date [id number] 2019 00:[facility]00 [facility] Medicare A & B [id number] 2007 00:00:00 [facility] Problems Condition Name Condition Details Condition Category Status Onset Date Resolution Date Last Treatment Date Treating Clinician Comments Source SPONDYLOSIS, CERVICAL DDD SPON DYLOSIS, CERVICAL DDD Active 10/05/2019 [facility] Diagnosis Active 2019-10-05 00:00: 00 2019-10-19 15:23:00 [facility] R42 - DIZZINESS AND GIDDINESS R42 - DIZZINESS AND GIDDINESS Active 11/11/2017 [facility] [place] Diagnosis Active 2017-11-11 00:01:00 2018-02-23 21:11:00 [facility] [place] Atrial fibrillation A-fib Problem Active 2015-09-08 00:00:00 [facility] 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 Active 08/08/2015 [facility] Diagnosis Active 2015-08-08 00:01:00 2015-08-08 15:50:00 M ade [place] GENERALIZED ABDOMINAL PAIN Problem Active [facility] Sicca syndrome, unspecified Si cca syndrome, unspecified 12/01/2018 [facility] [place] Problem 2018-12-01 15:13:21 [facility] Vitamin D deficiency, unspecified Vitamin D deficiency, unspecified 12/01/2018 [facility] Problem 15:13:21 [facility] Anxiety (finding) Anxi ety (finding) Resolved Problem [...] abnormal immunological findings in serum 05/20/2018 12/01/2018 [facility] Problem 2018-05-20 04:51:55 2018-12-01 15:13:21 2018-12-01 15:13:21 [facility] Allergies, Adverse Reactions, Alerts Allergy Name Allergy Type Status Severity Reaction(s) Onset Date Inacti ve Date Treating Clinician Comments Source Sulfa (Sulfonamide Antibiotics) Allergy to Substance Active 2019-11-28 00:00:00 [facility] Morphine Allergy to Substance Active 2019-11-28 00:00:00 [facility] Codeine Propensity to adverse reactions Active 2019-11-28 0 0:00:00 [facility] TRAZADONE Allergy to Substance Active 2019-11-28 00:00:00 [facility] sulfa drugs sulfa drugs Active [facility] NKFA NKFA Active [facility] codeine codeine Active [facility] Social History Social Habit Start Date Stop Date Quantity Comments Source Social History 2018-05-15 04:59:00 2018-05-15 04:59:00 [facility] Medications Ordered Medication Name Filled Medication Name [...] Total Volume: 1,000, Start date: 10/13/19 8:51:00 PROJECT COORDINATOR, Duration: 30 day, Stop date: 11/12/19 8:50:00 PROJECT COORDINATOR, 1.66, m2, 0 [facility] Acetaminophen 325 MG / Hydrocodone Bitartrate 10 MG Oral Tab let 2019-10-13 14:51:00 No Notes: Do not exceed 4gm/day of acetaminophen. (Same as: [place] 325/10) [facility] Hydromorphone 2019-10-13 14:51:00 [...] Total Volume: 1,000, Start date: 10/13/19 8:51:00 PROJECT COORDINATOR, Duration: 30 day, Stop date: 11/12/19 8:50:00 PROJECT COORDINATOR, 1.66, m2, 0 [facility] Lactated Ringers IV 1,000 mL 2019-10-13 13:42:00 No 1,000 mL, Rate: 125 ml/hr, Infuse over: 8 hr, Route: IV, Dosing Weight 60.909 kg, Total Volume: 1,000, Start date: 10/13/19 7:42:00 PROJECT COORDINATOR, Duration: 30 day, Stop date: 11/12/19 7:41:00 PROJECT COORDINATOR, 1.66, m2, 0 [facility] [...] 00:00:00 No Avni Wiley Md 400 Daily [facility] Metoprolol Succinate 25 Mg Tab.er.24h, 25 Mg Oral Meto prolol Succinate 25 Mg Tab.er.24h, 25 Mg Oral 2015-09-13 00:00:00 2019-11-29 00:00:00 No H juanita Wiley Md 25 Twice A Day [facility] Amlodipine Besylate 5 Mg Tablet Amlodipine Besylate 5 Mg Tablet Yes [address] [facility] Gabapentin 100 Mg Capsule Gabapentin 100 Mg Capsule Yes [address] [facility] Hydrochlorothiazide 12.5 Mg Tablet Hydrochlorothiazide 12.5 Mg Tablet Yes 12.5 Daily [facility] Losartan Potassium 100 Mg Tablet Losartan Potassium 100 Mg Tablet Yes 100 Daily [facility] Omeprazole 40 Mg Capsule. Omeprazole 40 Mg Capsule. Yes 40 Daily [facility] Omeprazole (Prilosec) 20 Mg Capsule., 20 Mg Oral Ome prazole (Prilosec) 20 Mg Capsule., 20 Mg Oral 2019-11-29 00:00:00 No 20 D aily [facility] Pilocarpine Hcl 5 Mg Tablet, 5 Mg Oral Pilocarpine Hcl 5 Mg Tabl et, 5 Mg Oral 2019-11-29 00:00:00 No 5 Three Times A Day [facility] Losartan/Hydrochlorothiazide (Losartan-H ctz 50-12.5 Mg Tab) 1 Each Tablet, 50 Mg Oral Losartan/Hydrochlorothiazide (Losartan-H ctz 50-12.5 Mg Tab) 1 Each Tablet, 50 Mg Oral 2015-09-13 00:00:00 No 50 Daily [facility] Losartan/Hydrochlorothiazide (Hyzaar 50-12.5 Tablet) 1 Each Tablet, 1 Each Oral Losartan/Hydrochlorothiazide (Hyzaar 50-12.5 Tablet) 1 Each Tablet, 1 Each Oral 2015-09-09 00:00:00 No 1 Daily [facility] Vital Signs Vital Name Observation Time Observation [...] pelvis with contrast 2019 00:00:00 CHIDI JACKSON [facility] Computed tomography of abdomen and pelvis with contrast 2019 00:00:00 GRECIA GARCIA [facility] Cholecystectomy [facility] Partial hysterectomy [facility] Tonsillectomy [facility] Total knee replacement<sup>1</sup> [facility] Encounters Start Date/Time End Date/Time Encounter Type Admission Type [facility] Care Department Encounter ID Source 2019-11-29 02:21:00 2019-12-08 18:12:00 Discharged Inpatient [address] [facility] [id number] [facility] 2019-10-13 12:11:00 2019-10-14 05:59:00 Day Surgery [facility] [id number] [facility] 2019-10-13 06:11:00 2019-10-13 23:59:00 Outpatient Cecil Alves [facility] [id number] 2019-10-13 06:11:00 2019-10-13 06:11:00 [facility] 2019-09-02 19:54:00 2019-09-03 05:59:00 [facility]pt [facility] [place] [id number] [facility] [place] 2019-09-02 13:54:00 2019-09-02 23:59:00 Outpatient Briana Casarez [facility] [id number] 2018-05-14 16:35:00 2018-05-15 04:59:00 [facility]pt [facility] [place] [id number] [facility] [place] 2018-05-14 11:35:00 2018-05-14 23:59:00 Outpatient Briana Casarez [facility] [id number] 2017-11-20 15:30:00 2017-11-20 15:30:00 [facility] [place] [id number] MH [facility] [place] 2017-11-20 10:30:00 2017-11-20 10:30:00 Outpatient Daxa Brown [facility] [id number] 2015-08-08 21:39:00 2015-08-09 05:59:00 Outpt Di[facility] [place] [id number] [facility] [place] 2015-08-08 15:39:00 2015-08-08 23:59:00 Outpatient Angelina Lares [facility] [id number] Results Test Description Test Time Test Comments Results Result Comments Source CT ABDOMEN/PELVIS W 2019-12-05 12:18:00 [facility] [address] [place], [place] [address] Patient Name: CHRISTIANO BAUTISTA MR #: [id number] : 1940 Age/Sex: 79/F Req #: [id number] Adm Physician: CHIDI JACKSON MD Ordered by: CHIDI JACKSON MD Report #: [id number] Location: MED/SURG Room/Bed: [facility] Procedure: [id number] CT/CT ABDOMEN/PELVIS W Exam Date: 12/05/19 Exam [...] Level (test code = 2951-2) 139 136-145 [facility] AlliancePot[facility] Enthk7790-37-69 06:12:00* Test Item Value Reference Range Interpretation Comments Potassium Level (test code = 2823-3) 3.6 3.5-5.1 [facility] AllianceChloride [id number] 06:12:00* Test Item Value Reference Range Interpretation Comments Chloride Level (test code = 2075-0) 106 98-107 [facility] AllianceCarbon Dioxide Hbath8610-79-22 06:12:00* Test Item Value Reference Range Interpretation Comments Carbon Dioxide Level (test code = 2028-9) 28 22-29 [facility] AllianceAnion Yoy3887-03-77 06:12:00* Test Item Value Reference Range Interpretation Comments Anion Gap (test code = 61580-3) 8.6 8-16 [facility] AllianceBlood Urea Bheqzphh8924-62-90 06:12:00* Test Item Value Reference Range Interpretation Comments Blood Urea Nitrogen (test code = 3094-0) 6 7-26 L [facility] AllianceCreatinine2020-03-30 06:12:00* Test Item Value Reference Range Interpretation Comments Creatinine (test code = 2160-0) 0.76 0.57-1.11 [facility] AllianceBUN/Creatinine Bsgaw5645-93-72 06:12:00* Test Item Value Reference Range Interpretation Comments BUN/Creatinine Ratio (test code = 3097-3) 8 6-25 [facility] AllianceEstimat Glomerular Filtration Rate 2019-12-05 06:12:00* Test Item Value Reference Range Interpretation Comments Estimat Glomerular Filtration Rate (test code = 609735929) > 60 >60 Ranges were taken from the National Kidney Disease Education Program and the [facility] Kidney Foundation literature.Reference ranges:60 or greater: Fullfq10-70 ( for 3 consecutive months): Chronic kidney disease 15 or less: Kidney failureTexas Health Harris Medical Hospital AllianceGlucose Rfnsw0246-37-52 06:12:00* Test Item Value Reference Range Interpretation Comments Glucose Level (test code = YIE1677) 91 74-118 [facility] AllianceCalcium Mdtby4745-93-64 06:12:00* Test Item Value Reference Range Interpretation Comments Calcium Level (test code = 01631-1) 8.6 8.4-10.2 [facility] AllianceBlood Zhkmdlk7736-67-78 08:55:00* Test Item Value Reference Range Interpretation Comments Blood Culture (test code = 600-7) No Result Data Provided [facility] AllianceWhite Blood Zkoqu5595-08-36 06:16:00* Test Item Value Reference Range Interpretation Comments White Blood Count (test code = 6690-2) 5.10 4.8-10.8 [facility] AllianceRed Blood Jcwjb2557-17-69 06:16:00* Test Item Value Reference Range Interpretation Comments Red Blood Count (test code = 789-8) 3.69 3.6-5.1 [facility] AllianceHemoglobin2020-03-29 06:16:00* Test Item Value Reference Range Interpretation Comments Hemoglobin (test code = 59119-7) 9.6 12.0-16.0 L [facility] AllianceHematocrit2020-03-29 06:16:00* Test Item Value Reference Range Interpretation Comments Hematocrit (test code = 4544-3) 29.9 34.2-44.1 L [facility] AllianceMean Corpuscular Gzgcbm6211-01-85 06:16:00* Test Item Value Reference Range Interpretation Comments Mean Corpuscular Volume (test code = 787-2) 81.0 81-99 [facility] AllianceMean Corpuscular Ramztjardv9894-35-84 06:16:00* Test Item Value Reference Range Interpretation Comments Mean Corpuscular Hemoglobin (test code = 785-6) 26.0 28-32 L [facility] AllianceMean Corpuscular Hemoglobin Concent 2019-12-04 06:16:00* Test Item Value Reference Range Interpretation Comments Mean Corpuscular Hemoglobin Concent (test code = 786-4) 32.1 31-35 [facility] AllianceRed Cell Distribution Uaflk8197-30-02 06:16:00* Test Item Value Reference Range Interpretation Comments Red Cell Distribution Width (test code = 00451-1) 14.9 11.7 -14.4 H [facility] AlliancePlatelet Gzbmb4395-39-94 06:16:00* Test Item Value Reference Range Interpretation Comments Platelet Count (test code = 777-3) 408 140-360 H [facility] AllianceNeutrophils (%) (Auto)2019-12-04 06:16:00 * Test Item Value Reference Range Interpretation Comments Neutrophils (%) (Auto) (test code = 92123-9) 42.0 38.7-80.0 [facility] AllianceLymphocytes (%) (Auto)2019-12-04 06:16:00 * Test Item Value Reference Range Interpretation Comments Lymphocytes (%) (Auto) (test code = 736-9) 33.5 18.0-39.1 [facility] AllianceMonocytes (%) (Auto)2019-12-04 06:16:00* Test Item Value Reference Range Interpretation Comments Monocytes (%) (Auto) (test code = 5905-5) 14.7 4.4-11.3 H [facility] AllianceEosinophils (%) (Auto)2019-12-04 06:16:00 * Test Item Value Reference Range Interpretation Comments Eosinophils (%) (Auto) (test code = 713-8) 9.0 0.0-6.0 H [facility] AllianceBasophils (%) (Auto)2019-12-04 06:16:00* Test Item Value Reference Range Interpretation Comments Basophils (%) (Auto) (test code = 706-2) 0.6 0.0-1.0 [facility] AllianceIM GRANULOCYTES %2019-12-04 06:16:00* Test Item Value Reference Range Interpretation Comments IM GRANULOCYTES % (test code = IM GRANULOCYTES %) 0.2 0.0- 1.0 [facility] AllianceNeutrophils # (Auto)2019-12-04 06:16:00* Test Item Value Reference Range Interpretation Comments Neutrophils # (Auto) (test code = 751-8) 2.1 2.1-6.9 [facility] AllianceLymphocytes # (Auto)2019-12-04 06:16:00* Test Item Value Reference Range Interpretation Comments Lymphocytes # (Auto) (test code = 65293-5) 1.7 1.0-3.2 [facility] AllianceMonocytes # (Auto)2019-12-04 06:16:00* Test Item Value Reference Range Interpretation Comments Monocytes # (Auto) (test code = 742-7) 0.8 0.2-0.8 [facility] AllianceEosinophils # (Auto)2019-12-04 06:16:00* Test Item Value Reference Range Interpretation Comments Eosinophils # (Auto) (test code = 711-2) 0.5 0.0-0.4 H [facility] AllianceBasophils # (Auto)2019-12-04 06:16:00* Test Item Value Reference Range Interpretation Comments Basophils # (Auto) (test code = 704-7) 0.0 0.0-0.1 [facility] AllianceAbsolute Immature Granulocyte (auto 2019-12-04 06:16:00* Test Item Value Reference Range Interpretation Comments Absolute Immature Granulocyte (auto (lenin t code = Absolute Immature Granulocyte (auto) 0.01 0-0.1 [facility] AllianceBlood Kvsrkse6800-58-20 01:53:00* Test Item Value Reference Range Interpretation Comments Blood Culture (test code = 44161754) NO GROWTH AFTER 5 DAYS, FINAL REPORT [facility] AllianceMagnesium Jyuov0449-39-10 05:58:00* Test Item Value Reference Range Interpretation Comments Magnesium Level (test code = 98847-1) 1.5 1.3-2.1 [facility] AllianceTotal Pysivouye0791-10-11 05:58:00* Test Item Value Reference Range Interpretation Comments Total Bilirubin (test code = 1975-2) 0.2 0.2-1.2 [facility] AllianceAspartate Amino Transf (AST/SGOT) 2019-12-02 05:58:00* Test Item Value Reference Range Interpretation Comments Aspartate Amino Transf (AST/SGOT) (test code = Aspartate Amino Transf (AST/SGOT)) 20 5-34 [facility] AllianceAlanine Aminotransferase (ALT/SGPT) 2019-12-02 05:58:00* Test Item Value Reference Range Interpretation Comments Alanine Aminotransferase (ALT/SGPT) (test code = 1742-6) 11 0-55 [facility] AllianceTotal Egblbox5686-65-75 05:58:00* Test Item Value Reference Range Interpretation Comments Total Protein (test code = 2885-2) 7.4 6.5-8.1 [facility] AllianceAlbumin2020-03-27 05:58:00* Test Item Value Reference Range Interpretation Comments Albumin (test code = 1751-7) 2.9 3.5-5.0 L [facility] AllianceGlobulin2020-03-27 05:58:00* Test Item Value Reference Range Interpretation Comments Globulin (test code = 07895-5) 4.5 2.3-3.5 H [facility] AllianceAlbumin/Globulin Retaf7559-95-39 05:58:00 * Test Item Value Reference Range Interpretation Comments Albumin/Globulin Ratio (test code = 1759-0) 0.6 0.8-2.0 L [facility] AllianceAlkaline Hcfwshcabuf1049-50-61 05:58:00* Test Item Value Reference Range Interpretation Comments Alkaline Phosphatase (test code = 6768-6) 67 40-150 [facility] [id number] 01:05:00 [facility] [address] [place] [address] Patient Name: CHRISTIANO BAUTISTA MR #: [id number] : 1940 Age/Sex: 79/F Req #: [id number] Adm Physician: Ordered by: GRECIA GARCIA DO Report #: [id number] Location: ER Room/Bed: Procedure: [id number] CT /CT ABDOMEN/PELVIS W Exam Date: 11/28/19 [...] sliding ga stric hiatal hernia. Signed by: Morales Li DO on 11/29/2019 1:13 AM Dictated By: MORALES LI DO 2 Transcribed By: AXEL on 11/29/19112 COPY TO: GRECIA GARCIA DO Urine [id number] 00:19:00* Test Item Value Reference Range Interpretation Comments Urine WBC (test code = 5821-4) 0-5 0-5 [facility] AllianceUrine MFU8817-15-60 00:19:00* Test Item Value Reference Range Interpretation Comments Urine RBC (test code = 93677-5) 0-5 0-5 [facility] AllianceUrine Gqfpihba9662-26-68 00:19:00* Test Item Value Reference Range Interpretation Comments Urine Bacteria (test code = 91857-7) RARE NONE [facility] AllianceUrine Epithelial Eshsu4802-82-87 00:19:00 * Test Item Value Reference Range Interpretation Comments Urine Epithelial Cells (test code = 23745-6) FEW NONE [facility] AllianceUrine Sozhq2480-75-81 00:03:00* Test Item Value Reference Range Interpretation Comments Urine Color (test code = 5778-6) YELLOW YELLOW [facility] AllianceUrine Meycsof2316-26-25 00:03:00* Test Item Value Reference Range Interpretation Comments Urine Clarity (test code = 81433-9) CLEAR CLEAR [facility] AllianceUrine Specific Ojljfky6233-34-24 00:03:00 * Test Item Value Reference Range Interpretation Comments Urine Specific Macy (test code = 5811-5) 1.010 1.010-1.02 5 [facility] AllianceUrine [id number] 00:03:00* Test Item Value Reference Range Interpretation Comments Urine pH (test code = 87011-9) 6 5-7 [facility] AllianceU[facility] Leukocyte Qbhybtyl6282-75-33 00:03:00* Test Item Value Reference Range Interpretation Comments Urine Leukocyte Esterase (test code = 5799-2) NEGATIVE NEGATIVE [facility] AllianceUrine Grykaov4407-56-13 00:03:00* Test Item Value Reference Range Interpretation Comments Urine Nitrite (test code = 15828-0) NEGATIVE NEGATIVE [facility] AllianceUrine Ocskqsp7328-51-69 00:03:00* Test Item Value Reference Range Interpretation Comments Urine Protein (test code = 5804-0) NEGATIVE NEGATIVE [facility] AllianceUrine Glucose (UA)2019-11-29 00:03:00* Test Item Value Reference Range Interpretation Comments Urine Glucose (UA) (test code = 2349-9) NEGATIVE NEGATIVE [facility] AllianceUrine Xqtcyiz0784-90-54 00:03:00* Test Item Value Reference Range Interpretation Comments Urine Ketones (test code = 16728-9) NEGATIVE NEGATIVE [facility] AllianceUrine Ewdqzriwmsws3195-43-70 00:03:00* Test Item Value Reference Range Interpretation Comments Urine Urobilinogen (test code = 03399-1) 0.2 0.2-1 [facility] AllianceUrine Vtltttflr0577-64-07 00:03:00* Test Item Value Reference Range Interpretation Comments Urine Bilirubin (test code = 1978-6) NEGATIVE NEGATIVE [facility] AllianceUrine Fwztq1798-21-86 00:03:00* Test Item Value Reference Range Interpretation Comments Urine Blood (test code = 39455-4) NEGATIVE NEGATIVE [facility] AllianceCHEST SINGLE (PORTABLE)2019-11-28 23:54:00 [facility] [address] [place] [address] Patient Name: CHRISTIANO BAUTISTA MR #: [id number] : 1940 Age/Sex: 79/F Req #: [id number] Adm Physician: Ordered by: GRECIA GARCIA DO Report #: [id number] Location: ER Room/Bed: Procedure: [id number] DX /CHEST SINGLE (PORTABLE) Exam Date: 11/28/19 [...] 11:55 PM Dictated By: MORALES LI DO 3706 Transcribed By: AXEL on 11/28/19 COPY TO: GRECIA GARCIA DO Influenza Virus Types A,B Vryrgmg1641-56-58 22:55:00* Test Item Value Reference Range Interpretation Comments Influenza Virus Types A,B Antigen (test code = 96908-4) NEGATIVE NEGATIVE [facility] AllianceCreatine Bqjicu4569-04-78 22:35:00* Test Item Value Reference Range Interpretation Comments Creatine Kinase (test code = 2157-6) 37 29-168 [facility] AllianceCreatine Kinase UK9020-13-61 22:35:00* Test Item Value Reference Range Interpretation Comments Creatine Kinase MB (test code = 07998-9) 1.40 0-5.0 [facility] AllianceTroponin [id number] 22:35:00* Test Item Value Reference Range Interpretation Comments Troponin I (test code = 25563-6) < 0.001 0-0.300 [facility] AllianceBREAST ULTRASOUND KSSQERQVZ5189-39-32 09:25:17- BREAST ULTRASOUND BILATERALULTRASOUND OF BOTH BREASTS AND BOTH AXILLA: 06/16/2019CLINICAL: Supplemental Screening for Dense Breast. Comparison is made to exams dated 05/19/2019 mammogram, 04/24/2016 mammogram, 05/09/2015 mammogram, and 05/09/2015 ultrasound - [facility]. Real-time ultrasound of both breasts [...] in 1 year.Stephany Ramsey M.D. dm/:06/17/2019 09:25:17 Binder Selector: Dory Clemente FW, [facility] sent: BIRADS 1-2 Combo FU Letter Ultrasound BI-RADS: 2 BenignSCR MAMM BILATERAL LORENA CAD EBOVBJV3201-10-93 18:03:23 - SCR MAMM BILATERAL LORENA CAD DIGITALBILATERAL DIGITAL SCREENING MAMMOGRAM 3D/2D WITH CAD: 05/19/2019CLINICAL: Asymptomatic. Digital breast tomosynthesis was performed in addition to routine CC and MLO views. Current mammographic images were evaluated by either a [employer] M-Vu or a [employer] ImageChecker CAD (computer aided detection system). Comparison is made to exams dated 04/24/2016 mammogram, 04/23/2015 mammogram, and 04/20/2014 mammogram - [facility]. The tissue of both breasts [...] in one year. [facility] goetz/scooter:05/20/2019 18: 03:23 Binder Selector: Regina Saul FW, [facility] r sent: BIRADS 1-2 Normal Mammogram BI-RADS: 2 Benign
--- NOTE | 2020-02-02 11:40 | NUR ---
PT ARRIVED TO UNIT VIA STRETCHER, RESP EVEN AND UNLABORED AT THIS TIME, PT HAS NO C/O PAIN WHEN ASKED, PT ORIENTED TO ROOM AND CALL LIGHT , BED IN LOWEST POSITION AT THIS TIME, BED RAILS UP X2, CALL LIGHT IN REACH WILL CONT TO MONITOR.
[2020-02-02 12:25] VITALS: BP 115/70
[2020-02-02 12:58] VITALS: BP 115/70
[2020-02-02] MEDS: SODIUM CHLORIDE 0.9% 1000ML 1,000 ML IV SCH (13:19)
[2020-02-02] MEDS ORDERED: MELATONIN3 MG PO (13:30)
[2020-02-02] MEDS ORDERED: CLARITIN10 MG PO (13:35)
[2020-02-02] MEDS ORDERED: PREDNISOLON5 MG/5 ML PO (13:38)
[2020-02-02] MEDS ORDERED: LORAZEPAM2 MG/1 M1 IVP (13:38)
[2020-02-02] MEDS ORDERED: ZOLPIDEM TARTRAT5 MG PO (13:40)
[2020-02-02] MEDS ORDERED: STRESS RELIEF (13:42)
[2020-02-02 14:25] LABS: BASOPHILS % 0.4 % (0.0-1.0); EOSINOPHILS % 0.4 % (0.0-6.0); HEMATOCRIT 27.6 % (34.2-44.1); HEMOGLOBIN 9.1 g/dL (12.0-16.0); LYMPHOCYTES # (AUTO) 0.6 (1.0-3.2); LYMPHOCYTES % 13.5 % (18.0-39.1); MEAN CORPUSCULAR HEMOGLOBIN 25.3 pg (28-32); MEAN CORPUSCULAR VOLUME 76.7 fL (81-99); MONOCYTES # (AUTO) 0.4 (0.2-0.8); MONOCYTES % 7.9 % (4.4-11.3); NEUTROPHILS # (AUTO) 3.5 (2.1-6.9); NEUTROPHILS % 77.6 % (38.7-80.0); PLATELET COUNT 366 x10e3/uL (140-360); RED CELL DISTRIBUTION WIDTH 15.2 % (11.7-14.4)
[2020-02-02 14:47] LABS: ALANINE AMINOTRANSFERASE 13 IU/L (0-55); ALBUMIN 3.3 g/dL (3.5-5.0); ALBUMIN/GLOBULIN RATIO 0.8 (0.8-2.0); ALKALINE PHOSPHATASE 74 IU/L (40-150); BLOOD UREA NITROGEN 13 mg/dL (7-26); BUN/CREATININE RATIO 18 (6-25); CALCIUM 8.6 mg/dL (8.4-10.2); CARBON DIOXIDE 24 mmol/L (22-29); CHLORIDE 89 mmol/L (98-107); CREATININE, SERUM 0.72 mg/dL (0.57-1.11); EST GLOMERULAR FILTRATION RATE > 60 ML/MIN (60-); GLUCOSE 108 mg/dL (74-118); MAGNESIUM 1.9 MG/DL (1.3-2.1); SODIUM 121 mmol/L (136-145)
[2020-02-02 15:07] LABS: THYROID STIMULATING HORMONE 1.196 uIU/mL (0.350-4.940)
[2020-02-02 15:50] VITALS: BP 115/64
--- NOTE | 2020-02-02 19:28 | NUR ---
WALKING ROUNDS COMPLETE, REPORT GIVEN TO ONCOMING NURSE.
[2020-02-02 20:00] VITALS: BP 119/71
[2020-02-02 20:50] VITALS: BP 119/71
[2020-02-03] VITALS (10 sets, daily range): BP systolic 108–151; BP diastolic 59–78
[2020-02-03] MEDS: SODIUM CHLORIDE 0.9% 1000ML 1,000 ML IV SCH ×2 (01:48→15:43)
[2020-02-03] MEDS ORDERED: LORAZEPAM 0.5 MG TAB PO PRN (04:45)
[2020-02-03] MEDS ORDERED: ZOLPIDEM TARTRATE 5 MG TAB PO PRN (04:45)
[2020-02-03] MEDS ORDERED: MELATONIN 3 MG TAB PO PRN (04:45)
[2020-02-03] MEDS: GABAPENTIN 100 MG CAP PO SCH ×2 (05:50→16:06)
[2020-02-03 06:32] LABS: BASOPHILS % 0.6 % (0.0-1.0); EOSINOPHILS # (AUTO) 0.1 (0.0-0.4); EOSINOPHILS % 1.6 % (0.0-6.0); HEMATOCRIT 30.9 % (34.2-44.1); HEMOGLOBIN 9.9 g/dL (12.0-16.0); LYMPHOCYTES % 41.1 % (18.0-39.1); MEAN CORPUSCULAR HEMOGLOBIN 25.3 pg (28-32); MONOCYTES # (AUTO) 0.8 (0.2-0.8); MONOCYTES % 15.3 % (4.4-11.3); NEUTROPHILS % 41.2 % (38.7-80.0); PLATELET COUNT 407 x10e3/uL (140-360); RED BLOOD COUNT 3.91 x10e6/uL (3.6-5.1); RED CELL DISTRIBUTION WIDTH 15.5 % (11.7-14.4)
[2020-02-03 07:02] LABS: ALANINE AMINOTRANSFERASE 14 IU/L (0-55); ALBUMIN 3.4 g/dL (3.5-5.0); ALBUMIN/GLOBULIN RATIO 0.7 (0.8-2.0); ALKALINE PHOSPHATASE 70 IU/L (40-150); ANION GAP 12.6 mmol/L (8-16); BLOOD UREA NITROGEN 8 mg/dL (7-26); BUN/CREATININE RATIO 11 (6-25); CALCIUM 8.7 mg/dL (8.4-10.2); CARBON DIOXIDE 23 mmol/L (22-29); CHLORIDE 95 mmol/L (98-107); CREATININE, SERUM 0.74 mg/dL (0.57-1.11); EST GLOMERULAR FILTRATION RATE > 60 ML/MIN (60-); GLUCOSE 78 mg/dL (74-118); MAGNESIUM 1.7 MG/DL (1.3-2.1); POTASSIUM 3.6 mmol/L (3.5-5.1); SODIUM 127 mmol/L (136-145)
[2020-02-03] MEDS: LORATADINE 10 MG TAB PO SCH (08:42)
[2020-02-03] MEDS: AMLODIPINE BESYLATE 5 MG TAB PO SCH ×2 (08:42→16:06)
[2020-02-03] MEDS: LOSARTAN POTASSIUM 100 MG TAB PO SCH (08:42)
[2020-02-03] MEDS: PANTOPRAZOLE SOD 40 MG TABEC PO SCH ×2 (08:43→16:06)
--- NOTE | 2020-02-03 17:26 | NUR ---
PER PATIENT, SHE HAS NOT GOTTEN MUCH BETTER SINCE HER LAST ADMISSION FOR DIVERTICULITIS AND WOULD LIKE TO BE CHECKED AGAIN FOR ANY OTHER ONGOING PROBLEMS. SHE WILL TALK TO THE MD ABOUT IT NEXT TIME SHE SEES HIM.
[2020-02-04] VITALS (10 sets, daily range): BP systolic 116–139; BP diastolic 68–74
[2020-02-04] MEDS: GABAPENTIN 100 MG CAP PO SCH ×2 (04:45→16:45)
[2020-02-04] MEDS: SODIUM CHLORIDE 0.9% 1000ML 1,000 ML IV SCH ×2 (05:13→19:00)
[2020-02-04] MEDS ORDERED: DIATRIZOATE MEGL/DIATRIZOA SOD 30 ML BTL PO ONE (06:31)
[2020-02-04 07:28] LABS: BASOPHILS % 0.5 % (0.0-1.0); EOSINOPHILS # (AUTO) 0.1 (0.0-0.4); EOSINOPHILS % 2.3 % (0.0-6.0); HEMATOCRIT 34.6 % (34.2-44.1); HEMOGLOBIN 10.8 g/dL (12.0-16.0); LYMPHOCYTES # (AUTO) 2.2 (1.0-3.2); LYMPHOCYTES % 38.5 % (18.0-39.1); MEAN CORPUSCULAR HEMOGLOBIN 25.3 pg (28-32); MEAN CORPUSCULAR HGB CONC 31.2 g/dL (31-35); MONOCYTES # (AUTO) 0.8 (0.2-0.8); MONOCYTES % 13.5 % (4.4-11.3); NEUTROPHILS # (AUTO) 2.6 (2.1-6.9); PLATELET COUNT 401 x10e3/uL (140-360); RED BLOOD COUNT 4.27 x10e6/uL (3.6-5.1)
[2020-02-04 07:40] LABS: ALANINE AMINOTRANSFERASE 15 IU/L (0-55); ALBUMIN 3.3 g/dL (3.5-5.0); ALBUMIN/GLOBULIN RATIO 0.7 (0.8-2.0); ALKALINE PHOSPHATASE 67 IU/L (40-150); ANION GAP 11.6 mmol/L (8-16); BLOOD UREA NITROGEN 7 mg/dL (7-26); BUN/CREATININE RATIO 10 (6-25); CALCIUM 8.8 mg/dL (8.4-10.2); CARBON DIOXIDE 21 mmol/L (22-29); CHLORIDE 103 mmol/L (98-107); CREATININE, SERUM 0.73 mg/dL (0.57-1.11); EST GLOMERULAR FILTRATION RATE > 60 ML/MIN (60-); GLUCOSE 87 mg/dL (74-118); POTASSIUM 3.6 mmol/L (3.5-5.1); SODIUM 132 mmol/L (136-145)
[2020-02-04] MEDS: LORATADINE 10 MG TAB PO SCH (09:39)
[2020-02-04] MEDS: LOSARTAN POTASSIUM 100 MG TAB PO SCH (09:40)
[2020-02-04] MEDS: PANTOPRAZOLE SOD 40 MG TABEC PO SCH ×2 (09:40→16:45)
[2020-02-04] MEDS: AMLODIPINE BESYLATE 5 MG TAB PO SCH ×2 (09:40→16:45)
[2020-02-05] VITALS: BP 110/66
--- NOTE | 2020-02-05 03:50 | Diagnostic Imaging Report ---
EXAM: CT Abdomen and Pelvis WITHOUT contrast INDICATION: Abdominal pain, abscess COMPARISON: Abdominal CT 12/05/2019, 11/28/2019 TECHNIQUE: Abdomen and pelvis were scanned utilizing a multidetector helical scanner from the lung base to the pubic symphysis without administration of IV contrast. Absence of intravenous contrast decreases sensitivity for detection of focal lesions and vascular pathology. Coronal and sagittal reformations were obtained. Routine protocol was performed. IV CONTRAST: None ORAL CONTRAST: None COMPLICATIONS: None RADIATION DOSE: Total DLP: 244 ... mGy*cm Estimated effective dose: (DLP x 0.015 x size factor) mSv CTDIvol has been reviewed. It is below the limits set by the Radiation Protocol Committee (RPC). Dose modulation, iterative reconstruction, and/or weight based adjustment of the mA/kV was utilized to reduce the radiation dose to as low as reasonably achievable. FINDINGS: LINES and TUBES: None. LOWER THORAX: Unremarkable HEPATOBILIARY: Stable right hepatic lobe 0.8 cm hypodensity. No biliary ductal dilation. GALLBLADDER: There are cholecystectomy clips. SPLEEN: No splenomegaly. PANCREAS: No focal masses or ductal dilatation. ADRENALS: No adrenal nodules KIDNEYS/URETERS: No hydronephrosis. No cystic or solid mass lesions. No stones. GI TRACT: No abnormal distention, wall thickening, or evidence of bowel obstruction. Extensive colonic diverticulosis, worst in the sigmoid colon. No evidence of active acute diverticulitis. Moderate sliding gastric hiatal hernia. Ingested radiodense contrast in the small bowel, colon, and rectum. No appendicitis. Mild wall thickening of the left colon could be due to nonspecific colitis. PELVIC ORGANS/BLADDER: Hysterectomy. No adnexal masses. Urinary bladder unremarkable. LYMPH NODES: No lymphadenopathy. VESSELS: Arterial calcifications. PERITONEUM / RETROPERITONEUM: No free air or fluid. BONES: Degenerative changes in the spine and pelvis. Low bone mineral density. Unremarkable. SOFT TISSUES: Unremarkable. IMPRESSION: 1. Moderate sliding gastric hiatal hernia. 2. Extensive colonic diverticulosis, worst in the sigmoid colon. No evidence of active acute diverticulitis. 3. Mild wall thickening of the left colon could be due to nonspecific colitis. Signed by: Morales Jimenez DO on 02/05/2020 3:47 AM
[2020-02-05 04:00] VITALS: BP 114/71
[2020-02-05] MEDS: GABAPENTIN 100 MG CAP PO SCH (04:07)
[2020-02-05] MEDS: SODIUM CHLORIDE 0.9% 1000ML 1,000 ML IV SCH (07:40)
[2020-02-05 08:02] VITALS: BP 144/76
--- NOTE | 2020-02-05 08:04 | Discharge Summary ---
DISCHARGE DIAGNOSES: 1. Hyponatremia secondary to Prozac. 2. Hypertension. 3. Anxiety. 4. Hiatal hernia. 5. Abdominal pain secondary to colitis. HISTORY OF PRESENT ILLNESS AND HOSPITAL COURSE: See hospital chart for full details. The patient is a lady, who presented with outpatient laboratory studies showing severe hyponatremia with a sodium of 121 and her feeling really bad with some increasing abdominal pain. She was brought in and given IV fluids, discontinue Prozac, which was a new medication started and her sodium has improved significantly. Her left lower quadrant abdominal pain was evaluated by a CT scan that showed some mild colitis as well as having significant hiatal hernia, but she states she is eating fairly well at this time, so the patient really wanted to go home. She was feeling good, so she was discharged home with p.o. Cipro 500 mg b.i.d. for 10 days for the colitis and will follow up with me in about 8-10 days in the office to reassess the blood work. The patient understands there were not going to use any SSRI type medications for anxiety, so she will try things naturally at this moment. Please see hospital chart for full details. MD MAURILIO Lerma/LEONARD /[id number]
[2020-02-05] MEDS: LORATADINE 10 MG TAB PO SCH (08:19)
[2020-02-05] MEDS: PANTOPRAZOLE SOD 40 MG TABEC PO SCH (08:19)
[2020-02-05] MEDS: AMLODIPINE BESYLATE 5 MG TAB PO SCH (08:19)
[2020-02-05] MEDS: LOSARTAN POTASSIUM 100 MG TAB PO SCH (08:19)
[2020-02-05 08:21] VITALS: BP 144/76
== END 2020-02-05 08:51 | disposition home or self-care (01) | DRG 641 ==
LOC: MED/SURG2 11:18 → UNDOADMIN 11:18 → MED/SURG2 11:32
PROVIDERS: ADMIT Internal Medicine; ATTEND Internal Medicine
DX: E87.1 Hypo-osmolality and hyponatremia (principal); T43.225A Adverse effect of selective serotonin reuptake inhibitors, initial encounter; K52.9 Noninfective gastroenteritis and colitis, unspecified; K44.9 Diaphragmatic hernia without obstruction or gangrene; F41.9 Anxiety disorder, unspecified; I10 Essential (primary) hypertension; K21.9 Gastro-esophageal reflux disease without esophagitis
CPT/HCPCS: 36415; 74176; 80053; 83735; 84443; 85025; 87635; 96361; J7030

== ENCOUNTER 2021-03-07 12:36 | Emergency (ER) | payer MEDICARE, OTHER ==
[~2021-03-07] VITALS: Ht 160 cm; Wt 56.2 kg
[~2021-03-07 12:36] MED LIST changes: +CLARITIN10 MG PO; +LORAZEPAM2 MG/1 M1 IVP; +MELATONIN3 MG PO; +PREDNISOLON5 MG/5 ML PO; +STRESS RELIEF; +ZOLPIDEM TARTRAT5 MG PO
[2021-03-07] MEDS ORDERED: ONDANSETRON HCL INJ 2MG/ML 2ML 2 MG/ML VIAL IV STA (12:42)
[2021-03-07] MEDS ORDERED: SODIUM CHLORIDE 0.9% 1000ML 1,000 ML IV STA (12:42)
[2021-03-07] MEDS ORDERED: MORPHINE SULFATE INJ 4 MG/ML INJ 1ML IV PRN (12:45)
[2021-03-07 12:57] LABS: BASOPHILS # (AUTO) 0.1 (0.0-0.1); BASOPHILS % 0.6 % (0.0-1.0); EOSINOPHILS # (AUTO) 0.1 (0.0-0.4); EOSINOPHILS % 1.6 % (0.0-6.0); HEMATOCRIT 44.6 % (34.2-44.1); HEMOGLOBIN 14.2 g/dL (12.0-16.0); LYMPHOCYTES # (AUTO) 1.7 (1.0-3.2); LYMPHOCYTES % 21.9 % (18.0-39.1); MEAN CORPUSCULAR HEMOGLOBIN 27.8 pg (28-32); MEAN CORPUSCULAR HGB CONC 31.8 g/dL (31-35); MEAN CORPUSCULAR VOLUME 87.5 fL (81-99); MONOCYTES # (AUTO) 0.7 (0.2-0.8); MONOCYTES % 9.2 % (4.4-11.3); NEUTROPHILS # (AUTO) 5.3 (2.1-6.9); NEUTROPHILS % 66.3 % (38.7-80.0); PLATELET COUNT 355 x10e3/uL (140-360); RED CELL DISTRIBUTION WIDTH 13.9 % (11.7-14.4)
[2021-03-07] MEDS ORDERED: FENTANYL CITRATE/PF 100MCG/2 ML INJ IV ONE (13:00)
[2021-03-07 13:04] LABS: CLARITY,URINE CLEAR (CLEAR); COLOR,URINE YELLOW (YELLOW); KETONES,URINE 1+ (NEGATIVE); LEUKOCYTE ESTERASE ,URINE NEGATIVE (NEGATIVE); NITRITE,URINE NEGATIVE (NEGATIVE); PROTEIN,URINE DIPSTICK TRACE (NEGATIVE); URINE UROBILINOGEN 0.2 mg/dL (0.2 - 1)
[2021-03-07 13:20] LABS: ALANINE AMINOTRANSFERASE 17 IU/L (0-55); ALBUMIN 4.5 g/dL (3.5-5.0); ALBUMIN/GLOBULIN RATIO 0.8 (0.8-2.0); ALKALINE PHOSPHATASE 117 IU/L (40-150); BLOOD UREA NITROGEN 12 mg/dL (7-26); BUN/CREATININE RATIO 12 (6-25); CALCIUM 10.1 mg/dL (8.4-10.2); CREATINE KINASE 76 IU/L (29-168); CREATININE, SERUM 1.04 mg/dL (0.57-1.11); EST GLOMERULAR FILTRATION RATE 51 ML/MIN (60-); GLUCOSE 102 mg/dL (74-118)
[2021-03-07 13:32] LABS: BACTERIA,URINE RARE /HPF; EPITHELIAL CELLS,URINE FEW /LPF; WBC,URINE (MAN) 0-5 /HPF (0-5)
[2021-03-07 13:34] LABS: ANION GAP 15.8 mmol/L (8-16); CARBON DIOXIDE 26 mmol/L (22-29); CHLORIDE 95 mmol/L (98-107); POTASSIUM 3.8 mmol/L (3.5-5.1); SODIUM 133 mmol/L (136-145)
[2021-03-07] MEDS ORDERED: ZOFRAN4 MG SL (14:18)
[2021-03-07] MEDS ORDERED: DICYCLOMINE HCL20 MG PO (14:18)
[2021-03-07] MEDS ORDERED: PANTOPRAZOLE SO40 MG PO (14:18)
[2021-03-07] MEDS ORDERED: IOPAMIDOL 370 MG/ML 200 ML INFUS..BTL INJ ONE (14:52)
== END 2021-03-07 14:57 | disposition home or self-care (01) ==
LOC: ER 12:42
DX: R10.32 Left lower quadrant pain (principal); R11.2 Nausea with vomiting, unspecified; K57.90 Diverticulosis of intestine, part unspecified, without perforation or abscess without bleeding; K44.9 Diaphragmatic hernia without obstruction or gangrene
CPT/HCPCS: 36415; 71045; 74177; 80053; 81001; 82550; 82553; 83690; 84484; 85025; 99284; J2405; J3010; J7030; Q9967

== ENCOUNTER 2022-01-08 17:22 | Emergency (ER) | payer MEDICARE, OTHER ==
[~2022-01-08] VITALS: Ht 160 cm; Wt 56.2 kg
[~2022-01-08 17:22] MED LIST changes: +DICYCLOMINE HCL20 MG PO; +PANTOPRAZOLE SO40 MG PO; +ZOFRAN4 MG SL
[2022-01-08] MEDS ORDERED: SODIUM CHLORIDE 0.9% 1000ML 1,000 ML IV STA ×2 (17:32→19:43)
[2022-01-08] MEDS ORDERED: ACETAMINOPHEN 325 MG TAB PO STA (17:32)
[2022-01-08 18:18] LABS: CLARITY,URINE CLEAR (CLEAR); COLOR,URINE YELLOW (YELLOW); KETONES,URINE 1+ (NEGATIVE); LEUKOCYTE ESTERASE ,URINE NEGATIVE (NEGATIVE); NITRITE,URINE NEGATIVE (NEGATIVE); PROTEIN,URINE DIPSTICK NEGATIVE (NEGATIVE); URINE UROBILINOGEN 0.2 mg/dL (0.2 - 1)
[2022-01-08 18:32] LABS: BACTERIA,URINE RARE /HPF; EPITHELIAL CELLS,URINE RARE /LPF; WBC,URINE (MAN) 0-5 /HPF (0-5)
[2022-01-08 18:34] LABS: BASOPHILS % 0.2 % (0.0-1.0); EOSINOPHILS % 0.2 % (0.0-6.0); HEMATOCRIT 38.4 % (34.2-44.1); HEMOGLOBIN 12.7 g/dL (12.0-16.0); LYMPHOCYTES # (AUTO) 0.8 (1.0-3.2); MEAN CORPUSCULAR HEMOGLOBIN 29.3 pg (28-32); MEAN CORPUSCULAR HGB CONC 33.1 g/dL (31-35); MEAN CORPUSCULAR VOLUME 88.5 fL (81-99); MONOCYTES # (AUTO) 0.9 (0.2-0.8); MONOCYTES % 7.1 % (4.4-11.3); NEUTROPHILS % 86.1 % (38.7-80.0); PLATELET COUNT 400 x10e3/uL (140-360); RED BLOOD COUNT 4.34 x10e6/uL (3.6-5.1); RED CELL DISTRIBUTION WIDTH 12.2 % (11.7-14.4)
[2022-01-08 18:49] LABS: CREATINE KINASE 50 IU/L (29-168)
[2022-01-08 18:51] LABS: ALBUMIN 3.7 g/dL (3.5-5.0); ALBUMIN/GLOBULIN RATIO 0.7 (0.8-2.0); ANION GAP 15.8 mmol/L (8-16); CALCIUM 9.1 mg/dL (8.4-10.2); CREATININE, SERUM 0.78 mg/dL (0.57-1.11)
[2022-01-08 18:53] LABS: POTASSIUM 2.8 mmol/L (3.5-5.1)
[2022-01-08] MEDS ORDERED: POTASSIUM CHLORIDE 10MEQ EA PO STA (18:53)
[2022-01-08] MEDS ORDERED: AUGMENTIN 500-1 EACH PO (20:47)
[2022-01-08 21:10] VITALS: BP 119/71
== END 2022-01-08 21:05 | disposition home or self-care (01) ==
LOC: ER 17:30
DX: R50.9 Fever, unspecified (principal); E87.6 Hypokalemia; R59.1 Generalized enlarged lymph nodes; I10 Essential (primary) hypertension; I48.91 Unspecified atrial fibrillation; D64.9 Anemia, unspecified; F41.9 Anxiety disorder, unspecified; K21.9 Gastro-esophageal reflux disease without esophagitis; H40.9 Unspecified glaucoma; R94.31 Abnormal electrocardiogram [ECG] [EKG]; Z20.822 Contact with and (suspected) exposure to COVID-19
CPT/HCPCS: 36415; 71045; 80053; 81001; 82550; 82553; 83518; 83605; 84484; 85025; 87040; 87070; 93005; 99284; J2543; J7030; U0002

== ENCOUNTER 2024-04-05 22:53 | Inpatient (IN) | payer MEDICARE, OTHER ==
[~2024-04-05] VITALS: Ht 157.5 cm; Wt 52.2 kg
[~2024-04-05 22:53] MED LIST changes: +ATIVAN0.5 MG PO; +AUGMENTIN 500-1 EACH PO; +B COMPLEX1 EACH PO; +FEROSUL325 MG PO
[2024-04-05 23:15] VITALS: TEMP 98.3
[2024-04-05 23:51] LABS: BASOPHILS % 0.4 % (0.0-1.0); EOSINOPHILS # (AUTO) 0.4 (0.0-0.4); EOSINOPHILS % 4.4 % (0.0-6.0); HEMATOCRIT 28.6 % (34.2-44.1); HEMOGLOBIN 8.9 g/dL (12.0-16.0); LYMPHOCYTES # (AUTO) 2.3 (1.0-3.2); LYMPHOCYTES % 23.9 % (18.0-39.1); MEAN CORPUSCULAR HEMOGLOBIN 27.6 pg (28-32); MEAN CORPUSCULAR HGB CONC 31.1 g/dL (31-35); MEAN CORPUSCULAR VOLUME 88.5 fL (81-99); MONOCYTES # (AUTO) 0.8 (0.2-0.8); MONOCYTES % 8.6 % (4.4-11.3); NEUTROPHILS # (AUTO) 5.9 (2.1-6.9); PLATELET COUNT 509 x10e3/uL (140-360); RED BLOOD COUNT 3.23 x10e6/uL (3.6-5.1); RED CELL DISTRIBUTION WIDTH 19.4 % (11.7-14.4); WHITE BLOOD COUNT 9.53 x10e3/uL (4.8-10.8)
[2024-04-06] VITALS (47 sets, daily range): BP systolic 116–177; BP diastolic 70–135; PULSE 88–124; RESP 14–37; TEMP 97.7–98.7; O2SAT 98–100
[2024-04-06] LABS: INR 0.81; PROTHROMBIN TIME 11.8 seconds (11.9-14.5)
[2024-04-06 00:01] LABS: ALBUMIN 3.5 g/dL (3.5-5.0); ALBUMIN/GLOBULIN RATIO 0.9 (0.8-2.0); ANION GAP 15.9 mmol/L (8-16); BILIRUBIN,TOTAL 0.2 mg/dL (0.2-1.2); CALCIUM 9.1 mg/dL (8.4-10.2); CREATININE, SERUM 0.77 mg/dL (0.57-1.11); PARTIAL THROMBOPLASTIN TIME 24.1 seconds (23.8-35.5); POTASSIUM 3.9 mmol/L (3.5-5.1); TOTAL PROTEIN 7.3 g/dL (6.5-8.1)
[2024-04-06] MEDS: SODIUM CHLORIDE 0.9% 1000ML 1,000 ML IV ONE ×2 (00:06→04:14)
[2024-04-06] MEDS ORDERED: IOPAMIDOL 370 MG/ML 100 ML INFUS..BTL INJ ONE ×2 (01:07→16:12)
[2024-04-06] MEDS: SODIUM CHLORIDE 0.9% 1000ML 1,000 ML IV SCH (03:15)
[2024-04-06 03:41] LABS: HEMOGLOBIN 6.9 g/dL (12.0-16.0)
[2024-04-06 03:42] LABS: HEMATOCRIT 22.2 % (34.2-44.1)
[2024-04-06] MEDS ORDERED: ZOLPIDEM TARTRATE 5 MG TAB PO PRN (03:45)
[2024-04-06] MEDS: SODIUM CHLORIDE 0.9% 250ML 250 ML IV ONE ×2 (04:43→06:11)
[2024-04-06] MEDS: OCTREOTIDE ACETATE 0.05 MG/ML AMP IV ONE (04:56)
[2024-04-06] MEDS: OCTREOTIDE ACETATE 500 MCG in SODIUM CHLORIDE 0.9% 250ML 249 ML IV SCH ×2 (04:56→19:44)
[2024-04-06] MEDS ORDERED: GUAIFENESIN/DEXTROMETHORPHAN LIQD 5 ML UDC PO PRN (05:00)
[2024-04-06] MEDS: GABAPENTIN 100 MG CAP PO SCH (09:00)
[2024-04-06] MEDS: MULTIVITAMINS/MINERALS TAB PO SCH (09:00)
[2024-04-06] MEDS: LORATADINE 10 MG TAB PO SCH (09:00)
[2024-04-06] MEDS ORDERED: HEPARIN SOD (PORCINE) 1000 UNIT/ML SDV ONE (10:30)
[2024-04-06] MEDS ORDERED: DESMOPRESSIN ACETATE 4 MCG/ML VIAL IV ONE (13:00)
[2024-04-06] MEDS ORDERED: LIDOCAINE HCL 1% LOCAL INJ 20 ML VIAL ONE (15:59)
[2024-04-06] MEDS ORDERED: SODIUM CHLORIDE 0.9% 500ML 500 ML ONE (15:59)
[2024-04-06] MEDS: ONDANSETRON HCL INJ 2MG/ML 2ML 2 MG/ML VIAL IV PRN (19:46)
[2024-04-06] MEDS: SODIUM CHLORIDE 0.9% 500ML 500 ML IV ONE (20:13)
[2024-04-06 20:44] LABS: HEMATOCRIT 30.2 % (34.2-44.1); HEMOGLOBIN 9.6 g/dL (12.0-16.0)
[2024-04-06] MEDS: ZOLPIDEM TARTRATE 5 MG TAB PO PRN (21:37)
[2024-04-06] MEDS: LORAZEPAM 0.5 MG TAB PO PRN (22:42)
[2024-04-06] MEDS: HYDRALAZINE HCL 20 MG/ML VIAL IV PRN (22:42)
[2024-04-07] VITALS (33 sets, daily range): BP systolic 108–180; BP diastolic 61–119; PULSE 76–113; RESP 13–36; TEMP 97.6–98.4; O2SAT 69–100
[2024-04-07] MEDS: DESMOPRESSIN ACETATE 4 MCG/ML VIAL IV ONE (02:16)
[2024-04-07 06:52] LABS: BASOPHILS % 0.4 % (0.0-1.0); EOSINOPHILS # (AUTO) 0.3 (0.0-0.4); EOSINOPHILS % 3.5 % (0.0-6.0); LYMPHOCYTES # (AUTO) 1.8 (1.0-3.2); LYMPHOCYTES % 19.1 % (18.0-39.1); MEAN CORPUSCULAR HEMOGLOBIN 27.5 pg (28-32); MEAN CORPUSCULAR HGB CONC 32.1 g/dL (31-35); MEAN CORPUSCULAR VOLUME 85.7 fL (81-99); MONOCYTES # (AUTO) 0.7 (0.2-0.8); MONOCYTES % 7.1 % (4.4-11.3); NEUTROPHILS # (AUTO) 6.5 (2.1-6.9); NEUTROPHILS % 69.5 % (38.7-80.0); PLATELET COUNT 376 x10e3/uL (140-360); RED CELL DISTRIBUTION WIDTH 18.6 % (11.7-14.4); WHITE BLOOD COUNT 9.32 x10e3/uL (4.8-10.8)
[2024-04-07 06:57] LABS: HEMOGLOBIN 7.7 g/dL (12.0-16.0)
[2024-04-07 07:14] LABS: ALBUMIN 2.4 g/dL (3.5-5.0); ALBUMIN/GLOBULIN RATIO 1.1 (0.8-2.0); ANION GAP 10.7 mmol/L (8-16); BILIRUBIN,TOTAL 0.4 mg/dL (0.2-1.2); CALCIUM 7.4 mg/dL (8.4-10.2); CREATININE, SERUM 0.6 mg/dL (0.57-1.11); MAGNESIUM 2.2 MG/DL (1.3-2.1); POTASSIUM 3.7 mmol/L (3.5-5.1); TOTAL PROTEIN 4.6 g/dL (6.5-8.1)
[2024-04-07] MEDS: CITRATE OF MAGNESIA 300ML BOTTLE PO ONE ×2 (07:50)
[2024-04-07] MEDS: BISACODYL 5 MG TAB EC PO ONE (07:51)
[2024-04-07] MEDS ORDERED: DESMOPRESSIN ACETATE 4 MCG/ML VIAL IV ONE (08:00)
[2024-04-07 08:19] LABS: INR 0.97; PROTHROMBIN TIME 13.6 seconds (11.9-14.5)
[2024-04-07] MEDS ORDERED: SODIUM CHLORIDE 0.9% 250ML 250 ML ONE ×2 (08:27→14:12)
[2024-04-07] MEDS: SODIUM CHLORIDE 0.9% 250ML 250 ML IV ONE ×2 (09:41→15:55)
[2024-04-07] MEDS ORDERED: ONDANSETRON HCL INJ 2MG/ML 2ML 2 MG/ML VIAL ONE (12:18)
[2024-04-07] MEDS ORDERED: SUCCINYLCHOLINE CHLORIDE 20 MG/ML 10ML VIAL ONE (12:18)
[2024-04-07] MEDS ORDERED: DEXAMETHASONE SOD PHOS INJ 4 MG/ML SDV ONE (12:18)
[2024-04-07] MEDS ORDERED: FENTANYL CITRATE/PF 100MCG/2 ML INJ ONE (12:19)
[2024-04-07 13:18] LABS: BASOPHILS % 0.4 % (0.0-1.0); EOSINOPHILS # (AUTO) 0.3 (0.0-0.4); EOSINOPHILS % 3.1 % (0.0-6.0); HEMATOCRIT 23.2 % (34.2-44.1); LYMPHOCYTES # (AUTO) 1.4 (1.0-3.2); LYMPHOCYTES % 16.8 % (18.0-39.1); MEAN CORPUSCULAR HEMOGLOBIN 26.7 pg (28-32); MEAN CORPUSCULAR HGB CONC 31.9 g/dL (31-35); MEAN CORPUSCULAR VOLUME 83.8 fL (81-99); MONOCYTES # (AUTO) 0.7 (0.2-0.8); MONOCYTES % 8.5 % (4.4-11.3); NEUTROPHILS # (AUTO) 5.9 (2.1-6.9); NEUTROPHILS % 70.6 % (38.7-80.0); PLATELET COUNT 265 x10e3/uL (140-360); RED BLOOD COUNT 2.77 x10e6/uL (3.6-5.1); RED CELL DISTRIBUTION WIDTH 18.4 % (11.7-14.4); WHITE BLOOD COUNT 8.39 x10e3/uL (4.8-10.8)
[2024-04-07 13:32] LABS: HEMOGLOBIN 7.5 g/dL (12.0-16.0)
[2024-04-07] MEDS ORDERED: EPINEPHRINE HCL 1:1000 1ML 1 MG/ML AMP ONE (15:21)
[2024-04-07] MEDS ORDERED: HYOSCYAMINE SULFATE 0.5 MG/ML INJ ONE (15:49)
[2024-04-07] MEDS: FUROSEMIDE INJ 10 MG/ML 2 ML VIAL IV ONE (17:31)
[2024-04-07 17:50] LABS: HEMATOCRIT 30.6 % (34.2-44.1); HEMOGLOBIN 9.9 g/dL (12.0-16.0)
[2024-04-07] MEDS: ACETAMINOPHEN 325 MG TAB PO PRN (19:04)
[2024-04-07] MEDS: ZOLPIDEM TARTRATE 10 MG TAB PO PRN (21:55)
[2024-04-08] VITALS (24 sets, daily range): BP systolic 106–161; BP diastolic 60–131; PULSE 58–92; RESP 13–31; TEMP 97.4–99; O2SAT 95–100
[2024-04-08 00:06] LABS: HEMATOCRIT 29.4 % (34.2-44.1); HEMOGLOBIN 9.8 g/dL (12.0-16.0)
[2024-04-08] MEDS: ARTIFICIAL TEARS (OPTH) 15 ML BTL OP PRN (06:31)
[2024-04-08 06:35] LABS: BASOPHILS % 0.3 % (0.0-1.0); EOSINOPHILS % 0.1 % (0.0-6.0); HEMATOCRIT 28.6 % (34.2-44.1); HEMOGLOBIN 9.4 g/dL (12.0-16.0); LYMPHOCYTES # (AUTO) 1.2 (1.0-3.2); MEAN CORPUSCULAR HEMOGLOBIN 27.5 pg (28-32); MEAN CORPUSCULAR HGB CONC 32.9 g/dL (31-35); MEAN CORPUSCULAR VOLUME 83.6 fL (81-99); MONOCYTES # (AUTO) 0.6 (0.2-0.8); MONOCYTES % 7.7 % (4.4-11.3); NEUTROPHILS # (AUTO) 5.3 (2.1-6.9); NEUTROPHILS % 74.2 % (38.7-80.0); PLATELET COUNT 240 x10e3/uL (140-360); RED BLOOD COUNT 3.42 x10e6/uL (3.6-5.1); RED CELL DISTRIBUTION WIDTH 17.5 % (11.7-14.4); WHITE BLOOD COUNT 7.18 x10e3/uL (4.8-10.8)
[2024-04-08 06:52] LABS: ALBUMIN 2.9 g/dL (3.5-5.0); ALBUMIN/GLOBULIN RATIO 1.1 (0.8-2.0); ANION GAP 11.7 mmol/L (8-16); BILIRUBIN,TOTAL 0.6 mg/dL (0.2-1.2); CALCIUM 7.9 mg/dL (8.4-10.2); CREATININE, SERUM 0.7 mg/dL (0.57-1.11); POTASSIUM 3.7 mmol/L (3.5-5.1); TOTAL PROTEIN 5.5 g/dL (6.5-8.1)
[2024-04-08] MEDS: PROMETHAZINE 12.5MG/ NACL 0.9% 12.5 MG/50 ML BAG IV PRN (10:52)
[2024-04-08 21:34] LABS: HEMATOCRIT 28.7 % (34.2-44.1); HEMOGLOBIN 9.4 g/dL (12.0-16.0)
[2024-04-09] VITALS (11 sets, daily range): BP systolic 115–179; BP diastolic 66–117; PULSE 64–93; RESP 13–22; TEMP 97.8–98.6; O2SAT 96–100
[2024-04-09 10:04] LABS: HEMATOCRIT 28.6 % (34.2-44.1); HEMOGLOBIN 9.5 g/dL (12.0-16.0)
[2024-04-09 10:24] LABS: % IRON SATURATION 11 % (15-50); IRON 26 ug/dL (50-170); TOTAL IRON BINDING CAPACITY 241 ug/dL (261-478); TRANSFERRIN 172 mg/dL (180-382)
[2024-04-10] VITALS (7 sets, daily range): BP systolic 143–164; BP diastolic 79–87; PULSE 78–91; RESP 17–18; TEMP 97.8–98.6; O2SAT 98–100
[2024-04-10 06:56] LABS: BASOPHILS % 0.3 % (0.0-1.0); EOSINOPHILS # (AUTO) 0.2 (0.0-0.4); EOSINOPHILS % 3.3 % (0.0-6.0); HEMATOCRIT 31.5 % (34.2-44.1); HEMOGLOBIN 10.1 g/dL (12.0-16.0); MEAN CORPUSCULAR HEMOGLOBIN 27.4 pg (28-32); MEAN CORPUSCULAR HGB CONC 32.1 g/dL (31-35); MEAN CORPUSCULAR VOLUME 85.6 fL (81-99); MONOCYTES # (AUTO) 0.7 (0.2-0.8); NEUTROPHILS # (AUTO) 5.4 (2.1-6.9); PLATELET COUNT 321 x10e3/uL (140-360); RED BLOOD COUNT 3.68 x10e6/uL (3.6-5.1); RED CELL DISTRIBUTION WIDTH 17.4 % (11.7-14.4); WHITE BLOOD COUNT 7.37 x10e3/uL (4.8-10.8)
[2024-04-10] MEDS ORDERED: IRON SUCROSE 100 MG in SODIUM CHLORIDE 0.9% 100 ML IV SCH (09:00)
[2024-04-10] MEDS: SODIUM FERRIC GLUCONATE COMPLX 125 MG in SODIUM CHLORIDE 0.9% 100 ML IV SCH (10:03)
[2024-04-11] VITALS (9 sets, daily range): BP systolic 149–168; BP diastolic 78–94; PULSE 76–81; RESP 16–19; TEMP 97.9–98.6; O2SAT 98–100
[2024-04-11 06:56] LABS: BASOPHILS % 0.3 % (0.0-1.0); EOSINOPHILS # (AUTO) 0.3 (0.0-0.4); EOSINOPHILS % 5.6 % (0.0-6.0); HEMATOCRIT 29.3 % (34.2-44.1); HEMOGLOBIN 9.5 g/dL (12.0-16.0); LYMPHOCYTES # (AUTO) 1.3 (1.0-3.2); LYMPHOCYTES % 21.5 % (18.0-39.1); MEAN CORPUSCULAR HEMOGLOBIN 28.1 pg (28-32); MEAN CORPUSCULAR HGB CONC 32.4 g/dL (31-35); MEAN CORPUSCULAR VOLUME 86.7 fL (81-99); MONOCYTES # (AUTO) 0.8 (0.2-0.8); MONOCYTES % 13.7 % (4.4-11.3); NEUTROPHILS # (AUTO) 3.4 (2.1-6.9); NEUTROPHILS % 58.6 % (38.7-80.0); PLATELET COUNT 356 x10e3/uL (140-360); RED BLOOD COUNT 3.38 x10e6/uL (3.6-5.1); RED CELL DISTRIBUTION WIDTH 17.8 % (11.7-14.4); WHITE BLOOD COUNT 5.86 x10e3/uL (4.8-10.8)
[2024-04-11 07:16] LABS: ALBUMIN 2.5 g/dL (3.5-5.0); ALBUMIN/GLOBULIN RATIO 0.9 (0.8-2.0); ALKALINE PHOSPHATASE 60 IU/L (40-150); ANION GAP 9.3 mmol/L (8-16); BILIRUBIN,TOTAL 0.3 mg/dL (0.2-1.2); BLOOD UREA NITROGEN 6 mg/dL (7-26); BUN/CREATININE RATIO 10 (6-25); CALCIUM 8.1 mg/dL (8.4-10.2); CARBON DIOXIDE 25 mmol/L (22-29); CHLORIDE 104 mmol/L (98-107); CREATININE, SERUM 0.63 mg/dL (0.57-1.11); EST GLOMERULAR FILTRATION RATE 89 ML/MIN (>=60); GLUCOSE 108 mg/dL (74-118); MAGNESIUM 1.6 MG/DL (1.3-2.1); SODIUM 135 mmol/L (136-145); TOTAL PROTEIN 5.2 g/dL (6.5-8.1)
[2024-04-11 07:18] LABS: ALANINE AMINOTRANSFERASE < 6 IU/L (0-55); POTASSIUM 3.3 mmol/L (3.5-5.1)
[2024-04-12] VITALS (13 sets, daily range): BP systolic 132–182; BP diastolic 82–91; PULSE 73–105; RESP 16–19; TEMP 98–99.2; O2SAT 100
[2024-04-12 06:07] LABS: BASOPHILS % 0.4 % (0.0-1.0); EOSINOPHILS # (AUTO) 0.4 (0.0-0.4); EOSINOPHILS % 5.4 % (0.0-6.0); HEMATOCRIT 29.3 % (34.2-44.1); HEMOGLOBIN 9.2 g/dL (12.0-16.0); LYMPHOCYTES # (AUTO) 1.3 (1.0-3.2); LYMPHOCYTES % 17.1 % (18.0-39.1); MEAN CORPUSCULAR HEMOGLOBIN 27.4 pg (28-32); MEAN CORPUSCULAR HGB CONC 31.4 g/dL (31-35); MEAN CORPUSCULAR VOLUME 87.2 fL (81-99); MONOCYTES # (AUTO) 0.8 (0.2-0.8); MONOCYTES % 10.6 % (4.4-11.3); NEUTROPHILS # (AUTO) 4.9 (2.1-6.9); PLATELET COUNT 333 x10e3/uL (140-360); RED BLOOD COUNT 3.36 x10e6/uL (3.6-5.1); RED CELL DISTRIBUTION WIDTH 17.7 % (11.7-14.4); WHITE BLOOD COUNT 7.43 x10e3/uL (4.8-10.8)
[2024-04-12 06:42] LABS: ALBUMIN 2.5 g/dL (3.5-5.0); ANION GAP 9.3 mmol/L (8-16); BILIRUBIN,TOTAL 0.3 mg/dL (0.2-1.2); CALCIUM 8.2 mg/dL (8.4-10.2); CREATININE, SERUM 0.64 mg/dL (0.57-1.11); TOTAL PROTEIN 5.1 g/dL (6.5-8.1)
[2024-04-12 06:44] LABS: POTASSIUM 3.3 mmol/L (3.5-5.1)
[2024-04-13] VITALS (12 sets, daily range): BP systolic 121–174; BP diastolic 71–91; PULSE 70–98; RESP 16–18; TEMP 97.6–99.2; O2SAT 98–100
[2024-04-13] MEDS ORDERED: SODIUM CHLORIDE 0.9% 0 ML ONE (08:55)
[2024-04-13] MEDS: PANTOPRAZOLE SOD 40 MG TABEC PO SCH (09:08)
[2024-04-13] MEDS: MAGNESIUM/ALUMINUM/SIMETHICONE 30 ML UDC PO PRN (10:19)
[2024-04-13 12:05] LABS: BASOPHILS % 0.5 % (0.0-1.0); EOSINOPHILS # (AUTO) 0.3 (0.0-0.4); EOSINOPHILS % 3.9 % (0.0-6.0); HEMATOCRIT 28.2 % (34.2-44.1); LYMPHOCYTES # (AUTO) 1.1 (1.0-3.2); LYMPHOCYTES % 12.8 % (18.0-39.1); MEAN CORPUSCULAR HGB CONC 31.9 g/dL (31-35); MEAN CORPUSCULAR VOLUME 87.9 fL (81-99); MONOCYTES # (AUTO) 0.8 (0.2-0.8); MONOCYTES % 9.2 % (4.4-11.3); NEUTROPHILS # (AUTO) 6.2 (2.1-6.9); NEUTROPHILS % 73.1 % (38.7-80.0); PLATELET COUNT 424 x10e3/uL (140-360); RED BLOOD COUNT 3.21 x10e6/uL (3.6-5.1); RED CELL DISTRIBUTION WIDTH 18.2 % (11.7-14.4); WHITE BLOOD COUNT 8.49 x10e3/uL (4.8-10.8)
[2024-04-14] VITALS (10 sets, daily range): BP systolic 106–161; BP diastolic 71–95; PULSE 75–105; RESP 16–20; TEMP 97.8–99; O2SAT 98–100
[2024-04-14 05:39] LABS: BASOPHILS % 0.3 % (0.0-1.0); EOSINOPHILS # (AUTO) 0.3 (0.0-0.4); EOSINOPHILS % 4.4 % (0.0-6.0); HEMATOCRIT 31.8 % (34.2-44.1); LYMPHOCYTES # (AUTO) 1.6 (1.0-3.2); MEAN CORPUSCULAR HEMOGLOBIN 27.8 pg (28-32); MEAN CORPUSCULAR HGB CONC 31.4 g/dL (31-35); MEAN CORPUSCULAR VOLUME 88.3 fL (81-99); MONOCYTES # (AUTO) 0.8 (0.2-0.8); MONOCYTES % 10.8 % (4.4-11.3); NEUTROPHILS % 64.1 % (38.7-80.0); PLATELET COUNT 514 x10e3/uL (140-360); RED CELL DISTRIBUTION WIDTH 18.4 % (11.7-14.4)
[2024-04-14 06:21] LABS: ALBUMIN 2.8 g/dL (3.5-5.0); ALBUMIN/GLOBULIN RATIO 0.9 (0.8-2.0); ALKALINE PHOSPHATASE 65 IU/L (40-150); ANION GAP 12.3 mmol/L (8-16); BILIRUBIN,TOTAL 0.5 mg/dL (0.2-1.2); BLOOD UREA NITROGEN 9 mg/dL (7-26); BUN/CREATININE RATIO 13 (6-25); CALCIUM 8.3 mg/dL (8.4-10.2); CARBON DIOXIDE 22 mmol/L (22-29); CHLORIDE 105 mmol/L (98-107); CREATININE, SERUM 0.69 mg/dL (0.57-1.11); EST GLOMERULAR FILTRATION RATE 87 ML/MIN (>=60); GLUCOSE 99 mg/dL (74-118); MAGNESIUM 1.7 MG/DL (1.3-2.1); SODIUM 136 mmol/L (136-145); TOTAL PROTEIN 5.8 g/dL (6.5-8.1)
[2024-04-14 06:26] LABS: ALANINE AMINOTRANSFERASE < 6 IU/L (0-55); POTASSIUM 3.3 mmol/L (3.5-5.1)
[2024-04-14] MEDS: POTASSIUM CHLORIDE 20 MEQ TAB CR PO ONE (08:52)
[2024-04-14] MEDS: MELATONIN 3 MG TAB PO PRN (20:20)
[2024-04-15] VITALS: BP 113/67; PULSE 60; RESP 20; TEMP 98.1; O2SAT 99
[2024-04-15 04:00] VITALS: BP 153/85; PULSE 70; RESP 20; TEMP 97.6; O2SAT 99
[2024-04-15 08:00] VITALS: BP 162/81; PULSE 78; RESP 18; TEMP 98.8; O2SAT 100
[2024-04-15 09:04] VITALS: BP 162/81; PULSE 78; RESP 18; TEMP 98.8; O2SAT 100
[2024-04-15 10:18] LABS: BILIRUBIN,URINE NEGATIVE (NEGATIVE); CLARITY,URINE TURBID (CLEAR); COLOR,URINE YELLOW (YELLOW); GLUCOSE, URINE NEGATIVE (NEGATIVE); KETONES,URINE NEGATIVE (NEGATIVE); LEUKOCYTE ESTERASE ,URINE LARGE (NEGATIVE); NITRITE,URINE NEGATIVE (NEGATIVE); PH,URINE 7 (5 - 7); PROTEIN,URINE DIPSTICK 1+ (NEGATIVE); URINE UROBILINOGEN 0.2 mg/dL (0.2 - 1)
[2024-04-15 10:30] LABS: WBC,URINE (MAN) >50 /HPF (0-5)
[2024-04-15 10:31] LABS: BACTERIA,URINE MODERATE /HPF; EPITHELIAL CELLS,URINE MODERATE /LPF
[2024-04-15 11:25] VITALS: BP 166/81; PULSE 80; RESP 18; TEMP 98.6; O2SAT 99
== END 2024-04-15 14:20 | disposition home or self-care (01) | DRG 378 ==
LOC: ER 22:59 → ERHOLD 04-06 03:13 → ICU 04-06 04:38 → MED/SURG3 04-09 11:20
PROVIDERS: ADMIT Internal Medicine; ATTEND Internal Medicine
PROC: 30233N1 Transfusion of Nonautologous Red Blood Cells into Peripheral Vein, Percutaneous Approach (ICD-10-PCS; 2024-04-06)
PROC: 30233K1 Transfusion of Nonautologous Frozen Plasma into Peripheral Vein, Percutaneous Approach (ICD-10-PCS; 2024-04-07)
PROC: 0W3P8ZZ Control Bleeding in Gastrointestinal Tract, Via Natural or Artificial Opening Endoscopic (ICD-10-PCS; principal; 2024-04-07 15:26)
DX: K57.31 Diverticulosis of large intestine without perforation or abscess with bleeding (principal); D62 Acute posthemorrhagic anemia; E87.1 Hypo-osmolality and hyponatremia; I10 Essential (primary) hypertension; I48.91 Unspecified atrial fibrillation; K21.9 Gastro-esophageal reflux disease without esophagitis; H40.9 Unspecified glaucoma; K29.70 Gastritis, unspecified, without bleeding; M35.00 Sjogren syndrome, unspecified; F41.9 Anxiety disorder, unspecified; M19.90 Unspecified osteoarthritis, unspecified site; Z11.52 Encounter for screening for COVID-19; Z90.49 Acquired absence of other specified parts of digestive tract; Z90.710 Acquired absence of both cervix and uterus; Z88.2 Allergy status to sulfonamides; Z88.5 Allergy status to narcotic agent
CPT/HCPCS: 36415; 36569; 45378; 71045; 74174; 74470; 78278; 80053; 81001; 82948; 83540; 83735; 84466; 85014; 85018; 85025; 85610; 85730; 86850; 86900; 86920; 94760; 94799; 99252; 99285; A9512; J0171; J0330; J0360; J0696; J1100; J1644; J1940; J1980; J2001; J2353; J2354; J2405; J2470; J2550; J2916; J7030; J7040; J7050; P9016; P9017; Q9967; U0002

== ENCOUNTER 2024-07-05 13:29 | Emergency (ER) | payer MEDICARE, OTHER ==
[~2024-07-05] VITALS: Ht 157.5 cm; Wt 51.7 kg
[2024-07-05 13:45] VITALS: PULSE 102; RESP 15; TEMP 98.4; O2SAT 97
[2024-07-05] MEDS: TETANUS/DIPHTHERIA TOX ADULT 0.5 ML SYR IM ONE (14:29)
== END 2024-07-05 14:40 | disposition home or self-care (01) ==
LOC: ER 13:32
DX: S81.812A Laceration without foreign body, left lower leg, initial encounter (principal); W22.8XXA Striking against or struck by other objects, initial encounter; Y92.89 Other specified places as the place of occurrence of the external cause; I10 Essential (primary) hypertension; I48.91 Unspecified atrial fibrillation; D64.9 Anemia, unspecified; F41.9 Anxiety disorder, unspecified; K21.9 Gastro-esophageal reflux disease without esophagitis; Z87.19 Personal history of other diseases of the digestive system
CPT/HCPCS: 90471; 90714; 99282

== ENCOUNTER 2025-03-10 18:29 | Emergency (ER) | payer MEDICARE, OTHER ==
[~2025-03-10] VITALS: Ht 157.5 cm; Wt 51.7 kg
[2025-03-10] MEDS: CLONIDINE HCL 0.1 MG TAB PO ONE (19:32)
[2025-03-10 21:05] VITALS: TEMP 98.6
[2025-03-10] MEDS ORDERED: LOSARTAN POTASSIUM 100 MG TAB PO STA (21:08)
[2025-03-10 21:27] VITALS: BP 191/90
[2025-03-10] MEDS: LOSARTAN POTASSIUM 25 MG TAB PO STA (21:27)
[2025-03-10] MEDS: ACETAMINOPHEN 325 MG TAB PO ONE (21:27)
[2025-03-10 22:06] VITALS: PULSE 76; RESP 16; O2SAT 99
== END 2025-03-10 22:38 | disposition home or self-care (01) ==
LOC: ER 18:47
DX: R58 Hemorrhage, not elsewhere classified (principal); R51.9 Headache, unspecified; I16.0 Hypertensive urgency; I10 Essential (primary) hypertension; I48.91 Unspecified atrial fibrillation; D64.9 Anemia, unspecified; K21.9 Gastro-esophageal reflux disease without esophagitis; F41.9 Anxiety disorder, unspecified; M35.00 Sjogren syndrome, unspecified; Z87.19 Personal history of other diseases of the digestive system
CPT/HCPCS: 70450; 99283

== ENCOUNTER 2025-03-27 11:57 | Emergency (ER) | payer MEDICARE, OTHER ==
[~2025-03-27] VITALS: Ht 157.5 cm; Wt 51.8 kg
[2025-03-27 13:26] VITALS: PULSE 80; RESP 22
[2025-03-27] MEDS: ALBUTEROL/IPRATROPIUM 3 ML NEB NEB ONE (13:26)
[2025-03-27] MEDS ORDERED: AMOXICILLIN500 MG PO (13:34)
[2025-03-27] MEDS ORDERED: VENTOLIN HFA18 GM INH (13:35)
[2025-03-27 14:16] VITALS: PULSE 74; RESP 18; TEMP 99.1; O2SAT 97
[2025-03-27] MEDS ORDERED: BUDESONIDE0.25 MG/2 INH (14:18)
== END 2025-03-27 14:17 | disposition home or self-care (01) ==
LOC: FSED 12:11
DX: R05.9 Cough, unspecified (principal); R09.81 Nasal congestion; R06.2 Wheezing; I10 Essential (primary) hypertension; I48.91 Unspecified atrial fibrillation; D64.9 Anemia, unspecified; K21.9 Gastro-esophageal reflux disease without esophagitis; F41.9 Anxiety disorder, unspecified; Z11.52 Encounter for screening for COVID-19; Z87.19 Personal history of other diseases of the digestive system
CPT/HCPCS: 0223U; 71046; 80053; 81003; 85025; 87400; 87420; 99284; J0696

== ENCOUNTER 2025-04-10 14:42 | Inpatient (IN) | payer MEDICARE, OTHER ==
[~2025-04-10] VITALS: Ht 157.5 cm; Wt 49.9 kg
[~2025-04-10 14:42] MED LIST changes: +AMOXICILLIN500 MG PO; +BUDESONIDE0.25 MG/2 INH; +VENTOLIN HFA18 GM INH
[2025-04-10] MEDS ORDERED: SODIUM CHLORIDE FLUSH 10 ML SYR IV PRN (15:00)
[2025-04-10 15:55] LABS: BASOPHILS % 0.2 % (0.0-1.0); EOSINOPHILS % 0.2 % (0.0-6.0); LYMPHOCYTES % 4.2 % (18.0-39.1); MONOCYTES % 5.9 % (4.4-11.3); NEUTROPHILS % 88.4 % (38.7-80.0); RED CELL DISTRIBUTION WIDTH 13.5 % (11.7-14.4)
[2025-04-10] MEDS: SODIUM CHLORIDE 0.9% 1000ML 1,000 ML IV ONE (15:57)
[2025-04-10 16:20] LABS: EST GLOMERULAR FILTRATION RATE 65.0 ML/MIN (>=60)
[2025-04-10] MEDS ORDERED: IOPAMIDOL 370 MG/ML 100 ML INFUS..BTL INJ ONE (17:38)
[2025-04-10 19:17] VITALS: PULSE 96; RESP 23; TEMP 98.6
[2025-04-10] MEDS: SODIUM CHLORIDE 0.9% 1000ML 1,000 ML IV SCH (20:31)
[2025-04-10 22:21] VITALS: BP 133/95; PULSE 91; RESP 16; TEMP 98.2; O2SAT 99
[2025-04-10] MEDS: GUAIFENESIN/DEXTROMETHORPHAN LIQD 5 ML UDC PO PRN (22:28)
[2025-04-10] MEDS: Morphine 2mg Syringe 2 MG/ML SYR IV PRN (23:59)
[2025-04-10] MEDS: ONDANSETRON HCL INJ 2MG/ML 2ML 2 MG/ML VIAL IV PRN (23:59)
[2025-04-11] VITALS (9 sets, daily range): BP systolic 132–169; BP diastolic 72–94; PULSE 67–85; RESP 13–19; TEMP 97.9–98.4; O2SAT 96–99
[2025-04-11] MEDS: METRONIDAZOLE 500MG/NS 100ML 100 ML IV SCH (01:10)
[2025-04-11] MEDS: LEVOFLOXACIN 500MG/D5W 100ML 100 ML IV SCH (01:11)
[2025-04-11 05:39] LABS: BASOPHILS % 0.2 % (0.0-1.0); EOSINOPHILS % 0.8 % (0.0-6.0); LYMPHOCYTES % 9.6 % (18.0-39.1); MONOCYTES % 7.2 % (4.4-11.3); NEUTROPHILS % 81.6 % (38.7-80.0); RED CELL DISTRIBUTION WIDTH 13.6 % (11.7-14.4)
[2025-04-11 06:25] LABS: EST GLOMERULAR FILTRATION RATE 89.0 ML/MIN (>=60)
[2025-04-11] MEDS: LOSARTAN POTASSIUM 100 MG TAB PO SCH (09:35)
[2025-04-11 15:08] LABS: CDIFF AG QUIK CHEK NEGATIVE (NEGATIVE); CDIFF TOX QUIK CHEK NEGATIVE (NEGATIVE)
[2025-04-11] MEDS: ALBUTEROL/IPRATROPIUM 3 ML NEB NEB PRN (20:30)
[2025-04-11] MEDS: ZOLPIDEM TARTRATE 5 MG TAB PO PRN (21:30)
[2025-04-12] VITALS (10 sets, daily range): BP systolic 128–176; BP diastolic 76–87; PULSE 78–101; RESP 18–20; TEMP 97.8–98.5; O2SAT 95–100
[2025-04-12 00:10] LABS: LEUKOCYTE ESTERASE ,URINE NEGATIVE (NEGATIVE); PROTEIN,URINE DIPSTICK NEGATIVE (NEGATIVE); URINE UROBILINOGEN 0.2 mg/dL (0.2 - 1)
[2025-04-12 00:14] LABS: EPITHELIAL CELLS,URINE FEW /LPF; OTHER CRYSTALS,URINE PRESENT; WBC,URINE (MAN) 0-5 /HPF (0-5); YEAST,URINE FEW
[2025-04-12] MEDS ORDERED: ATIVAN0.5 MG PO (01:26)
[2025-04-12] MEDS: LORAZEPAM 0.5 MG TAB PO PRN (01:44)
[2025-04-12] MEDS ORDERED: ZOLPIDEM TARTRATE 5 MG TAB PO PRN (04:30)
[2025-04-12] MEDS: HYDRALAZINE HCL 20 MG/ML VIAL IV PRN (04:49)
[2025-04-12] MEDS: HYDROXYZINE HCL 25 MG TAB PO ONE (06:10)
[2025-04-12 07:39] LABS: BASOPHILS % 0.2 % (0.0-1.0); EOSINOPHILS % 1.5 % (0.0-6.0); LYMPHOCYTES % 7.9 % (18.0-39.1); MONOCYTES % 7.3 % (4.4-11.3); NEUTROPHILS % 82.3 % (38.7-80.0); RED CELL DISTRIBUTION WIDTH 13.5 % (11.7-14.4)
[2025-04-12 08:08] LABS: EST GLOMERULAR FILTRATION RATE 93.0 ML/MIN (>=60)
[2025-04-12] MEDS: POTASSIUM CHLORIDE 20 MEQ TAB CR PO ONE (09:49)
[2025-04-12] MEDS: POTASSIUM CHLORIDE 20 MEQ TAB CR PO SCH (09:49)
[2025-04-12] MEDS: LOPERAMIDE HCL 2 MG CAP PO PRN (11:40)
[2025-04-12] MEDS: LEVOFLOXACIN 250 MG TAB PO SCH ×2 (14:00→16:06)
[2025-04-12] MEDS: METHYLPREDNISOLONE SOD SUCC 40 MG/ML VIAL 1ML IV SCH (16:00)
[2025-04-12] MEDS: BUDESONIDE 0.25 MG/2 ML NEB NEB SCH (16:15)
[2025-04-12] MEDS: ACETYLCYSTEINE 200 MG/ML 4 ML VIAL INH SCH (19:00)
[2025-04-12] MEDS ORDERED: LEVOFLOXACIN 250 MG TAB PO SCH (21:00)
[2025-04-12] MEDS: POTASSIUM CHLORIDE 20 MEQ TAB CR PO STA (22:25)
[2025-04-12] MEDS ORDERED: ZOLPIDEM TART12.5 MG PO (22:25)
[2025-04-12] MEDS ORDERED: ZOLPIDEM TARTRATE 10 MG TAB PO PRN (22:30)
[2025-04-12] MEDS: IPRATROPIUM BROMIDE 0.02% 2.5 ML NEB NEB SCH (23:00)
[2025-04-13] VITALS (11 sets, daily range): BP systolic 123–160; BP diastolic 68–91; PULSE 80–101; RESP 16–19; TEMP 97.2–98.3; O2SAT 96–100
[2025-04-13 05:16] LABS: BASOPHILS % 0.2 % (0.0-1.0); EOSINOPHILS % 2.7 % (0.0-6.0); LYMPHOCYTES % 12.4 % (18.0-39.1); MONOCYTES % 11.1 % (4.4-11.3); NEUTROPHILS % 73.0 % (38.7-80.0); RED CELL DISTRIBUTION WIDTH 13.8 % (11.7-14.4)
[2025-04-13 05:51] LABS: EST GLOMERULAR FILTRATION RATE 91.0 ML/MIN (>=60)
[2025-04-13] MEDS: MAGNESIUM SULFATE 2GM/50ML 50 ML IV ONE (07:04)
[2025-04-13] MEDS: ZOLPIDEM TARTRATE 12.5 MG PO PRN (21:35)
[2025-04-14] VITALS (9 sets, daily range): BP systolic 135–179; BP diastolic 78–99; PULSE 85–108; RESP 16–20; TEMP 97.8–98.2; O2SAT 98–100
[2025-04-14 06:23] LABS: BASOPHILS % 0.1 % (0.0-1.0); EOSINOPHILS % 0.0 % (0.0-6.0); LYMPHOCYTES % 6.0 % (18.0-39.1); MONOCYTES % 3.3 % (4.4-11.3); NEUTROPHILS % 89.7 % (38.7-80.0); RED CELL DISTRIBUTION WIDTH 13.8 % (11.7-14.4)
[2025-04-14 06:31] LABS: EST GLOMERULAR FILTRATION RATE 92.0 ML/MIN (>=60)
[2025-04-14] MEDS: FUROSEMIDE INJ 10 MG/ML 2 ML VIAL IV ONE (12:34)
[2025-04-14] MEDS: FAMOTIDINE 20 MG/2 ML VIAL IV SCH (12:34)
[2025-04-14] MEDS: [UNRECOGNIZED DRUG - OTHER] PO PRN (21:49)
[2025-04-15] VITALS (10 sets, daily range): BP systolic 143–172; BP diastolic 91–103; PULSE 75–110; RESP 16–20; TEMP 97.4–98.3; O2SAT 98–100
[2025-04-15] MEDS: ACETAMINOPHEN 325 MG TAB PO PRN (06:37)
[2025-04-15 12:22] LABS: BASOPHILS % 0.1 % (0.0-1.0); EOSINOPHILS % 0.0 % (0.0-6.0); LYMPHOCYTES % 6.4 % (18.0-39.1); MONOCYTES % 11.9 % (4.4-11.3); NEUTROPHILS % 80.4 % (38.7-80.0); RED CELL DISTRIBUTION WIDTH 14.1 % (11.7-14.4)
[2025-04-15 13:07] LABS: EST GLOMERULAR FILTRATION RATE 89.0 ML/MIN (>=60)
[2025-04-15] MEDS: GABAPENTIN 100 MG CAP PO SCH (20:37)
[2025-04-16] VITALS (10 sets, daily range): BP systolic 133–161; BP diastolic 80–92; PULSE 79–96; RESP 16–21; TEMP 97.5–98.6; O2SAT 96–100
[2025-04-16 06:54] LABS: BASOPHILS % 0.1 % (0.0-1.0); EOSINOPHILS % 0.4 % (0.0-6.0); LYMPHOCYTES % 26.3 % (18.0-39.1); MONOCYTES % 16.5 % (4.4-11.3); NEUTROPHILS % 55.3 % (38.7-80.0); RED CELL DISTRIBUTION WIDTH 14.1 % (11.7-14.4)
[2025-04-16 07:19] LABS: EST GLOMERULAR FILTRATION RATE 87.0 ML/MIN (>=60)
[2025-04-16] MEDS: METHYLPREDNISOLONE SOD SUCC 40 MG/ML VIAL 1ML IV SCH (09:25)
[2025-04-17] VITALS (9 sets, daily range): BP systolic 125–175; BP diastolic 80–95; PULSE 82–94; RESP 16–18; TEMP 97.5–98.6; O2SAT 95–100
[2025-04-17] MEDS ORDERED: SODIUM CHLORIDE 0.9% 250ML 250 ML ONE (16:14)
[2025-04-18] VITALS: BP 163/91; PULSE 108; RESP 20; TEMP 98.1; O2SAT 100
[2025-04-18 04:00] VITALS: BP 154/88; PULSE 88; RESP 18; TEMP 97.9; O2SAT 98
[2025-04-18 07:56] VITALS: PULSE 98; RESP 18; O2SAT 99
[2025-04-18 08:58] VITALS: BP 157/87; PULSE 84; RESP 19; TEMP 98.2; O2SAT 95
[2025-04-18 09:19] VITALS: BP 157/87
[2025-04-18] MEDS: PREDNISONE 20 MG TAB PO SCH (09:19)
[2025-04-18] MEDS ORDERED: ONDANSETRON HCL 4 MG ORAL DISINTEGRATING TAB PO PRN (12:00)
[2025-04-18] MEDS ORDERED: METRONIDAZOLE 500 MG TAB PO SCH (14:00)
== END 2025-04-18 15:00 | disposition home or self-care (01) | DRG 371 ==
LOC: ER 14:47 → ERHOLD 17:34 → MED/SURG 21:46 → OBSVTOIN 04-12 10:24 → MED/SURG3 04-17 15:23
PROVIDERS: ADMIT Internal Medicine; ATTEND Internal Medicine
PROC: 02HV33Z Insertion of Infusion Device into Superior Vena Cava, Percutaneous Approach (ICD-10-PCS; principal; 2025-04-13)
DX: A04.9 Bacterial intestinal infection, unspecified (principal); J18.9 Pneumonia, unspecified organism; K51.50 Left sided colitis without complications; J44.1 Chronic obstructive pulmonary disease with (acute) exacerbation; J44.0 Chronic obstructive pulmonary disease with (acute) lower respiratory infection; I10 Essential (primary) hypertension; D64.9 Anemia, unspecified; K21.9 Gastro-esophageal reflux disease without esophagitis; E83.42 Hypomagnesemia; E87.70 Fluid overload, unspecified; J40 Bronchitis, not specified as acute or chronic; K44.9 Diaphragmatic hernia without obstruction or gangrene; R53.81 Other malaise; R55 Syncope and collapse; E87.6 Hypokalemia; M35.00 Sjogren syndrome, unspecified; F41.9 Anxiety disorder, unspecified; Z90.49 Acquired absence of other specified parts of digestive tract; Z90.710 Acquired absence of both cervix and uterus; Z88.2 Allergy status to sulfonamides; Z88.5 Allergy status to narcotic agent
CPT/HCPCS: 36415; 36569; 71045; 71260; 74177; 80053; 81001; 82550; 83690; 83735; 84484; 85025; 87040; 87324; 87449; 93005; 94640; 94760; 94799; 99252; 99284; G0378; J0360; J1308; J1938; J1956; J2270; J2405; J2470; J2919; J3410; J3475; J7030; J7050; J7512; Q9967

== ENCOUNTER 2025-06-19 21:12 | Emergency (ER) | payer MEDICARE, OTHER ==
[~2025-06-19] VITALS: Ht 157.5 cm; Wt 49.9 kg
[~2025-06-19 21:12] MED LIST changes: +ZOLPIDEM TART12.5 MG PO
[2025-06-19 22:42] VITALS: TEMP 98.4
[2025-06-20 01:00] VITALS: PULSE 84; RESP 17; O2SAT 100
[2025-06-20] MEDS ORDERED: BACITRACIN ZINC 0.9GM TP ONE (01:11)
[2025-06-20] MEDS: BACITRACIN ZINC 0.9GM TP SCH (01:25)
== END 2025-06-20 01:30 | disposition home or self-care (01) ==
LOC: ER 23:01
DX: S41.111A Laceration without foreign body of right upper arm, initial encounter (principal); S81.812A Laceration without foreign body, left lower leg, initial encounter; W01.0XXA Fall on same level from slipping, tripping and stumbling without subsequent striking against object, initial encounter; Y93.01 Activity, walking, marching and hiking; Y92.89 Other specified places as the place of occurrence of the external cause; I10 Essential (primary) hypertension; K21.9 Gastro-esophageal reflux disease without esophagitis; M35.00 Sjogren syndrome, unspecified; Z87.19 Personal history of other diseases of the digestive system
CPT/HCPCS: 99283